=== PATIENT | male | born 1960 | race Caucasian/White ===

== ENCOUNTER 2019-11-11 09:38 | Inpatient (IN) | payer MEDICARE ==
[2019-11-11] MEDS ORDERED: SODIUM CHLORIDE 0.9% 1,000 ML IV STA (10:30)
[2019-11-11] MEDS ORDERED: LORazepam 2 MG/ML INJ IV STA (10:30)
[2019-11-11] MEDS ORDERED: SODIUM CHLORIDE 0.9% 500 ML 500 ML IV STA (10:31)
--- NOTE | 2019-11-11 10:34 | ED ---
General Adult HPI - General Source: patient, family, RN notes reviewed Mode of arrival: wheelchair Limitations: no limitations <Ozzie Naranjo - Last Filed: 11/11/19 12:40> <Christiano Tirado - Last Filed: 11/11/19 14:11> - General Chief complaint: Seizure Stated complaint: Seizure,withdrawal Time Seen by Provider: 11/11/19 10:22 - History of Present Illness Initial comments: 59-year-old male with a past medical history of alcoholism presents to the emergency department for seizure. Patient states that he quit drinking around midnight last night. States he usually drinks a few pints of vodka per day. States he has had a lot going on his life and his daughter was recently released from an ICU so he decided to quit drinking. States that this morning he had a seizure. States that he hit his head, unsure of loss of consciousness. States he does have a headache at this time. States he cannot stop shaking.Patient has no other complaints at this time including shortness of breath, chest pain, abdominal pain, nausea or vomiting, headache, or visual changes. (Ozzie Naranjo) - Related Data Allergies Allergy/AdvReac Type Severity Reaction Status Date / Time No Known Allergies Allergy Verified 11/11/19 10:06 Review of Systems ROS Other: All systems not noted in ROS Statement are negative. <Ozzie Naranjo - Last Filed: 11/11/19 12:40> ROS Other: All systems not noted in ROS Statement are negative. <Christiano Tirado - Last Filed: 11/11/19 14:11> ROS Statement: Those systems with pertinent positive or pertinent negative responses have been documented in the HPI. Past Medical History Additional Past Medical History / Comment(s): seizure from etoh states drank last night and had seizure this am states hit head requesting meds in triage for shaking Past Surgical History: Joint Replacement, Orthopedic Surgery Additional Past Surgical History / Comment(s): 3 l knee replacement r hip Past Psychological History: Anxiety, Depression Smoking Status: Current every day smoker Past Alcohol Use History: Abuse, Daily, Heavy Past Drug Use History: None Reported <Ozzie Naranjo - Last Filed: 11/11/19 12:40> General Exam Limitations: no limitations General appearance: alert, in no apparent distress Head exam: Present: atraumatic, normocephalic, normal inspection Eye exam: Present: normal appearance, PERRL, EOMI, other (Patient has abnormal right pupil secondary to injury from childhood). Absent: scleral icterus, conjunctival injection, periorbital swelling ENT exam: Present: normal exam, mucous membranes moist Neck exam: Present: normal inspection, full ROM. Absent: tenderness, meningismus Respiratory exam: Present: normal lung sounds bilaterally. Absent: respiratory distress, wheezes, rales, rhonchi, stridor Cardiovascular Exam: Present: regular rate, normal rhythm, normal heart sounds. Absent: systolic murmur, diastolic murmur, rubs, gallop, clicks Extremities exam: Present: other (Tremors noted) <Ozzie Naranjo - Last Filed: 11/11/19 12:40> Course <Christiano Tirado - Last Filed: 11/11/19 14:11> Vital Signs 11/11/19 10:02 Temperature 98.3 F Pulse Rate 71 Respiratory 18 Rate Blood Pressure 120/77 O2 Sat by Pulse 95 Oximetry - Reevaluation(s) Reevaluation #1: 11/11/19 12:47 Reevaluation: I proceeded evaluate this patient he did present with complaints of a seizure today. He is alcoholic and does drink large amount of alcohol daily. He states he had none since yesterday. Alcohol level still over 100 upon arrival here. Patient's impending alcohol withdrawal/DTs. Patient will be admitted I did discuss case with Dr. Lazaro (Christiano Tirado) EKG Findings - EKG Comments: EKG Findings:: Normal sinus rhythm, right bundle-branch block, ventricular rate 66, MI interval 166, QTc 457 <Ozzie Naranjo - Last Filed: 11/11/19 12:40> Medical Decision Making - Lab Data Result diagrams: 11/11/19 10:41 11/11/19 10:41 <Ozzie Naranjo - Last Filed: 11/11/19 12:40> - Lab Data Result diagrams: 11/11/19 10:41 11/11/19 10:41 <Christiano Tirado - Last Filed: 11/11/19 14:11> - Medical Decision Making CBC CMP unremarkable. Urinalysis unremarkable. Patient has a serum alcohol of 103. CT of the brain and C-spine was obtained which showed age-related atrophic and chronic small vessel ischemic change without acute intercranial process seen. CT cervical spine shows no evidence for acute fracture or subluxation. Patient was given Ativan which did help with tremors. However as patient did have a seizure earlier today he will be admitted on [facility] protocol for impending DTs. (Ozzie Naranjo) - Lab Data Lab Results 11/11/19 11/11/19 11/11/19 Range/Units 10:41 10:41 10:41 WBC 8.0 (3.8-10.6) k/uL RBC 4.18 L (4.30-5.90) m/uL Hgb 13.6 (13.0-17.5) gm/dL Hct 39.0 (39.0-53.0) % MCV 93.3 (80.0-100.0) fL MCH 32.4 (25.0-35.0) pg MCHC 34.7 (31.0-37.0) g/dL RDW 16.3 H (11.5-15.5) % Plt Count 256 (150-450) k/uL Neutrophils % 74 % Lymphocytes % 15 % Monocytes % 8 % Eosinophils % 2 % Basophils % 0 % Neutrophils # 5.9 (1.3-7.7) k/uL Lymphocytes # 1.2 (1.0-4.8) k/uL Monocytes # 0.6 (0-1.0) k/uL Eosinophils # 0.2 (0-0.7) k/uL Basophils # 0.0 (0-0.2) k/uL Anisocytosis Slight Sodium 139 (137-145) mmol/L Potassium 4.4 (3.5-5.1) mmol/L Chloride 101 (98-107) mmol/L Carbon Dioxide 27 (22-30) mmol/L Anion Gap 11 mmol/L BUN 15 (9-20) mg/dL Creatinine 0.91 (0.66-1.25) mg/dL Est GFR (CKD-EPI)AfAm >90 (>60 ml/min/1.73 sqM) Est GFR (CKD-EPI)NonAf >90 (>60 ml/min/1.73 sqM) Glucose 83 (74-99) mg/dL Calcium 9.3 (8.4-10.2) mg/dL Magnesium 1.7 (1.6-2.3) mg/dL Total Bilirubin 0.8 (0.2-1.3) mg/dL AST 54 (17-59) U/L ALT 17 (4-49) U/L Alkaline Phosphatase 64 (38-126) U/L Total Protein 7.3 (6.3-8.2) g/dL Albumin 4.4 (3.5-5.0) g/dL Urine Color Yellow Urine Appearance Clear (Clear) Urine pH 5.5 (5.0-8.0) Ur Specific [place] 1.015 (1.001-1.035) Urine Protein 2+ H (Negative) Urine Glucose (UA) Negative (Negative) Urine Ketones Negative (Negative) Urine Blood Negative (Negative) Urine Nitrite Negative (Negative) Urine Bilirubin Negative (Negative) Urine Urobilinogen <2.0 (<2.0) mg/dL Ur Leukocyte Esterase Negative (Negative) Urine RBC 1 (0-5) /hpf Urine WBC <1 (0-5) /hpf Ur Squamous Epith Cells <1 (0-4) /hpf Hyaline Casts 3 H (0-2) /lpf Urine Mucus Rare H (None) /hpf Salicylates <1.0 mg/dL Urine Opiates Screen Not Detected (NotDetected) Ur Oxycodone Screen Not Detected (NotDetected) Urine Methadone Screen Not Detected (NotDetected) Ur Propoxyphene Screen Not Detected (NotDetected) Ur Barbiturates Screen Not Detected (NotDetected) U Tricyclic Antidepress Not Detected (NotDetected) Ur Phencyclidine Scrn Not Detected (NotDetected) Ur Amphetamines Screen Not Detected (NotDetected) U Methamphetamines Scrn Not Detected (NotDetected) U Benzodiazepines Scrn Not Detected (NotDetected) Urine Cocaine Screen Not Detected (NotDetected) U Marijuana (THC) Screen Not Detected (NotDetected) Serum Alcohol 103 mg/dL Disposition Is patient prescribed a controlled substance at d/c from ED?: No Time of Disposition: 12:42 <Ozzie Naranjo - Last Filed: 11/11/19 12:40> <Christiano Tirado - Last Filed: 11/11/19 14:11> Clinical Impression: Alcohol withdrawal, Seizure Disposition: ADMITTED IP TO THIS HOSP Condition: Fair Referrals: Nonstaff,Physician [REFERRING] - 1-2 days
[2019-11-11 11:16] LABS: Anisocytosis Slight; Basophils % (A) 0 %; Eosinophils # (A) 0.2 k/uL (0-0.7); Eosinophils % (A) 2 %; HGB 13.6 gm/dL (13.0-17.5); Lymphocytes # (A) 1.2 k/uL (1.0-4.8); Lymphocytes % (A) 15 %; MCH 32.4 pg (25.0-35.0); MCHC 34.7 g/dL (31.0-37.0); MCV 93.3 fL (80.0-100.0); Monocytes # (A) 0.6 k/uL (0-1.0); Monocytes % (A) 8 %; Neutrophils # (A) 5.9 k/uL (1.3-7.7); Neutrophils % (A) 74 %; Platelet Count 256 k/uL (150-450); RBC 4.18 m/uL (4.30-5.90); RDW 16.3 % (11.5-15.5)
[2019-11-11 11:21] LABS: ALT 17 U/L (4-49); AST 54 U/L (17-59); African American GFR (CKD) >90 (>60 ml/min/1.73 sqM); Albumin 4.4 g/dL (3.5-5.0); Alkaline Phosphatase 64 U/L (38-126); Anion Gap 11 mmol/L; Blood Urea Nitrogen 15 mg/dL (9-20); Calcium 9.3 mg/dL (8.4-10.2); Carbon Dioxide 27 mmol/L (22-30); Chloride 101 mmol/L (98-107); Glucose 83 mg/dL (74-99); Magnesium 1.7 mg/dL (1.6-2.3); Non-African American GFR(CKD) >90 (>60 ml/min/1.73 sqM); Potassium 4.4 mmol/L (3.5-5.1); Salicylate <1.0 mg/dL; Sodium 139 mmol/L (137-145); Total Bilirubin 0.8 mg/dL (0.2-1.3); Total Protein 7.3 g/dL (6.3-8.2)
[2019-11-11 11:27] LABS: Alcohol 103 mg/dL
[2019-11-11 11:33] LABS: Appearance,Urine Clear (Clear); Bilirubin,Urine Negative (Negative); Blood,Urine Negative (Negative); Color,Urine Yellow; Glucose,Urine (UA) Negative (Negative); Hyaline Casts,Urine 3 /lpf (0-2); Ketones,Urine Negative (Negative); Leukocyte Esterase,Urine Negative (Negative); Mucus,Urine Rare /hpf; Nitrite,Urine Negative (Negative); PH, Urine 5.5 (5.0-8.0); Protein,Urine 2+ (Negative); RBC,Urine 1 /hpf (0-5); Specific Gravity,Urine 1.015 (1.001-1.035); Squamous Epithelial Cell,Urine <1 /hpf (0-4); Urobilinogen,Urine <2.0 mg/dL (<2.0); WBC,Urine <1 /hpf (0-5)
[2019-11-11 11:53] LABS: Amphetamine Screen,Urine Not Detected (NotDetected); Barbiturate Screen,Urine Not Detected (NotDetected); Benzodiazepines Screen,Urine Not Detected (NotDetected); Cocaine Screen,Urine Not Detected (NotDetected); Methadone Screen, Urine Not Detected (NotDetected); Opiate Screen,Urine Not Detected (NotDetected); Oxycodone Screen, Urine Not Detected (NotDetected); Phencyclidine Screen,Urine Not Detected (NotDetected); Tricyclic Antidepressant,Urine Not Detected (NotDetected); Urn Cannabinoid Scrn Not Detected (NotDetected)
--- NOTE | 2019-11-11 12:04 | CT ---
EXAMINATION TYPE: CT brain sung stuart DATE OF EXAM: 11/11/2019 COMPARISON: None HISTORY: Seizure CT DLP: 1349.[address] of the brain was performed. The ventricles, basal cisterns and sulci overlying the cerebral convexities demonstrate mild enlargem ent. There is no evidence for intracranial hemorrhage or sulcal effacement. There is decreased attenuatio n about the periventricular white matter and deep white matter of both cerebral hemispheres, compatib le with chronic small vessel ischemia. No mass effects are seen. If symptoms persist consider MRI. Osseous calvarium is intact. IMPRESSION: 1. Age related atrophic and chronic small vessel ischemic change without acute intracranial process seen at this time. CT Cervical Spine: Unenhanced CT of the cervical spine was performed with bone and soft tissue window settings submitted . Coronal and sagittal reconstruction is obtained. There is normal alignment and prevertebral soft tissues. No evidence for acute cervical fracture . Reversal of the normal cervical lordosis which can be seen in patients with muscle spasticity. Scatte red degenerative disc disease and spondylosis. Biapical scarring. IMPRESSION: 1. No evidence for acute fracture or subluxation of the cervical spine.
[2019-11-11] MEDS ORDERED: NALOXONE 0.4 MG/ML 1 ML VIAL IV PRN (12:42)
[2019-11-11] MEDS ORDERED: MAGNESIUM SULFATE-D5W PMX 1 GM in DEXTROSE/WATER 1 100ML.BAG IVPB ONE (12:42)
[2019-11-11] MEDS ORDERED: THIAMINE 100 MG/ML 2 ML VIAL IM STA (12:42)
[2019-11-11] MEDS ORDERED: LORazepam 2 MG/ML INJ IV PRN (12:42)
[2019-11-11] MEDS: SODIUM CHLORIDE 0.9% 1,000 ML IV SCH ×2 (13:34→21:43)
[2019-11-11] MEDS: LORazepam 2 MG/ML INJ IV PRN ×2 (16:00→21:29)
[2019-11-11] MEDS ORDERED: ALBUTEROL NEBULIZED 2.5 MG/3 ML INHALATION PRN (16:15)
--- NOTE | 2019-11-11 16:32 | P.HPIM ---
History of Present Illness 59-year-old male was admitted with the complaints of seizure patient is a poor historian and I can't get any clear history of seizures from the patient although he denies any bowel or bladder incontinence. I do not have any witnesses available at this time. Patient states he lives in a three quarters house which is a house for the people who quit alcohol but he started drinking about a week ago drinks about a pint of vodka quit drinking yesterday afternoon or evening started having seizure today. Although patient admits to having primary seizure disorder patient cannot remember the medication which we're trying to find out from the house where he lives. Patient says he had multiple seizures in the past because of which she is on antiseizure medication from his history patient appears like may have a primary seizure disorder. Patient is extremely poor historian and I do not see any of his past medical records to brandy racheal this unfortunately pharmacies are closed today as well. Patient will be on Ativan EEG will be obtained neurology will be consulted. Review of Systems REVIEW OF SYSTEMS: CONSTITUTIONAL: No fever, no malaise, no fatigue. HEENT: No recent visual problems or hearing problems. Denied any sore throat. CARDIOVASCULAR: No chest pain, orthopnea, PND, no palpitations, no syncope. PULMONARY: No shortness of breath, no cough, no hemoptysis. GASTROINTESTINAL: No diarrhea, no nausea, no vomiting, no abdominal pain. NEUROLOGICAL: No headaches, no weakness, no numbness. HEMATOLOGICAL: Denies any bleeding or petechiae. GENITOURINARY: Denies any burning micturition, frequency, or urgency. MUSCULOSKELETAL/RHEUMATOLOGICAL: Denies any joint pain, swelling, or any muscle pain. ENDOCRINE: Denies any polyuria or polydipsia. The rest of the 14-point review of systems is negative. Past Medical History Past Medical History: Seizure Disorder Additional Past Medical History / Comment(s): seizure from etoh states drank last night and had seizure this am states hit head requesting meds in triage fo r shaking History of Any Multi-Drug Resistant Organisms: None Reported Past Surgical History: Joint Replacement, Orthopedic Surgery Additional Past Surgical History / Comment(s): 3 l knee replacement r hip Past Anesthesia/Blood Transfusion Reactions: No Reported Reaction Past Psychological History: Anxiety, Depression Smoking Status: Current every day smoker Past Alcohol Use History: Abuse, Daily, Heavy Past Drug Use History: None Reported Medications and Allergies Home Medications Medication Instructions Recorded Confirmed Type Albuterol Inhaler [Ventolin Hfa 2 puff INHALATION RT-Q8H PRN 11/11/19 11/11/19 History Inhaler] Gabapentin [Neurontin] 600 mg PO QID 11/11/19 11/11/19 History LORazepam [Ativan] 2 mg PO HS 11/11/19 11/11/19 History Tamsulosin HCl [Flomax] 0.4 mg PO BID 11/11/19 11/11/19 History traZODone HCL 150 mg PO HS 11/11/19 11/11/19 History Allergies Allergy/AdvReac Type Severity Reaction Status Date / Time No Known Allergies Allergy Verified 11/11/19 13:16 Physical Exam Vitals: Vital Signs Temp Pulse Pulse Resp BP BP Pulse Ox 11/11/19 14:27 98.4 F 76 18 155/85 94 L 11/11/19 13:13 98.0 F 83 18 139/74 97 11/11/19 10:02 98.3 F 71 18 120/77 95 Intake and Output 11/11/19 11/11/19 11/11/19 06:59 14:59 22:59 Other: Weight 78.69 kg PHYSICAL EXAMINATION: GENERAL: The patient is oriented x3, not in any acute distress. Well developed, well nourished. Patient is drowsy sleepy HEENT: Pupils are round and equally reacting to light. EOMI. No scleral icterus. No conjunctival pallor. Normocephalic, atraumatic. No pharyngeal erythema. No thyromegaly. CARDIOVASCULAR: S1 and S2 present. No murmurs, rubs, or gallops. PULMONARY: Chest is clear to auscultation, no wheezing or crackles. ABDOMEN: Soft, nontender, nondistended, normoactive bowel sounds. No palpable organomegaly. MUSCULOSKELETAL: No joint swelling or deformity. EXTREMITIES: No cyanosis, clubbing, or pedal edema. NEUROLOGICAL: Gross neurological examination did not reveal any focal deficits. SKIN: No rashes. Results CBC & Chem 7: 11/11/19 10:41 11/11/19 10:41 Labs: Abnormal Lab Results - Last 24 Hours (Table) 11/11/19 11/11/19 Range/Units 10:41 10:41 RBC 4.18 L (4.30-5.90) m/uL RDW 16.3 H (11.5-15.5) % Urine Protein 2+ H (Negative) Hyaline Casts 3 H (0-2) /lpf Urine Mucus Rare H (None) /hpf Thrombosis Risk Factor Assmnt - Choose All That Apply Each Factor Represents 1 point: Medical pt on bed rest Thrombosis Risk Factor Assessment Total Risk Factor Score: 1 Thrombosis Risk Factor Assessment Level: Low Risk Assessment and Plan Plan: -Seizure: Patient may have had an alcohol withdrawal seizure although I cannot rule out a breakthrough seizure unsure whether what medications patient takes at home and patient is unable to give me a clear history. Neurology will be consulted EEG will be obtained. Patient will be on Ativan [facility] protocol. -Alcohol abuse -Alcohol withdrawal patient will be monitored and will be treated with Ativan as needed for withdrawal -Possible seizure disorder -Depression
[2019-11-11] MEDS: THIAMINE 100 MG TAB PO SCH (17:19)
[2019-11-11] MEDS: GABAPENTIN 300 MG CAP PO SCH ×2 (17:19→21:28)
[2019-11-11] MEDS: FAMOTIDINE 20 MG TAB PO SCH (21:29)
[2019-11-11] MEDS: TAMSULOSIN 0.4 MG CAP.ER.24H PO SCH (21:29)
[2019-11-11] MEDS ORDERED: traZODone HCL 50 MG TAB PO ONE (21:36)
[2019-11-11] MEDS: HEPARIN SODIUM,PORCINE 5,000 UNIT/ML 1 ML VIAL SQ SCH (23:21)
[2019-11-12] MEDS: LORazepam 2 MG/ML INJ IV PRN ×2 (06:05→21:11)
[2019-11-12] MEDS: SODIUM CHLORIDE 0.9% 1,000 ML IV SCH ×2 (06:06→19:44)
[2019-11-12] MEDS: FAMOTIDINE 20 MG TAB PO SCH ×2 (08:35→21:11)
[2019-11-12] MEDS: GABAPENTIN 300 MG CAP PO SCH ×4 (08:35→21:11)
[2019-11-12] MEDS: HEPARIN SODIUM,PORCINE 5,000 UNIT/ML 1 ML VIAL SQ SCH ×3 (08:35→23:07)
[2019-11-12] MEDS: THIAMINE 100 MG TAB PO SCH ×2 (08:36→17:29)
[2019-11-12] MEDS: TAMSULOSIN 0.4 MG CAP.ER.24H PO SCH ×2 (08:36→21:11)
[2019-11-12] MEDS ORDERED: IBUPROFEN 600 MG TAB PO PRN (14:46)
--- NOTE | 2019-11-12 15:56 | EEG ---
ELECTROENCEPHALOGRAM REPORT DATE OF SERVICE: 11/12/2019. PREAMBLE: This is a 59-year-old male with history of seizure disorder and alcoholism. He has been drinking a pint of vodka a day. EEG FINDINGS: A routine 21-channel awake digital EEG recording was accomplished utilizing the 10/20 international system with bipolar and referential montages. The background consists of well developed, well regulated, moderate amplitude activity in 8 to 9 Hz alpha. Background is posterior-dominant and reactive to eye opening and closing. Photic driving response was not clearly seen. Drowsiness was seen with appearance of bilaterally symmetric theta frequency rhythm, but deeper stages of sleep were not seen. No focal or generalized epileptiform activity was seen. EKG rhythm lead revealed no acute dysrhythmia. IMPRESSION: This is a normal awake and drowsy EEG. No focal lateralized or epileptiform activity was seen. MMGRACEL / IJN: [id number] / MTDD
--- NOTE | 2019-11-12 18:05 | P.CNNES ---
History of Present Illness Consult date: 11/12/19 Requesting physician: Karly Franco Reason for Consult: Recent seizure History of Present Illness: Patient is a 59-year-old male, who is not a very good historian, states has history of alcoholism since he was age 25. Patient states that he is currently living in three-quarter house, and was sober, mated 90 days. He states that a few days ago, his daughter was involved in a car accident. He got stressed out. He started drinking, has been drinking fifth of vodka daily for last 3 days. He had a seizure, fell backwards. Did not bite his tongue or lost control of urine. Patient frequently changes statement about his seizure history. He states that he had suffered from some facial injury from scissors at age 8. Afterwards he started having seizures. He states that he was not treated for seizures in [place]. He states that he had about 15 seizures in his lifetime. He states he has been on Keppra for 30 years, although Keppra has been in the market only for last 15 years. He states that he takes Keppra 500 mg once a day, although when I asked told him that it is typically taken twice a day, he states "yes probably it is twice a day". He states that he needs prescription of Keppra, as ran out of Keppra but later stated that he has about a bottle full of Keppra, but has not taken it for the last few days. Patient's blood alcohol level was 103. Urine drug screen negative. UA is negative. CMP normal. CBC with MCV 93.3. Patient had an EEG performed today, which is normal. No epileptiform activity was seen. Review of Systems Complains of back pain related to fall from seizure. Denies headache, double vision, numbness tingling focal weakness. Past Medical History Past Medical History: Seizure Disorder Additional Past Medical History / Comment(s): seizure from etoh states drank la st night and had seizure this am states hit head requesting meds in triage for shaking History of Any Multi-Drug Resistant Organisms: None Reported Past Surgical History: Joint Replacement, Orthopedic Surgery Additional Past Surgical History / Comment(s): 3 l knee replacement r hip Past Anesthesia/Blood Transfusion Reactions: No Reported Reaction Past Psychological History: Anxiety, Depression Smoking Status: Current every day smoker Past Alcohol Use History: Abuse, Daily, Heavy Past Drug Use History: None Reported Medications and Allergies Home Medications Medication Instructions Recorded Confirmed Type Albuterol Inhaler [Ventolin Hfa 2 puff INHALATION RT-Q8H PRN 11/11/19 11/11/19 History Inhaler] Gabapentin [Neurontin] 600 mg PO QID 11/11/19 11/11/19 History LORazepam [Ativan] 2 mg PO HS 11/11/19 11/11/19 History Tamsulosin HCl [Flomax] 0.4 mg PO BID 11/11/19 11/11/19 History traZODone HCL 150 mg PO HS 11/11/19 11/11/19 History Allergies Allergy/AdvReac Type Severity Reaction Status Date / Time No Known Allergies Allergy Verified 11/11/19 13:16 Physical Examination - Vital Signs Vital Signs: Vital Signs Temp Pulse Resp BP Pulse Ox 11/12/19 11:28 98.3 F 66 17 130/61 96 11/12/19 05:00 98.3 F 98 16 130/71 96 11/11/19 22:22 99.5 F 82 20 143/78 95 Intake and Output 11/12/19 11/12/19 11/12/19 06:59 14:59 22:59 Intake Total 960 Balance 960 Intake: Intake, IV Titration 960 Amount Sodium Chloride 0.9% 1, 960 000 ml @ 120 mls/hr IV . Q8H20M [facility] Rx#:[id number] Other: Voiding Method Urinal Urinal Weight 78.69 kg On examination patient is a late middle aged male, in no distress. He is alert and awake. Speech is mildly dysarthric, but no aphasia. On cranial nerve examination pupils are round and reacting to light, visual wolff are full on confrontation extra muscles are intact with no nystagmus. Face is symmetric and tongue protrudes to the midline. Palatal elevation and sensation normal. On muscle strength testing the strength is normal in arms and legs distally and proximally reflexes symmetric and plantars downgoing no ataxia for [id number] tone and bulk of muscles normal. No bruit or murmur. Results - Laboratory Findings CBC and BMP: 11/11/19 10:41 11/11/19 10:41 Abnormal Lab Findings: Abnormal Labs 11/11/19 11/11/19 10:41 10:41 RBC 4.18 L RDW 16.3 H Urine Protein 2+ H Hyaline Casts 3 H Urine Mucus Rare H Assessment and Plan Assessment: * 59-year-old male with history of alcoholism, seizure disorder, came with alcohol intoxication and a possible seizure. Patient has not been taking his Keppra for the last few days. Plan: * Resume Keppra 500 mg twice a day. * Abstinence from alcohol. * Mobic for low back pain. * Watch for alcohol withdrawal. * Patient was informed of [place] state law of no driving unless seizure free for 6 months, climbing ladders, operating dangerous machinery or unsupervised swimming.
[2019-11-12] MEDS: MELOXICAM 7.5 MG TAB PO SCH (19:43)
[2019-11-12] MEDS: levETIRAcetam 500 MG TAB PO SCH (21:11)
[2019-11-12] MEDS ORDERED: traZODone HCL 50 MG TAB PO ONE (21:44)
[2019-11-13] MEDS: LORazepam 2 MG/ML INJ IV PRN ×8 (02:37→21:37)
[2019-11-13] MEDS: SODIUM CHLORIDE 0.9% 1,000 ML IV SCH ×2 (02:48→09:14)
[2019-11-13] MEDS: GABAPENTIN 300 MG CAP PO SCH ×4 (09:13→21:16)
[2019-11-13] MEDS: TAMSULOSIN 0.4 MG CAP.ER.24H PO SCH ×2 (09:13→21:16)
[2019-11-13] MEDS: levETIRAcetam 500 MG TAB PO SCH ×2 (09:14→21:16)
[2019-11-13] MEDS: HEPARIN SODIUM,PORCINE 5,000 UNIT/ML 1 ML VIAL SQ SCH ×3 (09:14→21:16)
[2019-11-13] MEDS: THIAMINE 100 MG TAB PO SCH ×2 (09:14→16:55)
[2019-11-13] MEDS: FAMOTIDINE 20 MG TAB PO SCH ×2 (09:14→21:16)
[2019-11-13] MEDS: MELOXICAM 7.5 MG TAB PO SCH (09:33)
--- NOTE | 2019-11-13 15:49 | P.PN ---
Subjective Progress Note Date: 11/13/19 Principal diagnosis: 59-year-old male was admitted with the complaints of seizure patient is a poor historian and I can't get any clear history of seizures from the patient although he denies any bowel or bladder incontinence. I do not have any witnesses available at this time. Patient states he lives in a three quarters house which is a house for the people who quit alcohol but he started drinking about a week ago drinks about a pint of vodka quit drinking yesterday afternoon or evening started having seizure today. Although patient admits to having primary seizure disorder patient cannot remember the medication which we're trying to find out from the house where he lives. Patient says he had multiple seizures in the past because of which she is on antiseizure medication from his history patient appears like may have a primary seizure disorder. Patient is extremely poor historian and I do not see any of his past medical records to verify this unfortunately pharmacies are closed today as well. Patient will be on Ativan EEG will be obtained neurology will be consulted. 11/13/2019 Patient is lying in bed sleeping but easily arousable. Per nursing staff senthil ent had an episode of incontinence of urine and stool and attempted to make it to the bathroom and shower and left the water running and stool everywhere. Patient proceeded to another patient's room completely naked and had to be redirected by nursing staff back to his room. Patient was resumed on Keppra and will continue at this time. Neurology is following. Trazodone for sleep was reordered as patient normally takes this daily. Patient underwent an EEG yesterday and was normal. Case management and social work are following as the patient has been staying in a three-quarter house and was sober for at least 3 months. Patient states that his daughter was in a motor vehicle accident and patient became extremely stressed and started drinking again over the last couple of days. Will continue to monitor closely. Review of Systems: Cardiovascular: No reports of chest pain or palpitations Respiratory: No reports of shortness of breath or cough GI: No reports of nausea, vomiting, or diarrhea : No reports of dysuria or retention Objective - Vital Signs Vital signs: Vital Signs Temp 98 F 11/13/19 12:09 Pulse 91 11/13/19 12:09 Resp 20 11/13/19 12:09 BP 140/78 11/13/19 12:09 Pulse Ox 96 11/13/19 12:09 Intake & Output 11/12/19 11/13/19 11/13/19 18:59 06:59 18:59 Intake Total 1380 960 Output Total 600 Balance -600 1380 960 Weight 78.69 kg Intake: Intake, IV Titration 1380 960 Amount Sodium Chloride 0.9% 1, 1380 960 000 ml @ 120 mls/hr IV . Q8H20M [facility] Rx#:[id number] Output: Urine 600 Other: Voiding Method Urinal Toilet Urinal # Voids 3 3 1 - Exam GENERAL: The patient is oriented x3, not in any acute distress. Well developed, well nourished. Patient is drowsy and sleeping but easily arousable HEENT: Pupils are round and equally reacting to light. EOMI. No scleral icterus. No conjunctival pallor. Normocephalic, atraumatic. No pharyngeal erythema. No thyromegaly. CARDIOVASCULAR: S1 and S2 present. No murmurs, rubs, or gallops. PULMONARY: Chest is clear to auscultation, no wheezing or crackles. ABDOMEN: Soft, non-tender, nondistended, normoactive bowel sounds. No palpable organomegaly. MUSCULOSKELETAL: No joint swelling or deformity. EXTREMITIES: No cyanosis, clubbing, or pedal edema. NEUROLOGICAL: Gross neurological examination did not reveal any focal deficits. SKIN: No rashes. - Labs CBC & Chem 7: 11/11/19 10:41 11/11/19 10:41 Assessment and Plan Assessment: -Seizure: Patient may have had an alcohol withdrawal seizure although I cannot rule out a breakthrough seizure unsure whether what medications patient takes at home and patient is unable to give me a clear history. Neurology will be consulted EEG will be obtained. Patient will be on Ativan [facility] protocol. EEG was normal. Patient was resumed on Keppra 500 mg twice daily. Neurology is following. -Alcohol abuse -Alcohol withdrawal patient will be monitored and will be treated with Ativan as needed for withdrawal -Possible seizure disorder -Depression Plan: Continue current medications, management, and symptomatic treatment. Continue with [facility] protocol for acute alcohol withdrawals. Trazodone reordered as part of his home medications. Case management and social work are following as patient currently resides at a three-quarter home but unsure if they will accept him back as he was sober for 90 days and recently experienced some stress with family and has been binge drinking for the last 3 days. Further recommendations to follow.
--- NOTE | 2019-11-13 17:37 | P.PN ---
Subjective Progress Note Date: 11/12/19 Patient was admitted for seizures and alcohol withdrawal neurology was consulted as there is a concern of primary seizure disorder. They're recommending Keppra and patient underwent the EEG results of which are pending. Constitutional: Denied any fatigue denied any fever. Cardio vascular: denied any chest pain, palpitations Gastrointestinal denied any nausea vomiting Pulmonary: Denied any shortness of breath cough Neurologic denied any new focal deficits All inpatient medications were reviewed and appropriate changes in these medications as dictated in the interval history and assessment and plan. Objective - Vital Signs Vital signs: Vital Signs Temp 98 F 11/13/19 12:09 Pulse 91 11/13/19 12:09 Resp 20 11/13/19 12:09 BP 140/78 11/13/19 12:09 Pulse Ox 96 11/13/19 12:09 Intake & Output 11/12/19 11/13/19 11/13/19 18:59 06:59 18:59 Intake Total 1380 960 Output Total 600 Balance -600 1380 960 Weight 78.69 kg Intake: Intake, IV Titration 1380 960 Amount Sodium Chloride 0.9% 1, 1380 960 000 ml @ 120 mls/hr IV . Q8H20M [facility] Rx#:[id number] Output: Urine 600 Other: Voiding Method Urinal Toilet Urinal # Voids 3 3 1 - Exam PHYSICAL EXAMINATION: GENERAL: The patient is alert and oriented x2-3, not in any acute distress. Well developed, well nourished. Patient does have alcohol withdrawal tremors HEENT: Pupils are round and equally reacting to light. EOMI. No scleral icterus. No conjunctival pallor. Normocephalic, atraumatic. No pharyngeal erythema. No thyromegaly. CARDIOVASCULAR: S1 and S2 present. No murmurs, rubs, or gallops. PULMONARY: Chest is clear to auscultation, no wheezing or crackles. ABDOMEN: Soft, nontender, nondistended, normoactive bowel sounds. No palpable organomegaly. MUSCULOSKELETAL: No joint swelling or deformity. EXTREMITIES: No cyanosis, clubbing, or pedal edema. NEUROLOGICAL: Gross neurological examination did not reveal any focal deficits. SKIN: No rashes. - Labs CBC & Chem 7: 11/11/19 10:41 11/11/19 10:41 Assessment and Plan Plan: -Seizure: Patient may have had an alcohol withdrawal seizure , neurology evaluated the patient patient on Keppra which will be resumed. Patient will be on Ativan CIWA protocol. -Alcohol abuse -Alcohol withdrawal patient will be monitored and will be treated with Ativan as needed for withdrawal -Possible seizure disorder -Depression
--- NOTE | 2019-11-13 19:05 | P.PN ---
Subjective Progress Note Date: 11/13/19 No further seizures. Patient seems to be slightly withdrawing from alcohol. His CIWA score is high. He is receiving Ativan 1 mg every 2-3 hours. Patient also has significant anxiety problem. Patient is tolerating Keppra well. Objective - Vital Signs Vital signs: Vital Signs Temp 98 F 11/13/19 12:09 Pulse 91 11/13/19 12:09 Resp 20 11/13/19 12:09 BP 140/78 11/13/19 12:09 Pulse Ox 96 11/13/19 12:09 Intake & Output 11/13/19 11/13/19 11/14/19 06:59 18:59 06:59 Intake Total 1380 960 Balance 1380 960 Intake: Intake, IV Titration 1380 960 Amount Sodium Chloride 0.9% 1, 1380 960 000 ml @ 120 mls/hr IV . Q8H20M [facility] Rx#:[id number] Other: Voiding Method Toilet Urinal # Voids 3 1 - Exam Mental status, speech and functions are normal. Patient does appear tremulous. Strength is normal. - Labs CBC & Chem 7: 11/11/19 10:41 11/11/19 10:41 Assessment and Plan Assessment: * 59-year-old male with history of alcoholism, seizure disorder, came with alcohol intoxication and a possible seizure. Patient has not been taking his Keppra for the last few days. * Possible alcohol withdrawal syndrome with mild DTs. Plan: * Continue Keppra 500 mg twice a day. * Abstinence from alcohol. * Mobic for low back pain. * Continue CIWA protocol. * Patient was informed of [place] state law of no driving unless seizure free for 6 months, climbing ladders, operating dangerous machinery or unsupervised swimming.
[2019-11-13] MEDS: traZODone HCL 50 MG TAB PO SCH (21:16)
[2019-11-13] MEDS: chlordiazePOXIDE 25 MG CAP PO SCH (21:56)
[2019-11-14] LABS: Glucose,Whole Blood 121 mg/dL (75-99)
[2019-11-14 00:56] LABS: African American GFR (CKD) >90 (>60 ml/min/1.73 sqM); Anion Gap 5 mmol/L; Blood Urea Nitrogen 18 mg/dL (9-20); Calcium 9.6 mg/dL (8.4-10.2); Carbon Dioxide 28 mmol/L (22-30); Chloride 107 mmol/L (98-107); Glucose 108 mg/dL (74-99); Non-African American GFR(CKD) >90 (>60 ml/min/1.73 sqM); Potassium 4.4 mmol/L (3.5-5.1); Sodium 140 mmol/L (137-145)
[2019-11-14] MEDS: LORazepam 2 MG/ML INJ IV PRN ×3 (02:00→04:18)
[2019-11-14 05:40] LABS: African American GFR (CKD) >90 (>60 ml/min/1.73 sqM); Anion Gap 5 mmol/L; Blood Urea Nitrogen 13 mg/dL (9-20); Calcium 9.4 mg/dL (8.4-10.2); Carbon Dioxide 28 mmol/L (22-30); Chloride 108 mmol/L (98-107); Glucose 102 mg/dL (74-99); Non-African American GFR(CKD) >90 (>60 ml/min/1.73 sqM); Potassium 3.7 mmol/L (3.5-5.1); Sodium 141 mmol/L (137-145)
[2019-11-14] MEDS: chlordiazePOXIDE 25 MG CAP PO SCH ×4 (06:00→22:02)
[2019-11-14 07:05] LABS: Anisocytosis Slight; Basophils % (A) 0 %; Eosinophils # (A) 0.5 k/uL (0-0.7); Eosinophils % (A) 8 %; HCT 34.2 % (39.0-53.0); HGB 11.5 gm/dL (13.0-17.5); Lymphocytes # (A) 1.3 k/uL (1.0-4.8); Lymphocytes % (A) 21 %; MCHC 33.5 g/dL (31.0-37.0); MCV 95.5 fL (80.0-100.0); Monocytes # (A) 0.5 k/uL (0-1.0); Monocytes % (A) 7 %; Neutrophils # (A) 3.9 k/uL (1.3-7.7); Neutrophils % (A) 62 %; Platelet Count 207 k/uL (150-450); RBC 3.58 m/uL (4.30-5.90); RDW 16.3 % (11.5-15.5); WBC 6.3 k/uL (3.8-10.6)
[2019-11-14] MEDS: SODIUM CHLORIDE 0.9% 1,000 ML IV SCH ×4 (08:45→16:22)
[2019-11-14] MEDS: PROPOFOL 1,000 MG in EMPTY BAG 1 BAG IV SCH ×4 (09:44→18:49)
--- NOTE | 2019-11-14 09:56 | XR ---
EXAMINATION TYPE: XR chest 1V portable DATE OF EXAM: 11/14/2019 CLINICAL HISTORY: ETO G-tube placement. TECHNIQUE: 3 AP portable supine views of the chest are obtained.. COMPARISON: None. FINDINGS: There is endotracheal tube with tip just below inferior clavicular margin approximately 5 cm above luisa. There is orogastric tube with tip at level of diaphragmatic hiatus. Recommend advanc ing 9 to 10 cm. Lungs are clear without pleural effusion or pneumothorax. Cardiac silhouette size appears within norm al limits. Osseous structures are intact. Overlying EKG leads are seen. IMPRESSION: 1. New endotracheal tube satisfactory in position. Recommend advancing orogastric tube 9 to 10 cm to have side port below diaphragmatic hiatus. 2. No suspicious acute process.
[2019-11-14 10:19] LABS: ABG Base Excess 3.1 mmol/L; ABG HCO3 28 mmol/L (21-25); ABG Oxygen Saturation 99.6 % (94-97); ABG PCO2 47 mmHg (35-45); ABG PH 7.39 (7.35-7.45); ABG PO2 266 mmHg (83-108); ABG TCO2 30 mmol/L (19-24); Allen Test Performed? Yes
[2019-11-14] MEDS: MELOXICAM 7.5 MG TAB PO SCH (11:24)
[2019-11-14] MEDS: GABAPENTIN 300 MG CAP PO SCH ×4 (11:26→22:01)
[2019-11-14] MEDS: TAMSULOSIN 0.4 MG CAP.ER.24H PO SCH ×2 (11:30→21:58)
[2019-11-14] MEDS: FAMOTIDINE 20 MG TAB PO SCH ×2 (11:31→21:58)
[2019-11-14] MEDS: levETIRAcetam 500 MG TAB PO SCH ×2 (11:31→21:58)
[2019-11-14] MEDS: HEPARIN SODIUM,PORCINE 5,000 UNIT/ML 1 ML VIAL SQ SCH ×2 (11:31→17:02)
[2019-11-14] MEDS: THIAMINE 100 MG TAB PO SCH ×2 (11:31→18:06)
--- NOTE | 2019-11-14 12:35 | P.CNPUL ---
History of Present Illness Consult date: 11/14/19 Requesting physician: Ankit E Sheet Reason for consult: other (Acute alcohol withdrawal, and delirium tremens) Chief complaint: Seizure History of present illness: This is a 59-year-old white male with history of alcoholism, since he was 25 years old. Patient lives in a three-quarter house. And supposedly has been sober for the last 90 days. Few days prior to admission, his daughter was in volved in a motor vehicle accident, patient was stressed out, and he started drinking again on the average of fifth of vodka daily for the last 3 days prior to admission. He claimed that he had a seizure, fell backwards, did not bite his tongue, and did not lose control of urine. Patient is known to have history of seizure disorder and has been on Keppra. In the ER, patient was shaking continuously, extremely tremulous, and he had a very sketchy poor history. Patient was admitted and his alcohol level at the time was 103. Drug screen was negative. Labs were basically unremarkable, and he had an EEG on the day of admission which was basically normal. Patient was managed by the admitting physician for his alcohol withdrawal, and last night patient was enough for point leather restraints, and he was extremely agitated, he had an extremely high CIWA score. Patient was transferred to the ICU, and I have recommended intubation . However patient apparently calm down with medications in the ICU until early this morning he was extremely agitated, and the nurse taking care of the patient was concerned about patient not able to protect his airways. Then I recommended immediate intubation and placement on mechanical ventilation. I saw the patient in the ICU on mechanical ventilation, he is now on assist control mode of mechanical ventilation, rate is 14 tidal volume is 500 FiO2 down to 35% and PEEP of 5. Patient is on propofol at 30 mcg/kg/m, and he is on IV fluid at 1 20 mL per hour. Hemodynamically stable, he has sinus bradycardia, but no hemodynamic instability. Chest x-ray post intubation showed no suspicious process. Review of Systems ROS unobtainable: due to endotracheal tube Past Medical History Past Medical History: Seizure Disorder Additional Past Medical History / Comment(s): seizure from etoh states drank last night and had seizure this am states hit head requesting meds in triage for shaking History of Any Multi-Drug Resistant Organisms: None Reported Past Surgical History: Joint Replacement, Orthopedic Surgery Additional Past Surgical History / Comment(s): 3 l knee replacement r hip Past Anesthesia/Blood Transfusion Reactions: No Reported Reaction Past Psychological History: Anxiety, Depression Smoking Status: Current every day smoker Past Alcohol Use History: Abuse, Daily, Heavy Past Drug Use History: None Reported Medications and Allergies Home Medications Medication Instructions Recorded Confirmed Type Albuterol Inhaler [Ventolin Hfa 2 puff INHALATION RT-Q8H PRN 11/11/19 11/11/19 History Inhaler] Gabapentin [Neurontin] 600 mg PO QID 11/11/19 11/11/19 History LORazepam [Ativan] 2 mg PO HS 11/11/19 11/11/19 History Tamsulosin HCl [Flomax] 0.4 mg PO BID 11/11/19 11/11/19 History traZODone HCL 150 mg PO HS 11/11/19 11/11/19 History Allergies Allergy/AdvReac Type Severity Reaction Status Date / Time No Known Allergies Allergy Verified 11/11/19 13:16 Physical Exam Vitals: Vital Signs Temp Pulse Pulse Resp BP BP Pulse Ox 11/14/19 11:00 49 L 14 98/71 99 11/14/19 10:30 51 L 14 135/83 100 11/14/19 10:00 59 L 14 132/87 100 11/14/19 09:30 60 14 135/85 100 11/14/19 09:00 62 32 H 157/92 99 11/14/19 08:00 97.4 F L 53 L 62 19 143/70 99 11/14/19 07:00 52 L 12 132/81 98 11/14/19 06:00 45 L 12 102/66 98 11/14/19 05:00 48 L 14 135/69 95 11/14/19 04:00 97.7 F 66 19 138/80 97 11/14/19 03:00 60 15 157/83 97 11/14/19 02:00 62 17 149/83 96 11/14/19 01:00 57 L 15 156/85 97 11/14/19 00:00 97.8 F 61 21 151/82 95 11/13/19 21:00 98.0 F 62 16 137/83 97 Intake and Output 11/13/19 11/14/19 11/14/19 22:59 06:59 14:59 Intake Total 590 360 638.441 Output Total 1150 435 Balance 590 -790 203.441 Intake: Intake, IV Titration 360 638.441 Amount Propofol 1,000 mg In 38.441 Empty Bag 1 bag @ 10 MCG/ KG/MIN 4.721 mls/hr IV . [id number] [facility] Rx#:[id number] Sodium Chloride 0.9% 1, 360 600 000 ml @ 120 mls/hr IV . Q8H20M [facility] Rx#:[id number] Oral 590 Output: Urine 1150 435 Other: Voiding Method Indwelling Catheter # Voids 2 Weight 78.69 kg Physical Exam: Revealed a 59-year-old white male intubated, mechanically ventilated, in no distress. Sedated, on propofol. Head: Atraumatic, normocephalic. Endotracheal tube and orogastric tube are intact. HEENT:[Neck is supple.] [No neck masses.] [No thyromegaly.] [No JVD.] PERRLA, EOMI, no icterus. Chest: [Clear throughout, no crackles, no rhonchi, no wheezes.] Symmetrical chest expansion. Cardiac Exam: [Normal S1 and S2, no S3 gallop, no murmur.] Abdomen: [Soft, nontender, no megaly, no rebound, no guarding, normal bowel sounds.] Extremities: [No clubbing, no edema, no cyanosis.] Good distal pulses bilaterally. Skin: No rashes. No petechiae Neurological Exam: Sedated, on propofol, could not perform full neurological exam. Psychiatric: Could not be performed. Lymphatics: No lymphadenopathy. Results - Laboratory Findings CBC and BMP: 11/14/19 06:00 11/14/19 04:57 Abnormal lab findings: Abnormal Labs 11/11/19 11/11/19 11/13/19 10:41 10:41 23:31 RBC 4.18 L Hgb Hct RDW 16.3 H Chloride Glucose POC Glucose (mg/dL) 121 H Urine Protein 2+ H Hyaline Casts 3 H Urine Mucus Rare H 11/13/19 11/14/19 11/14/19 23:48 04:57 06:00 RBC 3.58 L Hgb 11.5 L Hct 34.2 L RDW 16.3 H Chloride 108 H Glucose 108 H 102 H POC Glucose (mg/dL) Urine Protein Hyaline Casts Urine Mucus - Diagnostic Findings Chest x-ray: image reviewed (As noted in HPI.) Additional studies: CT head and cervical spine on admission was basically unremarkable. Assessment and Plan Assessment: Impression: 1: Acute alcohol withdrawal, acute delirium tremens. 2: Possible seizure on presentation, patient is known to have history of seizures. May or may not be related to alcohol. This was not a witnessed seizure. 3: History of alcoholism. 4: Acute alcohol intoxication upon presentation to the ER. 5: History of depression. Recommendation: Patient was intubated mostly to protect his airways, and to protect from self- harm. Continue ventilatory support. Address nutritional support, started on enteral feeding. GI and DVT prophylaxis. Continue propofol and thiamine. Continue seizure meds as per neurology on the case. Continue to monitor in the ICU, will follow. Time with Patient: Greater than 30
[2019-11-14] MEDS ORDERED: DOPamine DRIP 800 MG in DEXTROSE/WATER 1 250ML.BAG IV SCH (12:45)
--- NOTE | 2019-11-14 15:00 | P.PN ---
Subjective anxiety and depression and cigarette smoker. He presents with signs symptoms of alcohol withdrawal and seizure. Patient was admitted for seizures and alcohol withdrawal neurology was consulted as there is a concern of primary seizure disorder. They're recommending Keppra and patient underwent the EEG results of which are showing normal awake pattern with no epileptiform activity.however patient got intubated in the ICU for protecting airway review of systems: Not applicable as patient is intubated Active Medications Generic Name Dose Route Start Last Admin Trade Name Freq PRN Reason Stop Dose Admin Albuterol Sulfate 2.5 mg 11/11/19 16:15 Ventolin Nebulized INHALATION RT-Q8H PRN Shortness Of Breath Chlordiazepoxide HCl 25 mg 11/13/19 22:00 11/14/19 11:24 Librium PO Not Given Q6H [facility] Chlorhexidine Gluconate 15 ml 11/14/19 21:00 Peridex MUCOUS MEM BID [facility] Famotidine 20 mg 11/11/19 21:00 11/14/19 11:31 Pepcid PO 20 mg BID [facility] Administration Gabapentin 600 mg 11/11/19 18:00 11/14/19 13:14 Neurontin PO Not Given QID [facility] Heparin Sodium (Porcine) 5,000 unit 11/12/19 00:00 11/14/19 11:31 Heparin SQ 5,000 unit Q8HR [facility] Administration Sodium Chloride 1,000 mls @ 120 mls/hr 11/11/19 12:45 11/14/19 08:51 Saline 0.9% IV 120 mls/hr .Q8H20M [facility] Administration Propofol 1,000 mg/ IV Solution 100 mls @ 4.721 mls/hr 11/14/19 09:30 11/14/19 14:05 IV 20 mcg/kg/min .[id number] [facility] 9.443 mls/hr Administration Protocol 10 MCG/KG/MIN Dopamine HCl/Dextrose 800 mg/ 250 mls @ 4.426 mls/hr 11/14/19 12:45 11/14/19 13:14 IV Solution IV Not Given .Q24H [facility] Protocol 3 MCG/KG/MIN Levetiracetam 500 mg 11/12/19 21:00 11/14/19 11:31 Keppra PO 500 mg Q12HR [facility] Administration Lorazepam 1 mg 11/11/19 12:42 11/13/19 17:53 Ativan IV 1 mg Q2HR PRN Administration CIWA 8 or 9 Lorazepam 1 mg 11/11/19 12:42 11/14/19 04:18 Ativan IV 1 mg Q1HR PRN Administration CIWA 10 to 15 Meloxicam 7.5 mg 11/12/19 18:15 11/14/19 11:24 Mobic PO Not Given DAILY [facility] Naloxone HCl 0.2 mg 11/11/19 12:42 Narcan IV Q2M PRN Opioid Reversal Tamsulosin HCl 0.4 mg 11/11/19 21:00 11/14/19 11:30 Flomax PO 0.4 mg BID [facility] Administration Thiamine HCl 100 mg 11/11/19 17:30 11/14/19 11:31 Vitamin B-1 PO 100 mg BID-W/MEALS [facility] Administration Trazodone HCl 150 mg 11/13/19 21:00 11/13/19 21:16 Desyrel PO 150 mg HS [facility] Administration Objective - Vital Signs Vital signs: Vital Signs Temp 97.6 F 11/14/19 12:00 Pulse 55 L 11/14/19 14:00 Resp 15 11/14/19 14:00 BP 128/84 11/14/19 14:00 Pulse Ox 100 11/14/19 14:00 Intake & Output 11/13/19 11/14/19 11/14/19 18:59 06:59 18:59 Intake Total 561 090 1301.114 Output Total 1150 680 Balance 960 -200 418.114 Weight 78.69 kg Intake: Intake, IV Titration 784 919 8079.114 Amount Propofol 1,000 mg In 58.114 Empty Bag 1 bag @ 10 MCG/ KG/MIN 4.721 mls/hr IV . [id number] [facility] Rx#:[id number] Sodium Chloride 0.9% 1, 960 360 960 000 ml @ 120 mls/hr IV . Q8H20M [facility] Rx#:[id number] Oral 590 Tube Feeding 50 Other 30 Output: Urine 1150 680 Other: Voiding Method Indwelling Catheter # Voids 1 2 - Exam -GENERAL: The patient is intubated and sedated HEENT: Pupils are round and equally reacting to light. EOMI. No scleral icterus. No conjunctival pallor. Normocephalic, atraumatic. No pharyngeal erythema. No thyromegaly. CARDIOVASCULAR: S1 and S2 present. No murmurs, rubs, or gallops. PULMONARY: Chest is clear to auscultation, no wheezing or crackles. ABDOMEN: Soft, nontender, nondistended, normoactive bowel sounds. No palpable organomegaly. MUSCULOSKELETAL: No joint swelling or deformity. EXTREMITIES: No cyanosis, clubbing, or pedal edema. NEUROLOGICAL: Gross neurological examination did not reveal any focal deficits. SKIN: No rashes. no petechiae. - Labs CBC & Chem 7: 11/14/19 06:00 11/14/19 04:57 Labs: Abnormal Lab Results - Last 24 Hours (Table) 11/13/19 11/13/19 11/14/19 Range/Units 23:31 23:48 04:57 RBC (4.30-5.90) m/uL Hgb (13.0-17.5) gm/dL Hct (39.0-53.0) % RDW (11.5-15.5) % ABG pCO2 (35-45) mmHg ABG pO2 (83-108) mmHg ABG HCO3 (21-25) mmol/L ABG Total CO2 (19-24) mmol/L ABG O2 Saturation (94-97) % Chloride 108 H (98-107) mmol/L Glucose 108 H 102 H (74-99) mg/dL POC Glucose (mg/dL) 121 H (75-99) mg/dL 11/14/19 11/14/19 Range/Units 06:00 10:08 RBC 3.58 L (4.30-5.90) m/uL Hgb 11.5 L (13.0-17.5) gm/dL Hct 34.2 L (39.0-53.0) % RDW 16.3 H (11.5-15.5) % ABG pCO2 47 H (35-45) mmHg ABG pO2 266 H (83-108) mmHg ABG HCO3 28 H (21-25) mmol/L ABG Total CO2 30 H (19-24) mmol/L ABG O2 Saturation 99.6 H (94-97) % Chloride (98-107) mmol/L Glucose (74-99) mg/dL POC Glucose (mg/dL) (75-99) mg/dL Assessment and Plan Assessment: Alcohol withdrawal with delirium tremens Seizure on presentation suspicious for withdrawal seizure. Primary incisional also suspected but EEG was negative Nicotine dependence History of anxiety and depression Plan: this is a pleasant 59 years old male who presents with seizure and alcohol withdrawal. He is currently intubated. His vent management as per pulmonar y/critical care team. Continue with CIWA protocol, continue with antiacids and IV fluids. Continue with thiamine. Continue with Keppra as per neurologist recommendations Labs and medication were reviewed.. Continue same treatment. Continue with symptomatic treatment. Resume home medication. Monitor lytes and vitals. DVT and GI prophylaxis. Further recommendations of the clinical course of the patient DVT prophylaxis: Subcutaneous heparin GI Prophylaxis: Pepcid Prognosis is guarded
[2019-11-14] MEDS ORDERED: hydrALAZINE HCL 20 MG/ML 1 ML VIAL IVP PRN (16:52)
[2019-11-14] MEDS: CHLORHEXIDINE GLUCONATE 15 ML CUP MUCOUS MEM SCH (21:58)
[2019-11-14] MEDS: traZODone HCL 50 MG TAB PO SCH (22:11)
[2019-11-15] MEDS: HEPARIN SODIUM,PORCINE 5,000 UNIT/ML 1 ML VIAL SQ SCH ×3 (00:34→17:03)
[2019-11-15] MEDS: SODIUM CHLORIDE 0.9% 1,000 ML IV SCH ×3 (00:37→17:03)
[2019-11-15] MEDS: PROPOFOL 1,000 MG in EMPTY BAG 1 BAG IV SCH ×3 (00:40→17:09)
[2019-11-15] MEDS: chlordiazePOXIDE 25 MG CAP PO SCH (04:42)
[2019-11-15 05:05] LABS: Anisocytosis Slight; Basophils % (A) 0 %; Eosinophils # (A) 0.5 k/uL (0-0.7); Eosinophils % (A) 9 %; HCT 35.7 % (39.0-53.0); HGB 11.3 gm/dL (13.0-17.5); Lymphocytes # (A) 1.2 k/uL (1.0-4.8); Lymphocytes % (A) 22 %; MCH 30.9 pg (25.0-35.0); MCHC 31.6 g/dL (31.0-37.0); MCV 97.8 fL (80.0-100.0); Macrocytosis Slight; Mean Platelet Volume 7.2; Monocytes # (A) 0.4 k/uL (0-1.0); Monocytes % (A) 7 %; Neutrophils # (A) 3.2 k/uL (1.3-7.7); Neutrophils % (A) 59 %; Platelet Count 199 k/uL (150-450); RBC 3.65 m/uL (4.30-5.90); RDW 16.6 % (11.5-15.5); WBC 5.4 k/uL (3.8-10.6)
[2019-11-15 05:20] LABS: African American GFR (CKD) >90 (>60 ml/min/1.73 sqM); Anion Gap 5 mmol/L; Blood Urea Nitrogen 12 mg/dL (9-20); Calcium 8.9 mg/dL (8.4-10.2); Carbon Dioxide 24 mmol/L (22-30); Chloride 112 mmol/L (98-107); Glucose 101 mg/dL (74-99); Magnesium 1.4 mg/dL (1.6-2.3); Non-African American GFR(CKD) >90 (>60 ml/min/1.73 sqM); Potassium 3.8 mmol/L (3.5-5.1); Sodium 141 mmol/L (137-145)
[2019-11-15] MEDS ORDERED: Magnesium Replacement Protocol 1 EACH MISC MISCELLANE PRN (06:14)
[2019-11-15] MEDS: MAGNESIUM SULFATE-D5W PMX 1 GM in DEXTROSE/WATER 1 100ML.BAG IVPB SCH ×3 (07:06→09:27)
--- NOTE | 2019-11-15 07:33 | XR ---
EXAMINATION TYPE: XR chest 1V portable DATE OF EXAM: 11/15/2019 COMPARISON: 11/14/2019 HISTORY: Tube placement TECHNIQUE: Single frontal view of the chest is obtained. FINDINGS: There is endotracheal tube with tip just below inferior clavicular margin approximately 5 cm above luisa. There is orogastric tube with tip at level of diaphragmatic hiatus. Subsegmental raisa nges are seen in the basis. Cardiac silhouette size appears within normal limits. Osseous structures are intact. Chronic deformity of the right clavicle and right rib cage noted suggestive of remote tra max. IMPRESSION: 1. Subsegmental changes at the lung bases most typical of atelectasis correlate clinically to exclude .
[2019-11-15 07:48] LABS: ABG Base Excess 0.4 mmol/L; ABG HCO3 26 mmol/L (21-25); ABG Oxygen Saturation 96.7 % (94-97); ABG PCO2 45 mmHg (35-45); ABG PH 7.37 (7.35-7.45); ABG PO2 88 mmHg (83-108); ABG TCO2 27 mmol/L (19-24); Allen Test Performed? Yes
[2019-11-15] MEDS: THIAMINE 100 MG TAB PO SCH ×2 (09:22→17:03)
[2019-11-15] MEDS: GABAPENTIN 300 MG CAP PO SCH ×3 (09:22→21:25)
[2019-11-15] MEDS: FAMOTIDINE 20 MG TAB PO SCH ×2 (09:22→21:25)
[2019-11-15] MEDS: CHLORHEXIDINE GLUCONATE 15 ML CUP MUCOUS MEM SCH ×2 (09:22→21:24)
[2019-11-15] MEDS: TAMSULOSIN 0.4 MG CAP.ER.24H PO SCH ×2 (09:23→21:24)
[2019-11-15] MEDS: levETIRAcetam 500 MG TAB PO SCH ×2 (09:23→21:25)
--- NOTE | 2019-11-15 11:54 | P.PN ---
Subjective Progress Note Date: 11/15/19 Principal diagnosis: Acute delirium tremens, acute alcohol withdrawal This is a 59-year-old white male with history of alcoholism, since he was 25 years old. Patient lives in a three-quarter house. And supposedly has been sober for the last 90 days. Few days prior to admission, his daughter was involved in a motor vehicle accident, patient was stressed out, and he started d rinking again on the average of fifth of vodka daily for the last 3 days prior to admission. He claimed that he had a seizure, fell backwards, did not bite his tongue, and did not lose control of urine. Patient is known to have history of seizure disorder and has been on Keppra. In the ER, patient was shaking continuously, extremely tremulous, and he had a very sketchy poor history. Patient was admitted and his alcohol level at the time was 103. Drug screen was negative. Labs were basically unremarkable, and he had an EEG on the day of admission which was basically normal. Patient was managed by the admitting physician for his alcohol withdrawal, and last night patient was enough for point leather restraints, and he was extremely agitated, he had an extremely high CIWA score. Patient was transferred to the ICU, and I have recommended intubation . However patient apparently calm down with medications in the ICU until early this morning he was extremely agitated, and the nurse taking care of the patient was concerned about patient not able to protect his airways. Then I recommended immediate intubation and placement on mechanical ventilation. I saw the patient in the ICU on mechanical ventilation, he is now on assist control mode of mechanical ventilation, rate is 14 tidal volume is 500 FiO2 down to 35% and PEEP of 5. Patient is on propofol at 30 mcg/kg/m, and he is on IV fluid at 1 20 mL per hour. Hemodynamically stable, he has sinus bradycardia, but no hemodynamic instability. Chest x-ray post intubation showed no suspicious process. Reevaluated today on 11/15/2019, patient remains in the ICU, intubated, and mechanically ventilated. His ventilator settings are assist control rate of 14, tidal volume is 500, FiO2 is 40%, PEEP is 5. Remains on propofol at 35 mcg/kg/m, not requiring any pressors, easily arousable when sedation is decreased. Hemodynamically stable. Chest x-ray showed mostly bibasilar atelectasis, no clear-cut evidence of pneumonia. ABG showed a pO2 of 88 pCO2 of 45 pH of 7.37 CBC is relatively normal basic metabolic profile is normal renal profile is normal. Magnesium is low, being corrected as per protocol. Objective - Vital Signs Vital signs: Vital Signs Temp 97.4 F L 11/15/19 08:00 Pulse 77 11/15/19 11:00 Resp 15 11/15/19 11:00 BP 114/81 11/15/19 11:00 Pulse Ox 97 11/15/19 11:00 Intake & Output 11/14/19 11/15/19 11/15/19 18:59 06:59 18:59 Intake Total 1813.074 2391 1130 Output Total 955 895 290 Balance 776.146 715 840 Weight 78.69 kg 78.7 kg Intake: Intake, IV Titration 9713.571 6298 900 Amount Magnesium Sulfate-D5w Pmx 200 1 gm In Dextrose/Water 1 100ml.bag @ 100 mls/hr IVPB Q1H RHEA Rx#: [id number] Propofol 1,000 mg In 121.146 100 100 Empty Bag 1 bag @ 10 MCG/ KG/MIN 4.721 mls/hr IV . [id number] RHEA Rx#:[id number] Sodium Chloride 0.9% 1, 1440 1440 600 000 ml @ 120 mls/hr IV . Q8H20M RHEA Rx#:[id number] Tube Feeding 110 70 200 Other 60 30 Output: Urine 955 895 290 Other: Voiding Method Indwelling Catheter Indwelling Catheter Indwelling Catheter - Exam Physical Exam: Revealed a 59-year-old white male intubated, mechanically ventilated, in no distress. Head: Atraumatic, normocephalic. Endotracheal tube and orogastric tube are intact. The orogastric tube was advanced about 5 cm HEENT:[Neck is supple.] [No neck masses.] [No thyromegaly.] [No JVD.] PERRLA, EOMI, no icterus. Chest: [Clear throughout, no crackles, no rhonchi, no wheezes.] Symmetrical chest expansion. Cardiac Exam: [Normal S1 and S2, no S3 gallop, no murmur.] Abdomen: [Soft, nontender, no megaly, no rebound, no guarding, normal bowel sounds.] Extremities: [No clubbing, no edema, no cyanosis.] Good distal pulses bilaterally. Skin: No rashes. No petechiae Neurological Exam: Easily arousable upon deep painful stimuli, but gets extremely agitated and restless. Psychiatric: Could not be performed. Lymphatics: No lymphadenopathy. - Labs CBC & Chem 7: 11/15/19 04:33 11/15/19 04:33 Labs: Abnormal Lab Results - Last 24 Hours (Table) 11/14/19 11/15/19 11/15/19 Range/Units 10:08 04:33 04:33 RBC 3.65 L (4.30-5.90) m/uL Hgb 11.3 L (13.0-17.5) gm/dL Hct 35.7 L (39.0-53.0) % RDW 16.6 H (11.5-15.5) % ABG pCO2 47 H (35-45) mmHg ABG pO2 266 H (83-108) mmHg ABG HCO3 28 H (21-25) mmol/L ABG Total CO2 30 H (19-24) mmol/L ABG O2 Saturation 99.6 H (94-97) % Chloride 112 H (98-107) mmol/L Creatinine 0.64 L (0.66-1.25) mg/dL Glucose 101 H (74-99) mg/dL Magnesium 1.4 L (1.6-2.3) mg/dL 11/15/19 Range/Units 07:40 RBC (4.30-5.90) m/uL Hgb (13.0-17.5) gm/dL Hct (39.0-53.0) % RDW (11.5-15.5) % ABG pCO2 (35-45) mmHg ABG pO2 (83-108) mmHg ABG HCO3 26 H (21-25) mmol/L ABG Total CO2 27 H (19-24) mmol/L ABG O2 Saturation (94-97) % Chloride (98-107) mmol/L Creatinine (0.66-1.25) mg/dL Glucose (74-99) mg/dL Magnesium (1.6-2.3) mg/dL Assessment and Plan Assessment: Impression: 1: Acute alcohol withdrawal, acute delirium tremens. 2: Possible seizure on presentation, patient is known to have history of seizures. May or may not be related to alcohol. This was not a witnessed seiz ure. 3: History of alcoholism. 4: Acute alcohol intoxication upon presentation to the ER. 5: History of depression. 6: Acute respiratory failure secondary to delirium tremens, patient was mostly intubated to protect his airways as noted below. He did not develop any hypoxia or hypercapnia. Recommendation: Patient was intubated mostly to protect his airways, and to protect from self- harm. Continue ventilatory support. ABG and ventilator settings were addressed accordingly. Continue nutritional support, via enteral feeding.. Continue GI and DVT prophylaxis. Continue propofol and thiamine. Continue seizure meds as per neurology on the case. Discontinued and adjusted some of his home meds including gabapentin, and trazodone, We'll continue to follow in the ICU, no plans to wean or extubate today or in the next 24 hours. Patient will need further detoxification before he can safely get extubated from mechanical ventilation. Critical care time is 33 minutes Time with Patient: Greater than 30
--- NOTE | 2019-11-15 15:14 | P.PN ---
Subjective anxiety and depression and cigarette smoker. He presents with signs symptoms of alcohol withdrawal and seizure. Patient was admitted for seizures and alcohol withdrawal neurology was consulted as there is a concern of primary seizure disorder. They're recommending Kerejira and patient underwent the EEG results of which are showing normal awake pattern with no epileptiform activity.however patient got intubated in the ICU for protecting airway 11/15/2019 Patient remains in the ICU intubated and on mechanical ventilation managed by the critical care team. NG tube is in place and tube feeding as started. Vitas looks stable, heart rate is at 55. CBC including the biopsies stable. BMP is normal change. Low magnesium was 1.4 is been replaced. Chest x-ray suspected atelectasis rather than pneumonia. review of systems: Not applicable as patient is intubated Active Medications Generic Name Dose Route Start Last Admin Trade Name Freq PRN Reason Stop Dose Admin Albuterol Sulfate 2.5 mg 11/11/19 16:15 11/15/19 11:48 Ventolin Nebulized INHALATION 2.5 mg RT-Q8H PRN Administration Shortness Of Breath Chlorhexidine Gluconate 15 ml 11/14/19 21:00 11/15/19 09:22 Peridex MUCOUS MEM 15 ml BID RHEA Administration Famotidine 20 mg 11/11/19 21:00 11/15/19 09:22 Pepcid PO 20 mg BID RHEA Administration Gabapentin 300 mg 11/15/19 09:00 11/15/19 09:22 Neurontin PO 300 mg TID RHEA Administration Heparin Sodium (Porcine) 5,000 unit 11/12/19 00:00 11/15/19 09:22 Heparin SQ 5,000 unit Q8HR RHEA Administration Hydralazine HCl 10 mg 11/14/19 16:52 11/14/19 17:15 Apresoline IVP 10 mg Q4HR PRN Administration Blood Pressure - High Sodium Chloride 1,000 mls @ 120 mls/hr 11/11/19 12:45 11/15/19 09:22 Saline 0.9% IV 120 mls/hr .Q8H20M RHEA Administration Propofol 1,000 mg/ IV Solution 100 mls @ 4.721 mls/hr 11/14/19 09:30 11/15/19 13:57 IV 35 mcg/kg/min .[id number] RHEA 16.525 mls/hr Administration Protocol 10 MCG/KG/MIN Levetiracetam 500 mg 11/12/19 21:00 11/15/19 09:23 Keppra PO 500 mg Q12HR RHEA Administration Miscellaneous Information 1 each 11/15/19 06:14 Magnesium Per Protocol MISCELLANE DAILY PRN Per Protocol Protocol Naloxone HCl 0.2 mg 11/11/19 12:42 Narcan IV Q2M PRN Opioid Reversal Tamsulosin HCl 0.4 mg 11/11/19 21:00 11/15/19 09:23 Flomax PO 0.4 mg BID RHEA Administration Thiamine HCl 100 mg 11/11/19 17:30 11/15/19 09:22 Vitamin B-1 PO 100 mg BID-W/MEALS RHEA Administration Objective - Vital Signs Vital signs: Vital Signs Temp 97.4 F L 11/15/19 12:00 Pulse 55 L 11/15/19 14:00 Resp 14 11/15/19 14:00 BP 125/71 11/15/19 14:00 Pulse Ox 98 11/15/19 14:00 Intake & Output 11/14/19 11/15/19 11/15/19 18:59 06:59 18:59 Intake Total 5377.153 9621 1680 Output Total 955 895 730 Balance 776.146 715 950 Weight 78.69 kg 78.7 kg Intake: Intake, IV Titration 1650.077 6884 1260 Amount Magnesium Sulfate-D5w Pmx 200 1 gm In Dextrose/Water 1 100ml.bag @ 100 mls/hr IVPB Q1H RHEA Rx#: [id number] Propofol 1,000 mg In 121.146 100 100 Empty Bag 1 bag @ 10 MCG/ KG/MIN 4.721 mls/hr IV . [id number] RHEA Rx#:[id number] Sodium Chloride 0.9% 1, 1440 1440 960 000 ml @ 120 mls/hr IV . Q8H20M RHEA Rx#:[id number] Tube Feeding 110 70 360 Other 60 60 Output: Urine 955 895 730 Other: Voiding Method Indwelling Catheter Indwelling Catheter Indwelling Catheter - Exam -GENERAL: The patient is intubated and sedated HEENT: Pupils are round and equally reacting to light. EOMI. No scleral icterus. No conjunctival pallor. Normocephalic, atraumatic. No pharyngeal erythema. No thyromegaly. CARDIOVASCULAR: S1 and S2 present. No murmurs, rubs, or gallops. PULMONARY: Chest is clear to auscultation, no wheezing or crackles. ABDOMEN: Soft, nontender, nondistended, normoactive bowel sounds. No palpable organomegaly. MUSCULOSKELETAL: No joint swelling or deformity. EXTREMITIES: No cyanosis, clubbing, or pedal edema. NEUROLOGICAL: Gross neurological examination did not reveal any focal deficits. SKIN: No rashes. no petechiae. - Labs CBC & Chem 7: 11/15/19 04:33 11/15/19 04:33 Labs: Abnormal Lab Results - Last 24 Hours (Table) 11/15/19 11/15/19 11/15/19 Range/Units 04:33 04:33 07:40 RBC 3.65 L (4.30-5.90) m/uL Hgb 11.3 L (13.0-17.5) gm/dL Hct 35.7 L (39.0-53.0) % RDW 16.6 H (11.5-15.5) % ABG HCO3 26 H (21-25) mmol/L ABG Total CO2 27 H (19-24) mmol/L Chloride 112 H (98-107) mmol/L Creatinine 0.64 L (0.66-1.25) mg/dL Glucose 101 H (74-99) mg/dL Magnesium 1.4 L (1.6-2.3) mg/dL Microbiology - Last 24 Hours (Table) 11/15/19 00:30 Sputum Culture - Preliminary Sputum Assessment and Plan Assessment: Alcohol withdrawal with delirium tremens Seizure on presentation suspicious for withdrawal seizure. Primary incisional also suspected but EEG was negative Status post intubation to protect airway. Nicotine dependence History of anxiety and depression Plan: this is a pleasant 59 years old male who presents with seizure and alcohol withdrawal. He is currently intubated. His vent management as per pulmonary/critical care team. Possible intubation Continue with CIWA protocol, continue with antiacids and IV fluids. Continue with thiamine. Continue with Keppra as per neurologist recommendations Labs and medication were reviewed.. Continue same treatment. Continue with symptomatic treatment. Resume home medication. Monitor lytes and vitals. DVT and GI prophylaxis. Further recommendations of the clinical course of the patient DVT prophylaxis: Subcutaneous heparin GI Prophylaxis: Pepcid Prognosis is guarded
[2019-11-16] MEDS: HEPARIN SODIUM,PORCINE 5,000 UNIT/ML 1 ML VIAL SQ SCH ×4 (00:07→23:47)
[2019-11-16] MEDS: SODIUM CHLORIDE 0.9% 1,000 ML IV SCH ×3 (02:00→20:42)
[2019-11-16 05:00] LABS: ABG Base Excess 2.6 mmol/L; ABG HCO3 27 mmol/L (21-25); ABG PCO2 42 mmHg (35-45); ABG PH 7.42 (7.35-7.45); ABG PO2 123 mmHg (83-108); ABG TCO2 28 mmol/L (19-24); Allen Test Performed? Yes
[2019-11-16 05:29] LABS: Anisocytosis Slight; Basophils % (A) 0 %; Eosinophils # (A) 0.5 k/uL (0-0.7); Eosinophils % (A) 7 %; HCT 36.6 % (39.0-53.0); HGB 11.9 gm/dL (13.0-17.5); Lymphocytes # (A) 1.3 k/uL (1.0-4.8); Lymphocytes % (A) 20 %; MCHC 32.5 g/dL (31.0-37.0); MCV 98.6 fL (80.0-100.0); Macrocytosis Slight; Mean Platelet Volume 7.5; Monocytes # (A) 0.6 k/uL (0-1.0); Monocytes % (A) 9 %; Neutrophils # (A) 4.1 k/uL (1.3-7.7); Neutrophils % (A) 60 %; Platelet Count 193 k/uL (150-450); RBC 3.71 m/uL (4.30-5.90); RDW 16.9 % (11.5-15.5); WBC 6.8 k/uL (3.8-10.6)
[2019-11-16] MEDS: THIAMINE 100 MG TAB PO SCH ×2 (07:15→17:02)
[2019-11-16 07:29] LABS: African American GFR (CKD) >90 (>60 ml/min/1.73 sqM); Anion Gap 8 mmol/L; Blood Urea Nitrogen 13 mg/dL (9-20); Calcium 8.9 mg/dL (8.4-10.2); Carbon Dioxide 24 mmol/L (22-30); Chloride 112 mmol/L (98-107); Glucose 78 mg/dL (74-99); Magnesium 1.9 mg/dL (1.6-2.3); Non-African American GFR(CKD) >90 (>60 ml/min/1.73 sqM); Potassium 4.1 mmol/L (3.5-5.1); Sodium 144 mmol/L (137-145)
--- NOTE | 2019-11-16 07:34 | XR ---
EXAMINATION TYPE: XR chest 1V portable DATE OF EXAM: 11/16/2019 CLINICAL HISTORY: Difficulty breathing progress study. TECHNIQUE: Single AP portable semiupright view of the chest is obtained. COMPARISON: Chest x-ray from one day earlier and older studies. FINDINGS: Stable endotracheal and orogastric tubes. Patchy bibasilar opacities remain present. No ne w focal airspace opacity, pleural effusion, or pneumothorax is seen bilaterally. Cardiac silhouette s ize upper limits of normal. Osseous structures are intact. IMPRESSION: Overall stable findings, patchy bibasilar scarring and/or atelectasis. No new suspiciou s focal infiltrate.
[2019-11-16] MEDS: CHLORHEXIDINE GLUCONATE 15 ML CUP MUCOUS MEM SCH ×2 (08:51→20:43)
[2019-11-16] MEDS: FAMOTIDINE 20 MG TAB PO SCH ×2 (08:51→20:43)
[2019-11-16] MEDS: levETIRAcetam 500 MG TAB PO SCH ×2 (08:51→20:43)
[2019-11-16] MEDS: TAMSULOSIN 0.4 MG CAP.ER.24H PO SCH ×2 (08:51→20:50)
[2019-11-16] MEDS: GABAPENTIN 300 MG CAP PO SCH ×3 (08:52→20:51)
[2019-11-16] MEDS ORDERED: LORazepam 2 MG/ML INJ IV PRN ×2 (09:38)
--- NOTE | 2019-11-16 11:18 | PN ---
PROGRESS NOTE PULMONARY/CRITICAL CARE PROGRESS NOTE: DATE OF SERVICE: November 16, 2019 CRITICAL CARE TIME: 34 minutes This is a 59-year-old male who was admitted back on November 11 for alcohol induced alcohol withdrawal syndrome. The patient was intubated on the for agitation and confusion and a seizure. Currently, the patient remains on mechanical ventilator. He becomes very agitated and restless when sedation is held. Anyway, he may be ready for extubation. He is currently on the volume assist-control mode rate of 14, tidal volume 500, FiO2 of 40%, PEEP of 5. Blood gases show pO2 of 123, pCO2 of 42, and pH 7.42. These gases are consistent with hyperoxia and normal acid-base disturbance and normal acid-base status. The FiO2 will be dropped from 40% to 30%. In addition, the patient may be able to be extubated. We will do a daily interruption of sedation. We will do a spontaneous breathing trial and if patient has got good weaning parameters and a cuff leak, he may be extubated. Currently, he is on propofol 45 mcg/kg per minute, a 0.9 IV at 110 mL an hour, Vital high-protein at 45 with a goal of 45 mL an hour. He appears to be very stable. According to the nurses, he was stable overnight. PHYSICAL EXAMINATION: VITAL SIGNS: Currently vital signs are reviewed. Temperature 97.5, heart rate 82, respiratory rate 15, blood pressure 141/91, mean 107, saturations are 97%. GENERAL: Appears in no acute distress. HEENT: Examination is grossly unremarkable. There is an orally placed endotracheal tube and NG tube. NECK: Supple. Full range of motion. No adenopathy or thyromegaly. Neck veins are flat. CARDIOVASCULAR: Examination reveals regular rhythm and rate. Heart rate 82 beats per minute. S1, S2 normal. Heart sounds are distant. LUNGS: Reveal a few scattered rhonchi. No wheezes or crackles. For the most part, lung sounds are relatively clear. ABDOMEN: Soft. Bowel sounds are heard. EXTREMITIES: Are intact. No cyanosis, clubbing, or edema. SKIN: Without rash. NEUROLOGIC: Examination is difficult to assess given the fact he is on propofol at 45 mcg/kg per minute. Microbiologic studies are thus far all negative. LABS: Labs are reviewed. White count 6.8, hemoglobin 11.9, hematocrit 36.6, platelet count 193,000. Blood gases have already been noted. Sodium 144, potassium 4.1, chloride 112, CO2 of 24. Anion gap 8. BUN and creatinine were 13 and 0.71. Chest x-ray shows relatively clear lung wolff. There may be some minimal atelectasis of the right lung base. Endotracheal tube is high in the trachea. MEDICATIONS: Medications are currently reviewed. In addition to the propofol, saline IV, and Vital high-protein, the patient is on updrafts with albuterol and Atrovent. The patient is also on chlorhexidine, Pepcid, gabapentin, heparin subcu, hydralazine p.r.n., Keppra, Ativan p.r.n., magnesium replacement, Narcan, Flomax, and thiamine. ASSESSMENT: 1. Acute respiratory failure secondary to mental status changes, agitation and seizure disorder caused by alcohol withdrawal syndrome, with routine ventilator management. 2. Acute alcohol withdrawal with acute delirium tremens. 3. Seizure, alcoholic induced seizure initially on presentation. 4. History of chronic alcohol abuse. 5. Acute alcohol intoxication upon presentation to the ER. 6. History of depression. PLAN: The patient will be given a daily interruption of sedation. If his weaning parameters were good and he has a cuff leak, we may consider extubation. Additional recommendations and suggestions are forthcoming. We will hold his tube feeds. Obviously we will hold his propofol. Additional recommendations and suggestions are forthcoming. Medications are reviewed. His prognosis is guarded. We will continue to follow closely. We will continue to observe him in the ICU for a period of time to make sure he does not express any additional signs or symptoms of alcohol withdrawal syndrome. CRITICAL CARE TIME: 34 minutes. MMGRACEL / IJN: [id number] /
[2019-11-16] MEDS: LORazepam 2 MG/ML INJ IV PRN (11:42)
[2019-11-16] MEDS: IPRATROPIUM-ALBUTEROL 3 ML NEB INHALATION SCH ×3 (12:48→21:36)
--- NOTE | 2019-11-16 17:34 | P.PN ---
Subjective anxiety and depression and cigarette smoker. He presents with signs symptoms of alcohol withdrawal and seizure. Patient was admitted for seizures and alcohol withdrawal neurology was consulted as there is a concern of primary seizure disorder. They're recommending Keppra and patient underwent the EEG results of which are showing normal awake pattern with no epileptiform activity.however patient got intubated in the ICU for protecting airway 11/15/2019 Patient remains in the ICU intubated and on mechanical ventilation managed by the critical care team. NG tube is in place and tube feeding as started. Vitas looks stable, heart rate is at 55. CBC including the biopsies stable. BMP is normal change. Low magnesium was 1.4 is been replaced. Chest x-ray suspected atelectasis rather than pneumonia. 11/16/2019 Patient remains in the ICU intubated and sedated. Heart rate is about between 50s to 100. History And 26, blood pressure 161/82. WBC is 6.8, hemoglobin 11.9. BMP is unremarkable. Chest x-ray: Stable findings, atelectasis. Patient remains on CIWA protocol. Eventually at 10:00 in the morning patient was extubated however patient is confused and open eyes to verbal stimuli's however he does not follow instructions appropriately review of systems: Not applicable as patient is intubated Active Medications Generic Name Dose Route Start Last Admin Trade Name Freq PRN Reason Stop Dose Admin Albuterol/Ipratropium 3 ml 11/16/19 12:00 11/16/19 16:39 Duoneb 0.5 Mg-3 Mg/3 Ml Soln INHALATION Not Given RT-QID RHEA Chlorhexidine Gluconate 15 ml 11/14/19 21:00 11/16/19 08:51 Peridex MUCOUS MEM 15 ml BID RHEA Administration Famotidine 20 mg 11/11/19 21:00 11/16/19 08:51 Pepcid PO 20 mg BID RHEA Administration Gabapentin 300 mg 11/15/19 09:00 11/16/19 17:02 Neurontin PO 300 mg TID RHEA Administration Heparin Sodium (Porcine) 5,000 unit 11/12/19 00:00 11/16/19 17:02 Heparin SQ 5,000 unit Q8HR RHEA Administration Hydralazine HCl 10 mg 11/14/19 16:52 11/14/19 17:15 Apresoline IVP 10 mg Q4HR PRN Administration Blood Pressure - High Sodium Chloride 1,000 mls @ 120 mls/hr 11/11/19 12:45 11/16/19 17:04 Saline 0.9% IV 120 mls/hr .Q8H20M RHEA Administration Propofol 1,000 mg/ IV Solution 100 mls @ 4.721 mls/hr 11/14/19 09:30 11/16/19 09:30 IV Infused .[id number] RHEA Titration Protocol 10 MCG/KG/MIN Levetiracetam 500 mg 11/12/19 21:00 11/16/19 08:51 Keppra PO 500 mg Q12HR RHEA Administration Lorazepam 1 mg 11/16/19 09:38 11/16/19 11:42 Ativan IV 1 mg Q2HR PRN Administration CIWA 8 or 9 Lorazepam 1 mg 11/16/19 09:38 Ativan IV Q1HR PRN CIWA 10 to 15 Lorazepam 2 mg 11/16/19 09:38 Ativan IV 11/18/19 09:38 Q10M PRN CIWA 16 or higher Miscellaneous Information 1 each 11/15/19 06:14 Magnesium Per Protocol MISCELLANE DAILY PRN Per Protocol Protocol Naloxone HCl 0.2 mg 11/11/19 12:42 Narcan IV Q2M PRN Opioid Reversal Tamsulosin HCl 0.4 mg 11/11/19 21:00 11/16/19 08:51 Flomax PO 0.4 mg BID RHEA Administration Thiamine HCl 100 mg 11/11/19 17:30 11/16/19 17:02 Vitamin B-1 PO 100 mg BID-W/MEALS RHEA Administration Objective - Vital Signs Vital signs: Vital Signs Temp 97.8 F 11/16/19 12:00 Pulse 111 H 11/16/19 15:00 Resp 26 H 11/16/19 15:00 BP 161/82 11/16/19 15:00 Pulse Ox 92 L 11/16/19 15:00 Intake & Output 11/15/19 11/16/19 11/16/19 18:59 06:59 18:59 Intake Total 2495.634 1665 1267.246 Output Total 1030 1125 1870 Balance 1465.634 540 -602.754 Weight 78.7 kg 80.6 kg Intake: IV 960 Sodium Chloride 0.9% 1, 960 000 ml @ 120 mls/hr IV . Q8H20M RHEA Rx#:[id number] Intake, IV Titration 8897.637 6055 217.246 Amount Magnesium Sulfate-D5w Pmx 200 1 gm In Dextrose/Water 1 100ml.bag @ 100 mls/hr IVPB Q1H RHEA Rx#: [id number] Propofol 1,000 mg In 155.634 97.246 Empty Bag 1 bag @ 10 MCG/ KG/MIN 4.721 mls/hr IV . [id number] RHEA Rx#:[id number] Sodium Chloride 0.9% 1, 1440 1440 120 000 ml @ 120 mls/hr IV . Q8H20M RHEA Rx#:[id number] Tube Feeding 610 225 90 Other 90 Output: Urine 1030 1125 1870 Other: Voiding Method Indwelling Catheter Indwelling Catheter Indwelling Catheter - Exam -GENERAL: The patient is status post extubation and his confused HEENT: Pupils are round and equally reacting to light. EOMI. No scleral icterus. No conjunctival pallor. Normocephalic, atraumatic. No pharyngeal erythema. No thyromegaly. CARDIOVASCULAR: S1 and S2 present. No murmurs, rubs, or gallops. PULMONARY: Chest is clear to auscultation, no wheezing or crackles. ABDOMEN: Soft, nontender, nondistended, normoactive bowel sounds. No palpable organomegaly. MUSCULOSKELETAL: No joint swelling or deformity. EXTREMITIES: No cyanosis, clubbing, or pedal edema. NEUROLOGICAL: Gross neurological examination did not reveal any focal deficits. SKIN: No rashes. no petechiae. - Labs CBC & Chem 7: 11/16/19 04:43 11/16/19 04:43 Labs: Abnormal Lab Results - Last 24 Hours (Table) 11/16/19 11/16/19 11/16/19 Range/Units 04:43 04:43 04:58 RBC 3.71 L (4.30-5.90) m/uL Hgb 11.9 L (13.0-17.5) gm/dL Hct 36.6 L (39.0-53.0) % RDW 16.9 H (11.5-15.5) % ABG pO2 123 H (83-108) mmHg ABG HCO3 27 H (21-25) mmol/L ABG Total CO2 28 H (19-24) mmol/L ABG O2 Saturation 99.0 H (94-97) % Chloride 112 H (98-107) mmol/L Microbiology - Last 24 Hours (Table) 11/15/19 00:30 Gram Stain - Preliminary Sputum Sputum Culture - Preliminary Assessment and Plan Assessment: Alcohol withdrawal with delirium tremens Seizure on presentation suspicious for withdrawal seizure. Primary incisional also suspected but EEG was negative Status post intubation to protect airway. He got extubated on 11/16/2019 Nicotine dependence History of anxiety and depression Plan: this is a pleasant 59 years old male who presents with seizure and alcohol withdrawal. His vent management as per pulmonary/critical care team. Possible intubation Continue with CIWA protocol, continue with antiacids and IV fluids. Continue with thiamine. Continue with Keppra as per neurologist r ecommendations Labs and medication were reviewed.. Continue same treatment. Continue with symptomatic treatment. Resume home medication. Monitor lytes and vitals. DVT and GI prophylaxis. Further recommendations of the clinical course of the patient DVT prophylaxis: Subcutaneous heparin GI Prophylaxis: Pepcid Prognosis is guarded
[2019-11-17] MEDS: SODIUM CHLORIDE 0.9% 1,000 ML IV SCH ×2 (00:25→12:00)
[2019-11-17 05:06] LABS: Anisocytosis Slight; HCT 32.2 % (39.0-53.0); MCV 96.9 fL (80.0-100.0); Mean Platelet Volume 7.8; Platelet Count 196 k/uL (150-450); RBC 3.33 m/uL (4.30-5.90); RDW 16.7 % (11.5-15.5); WBC 8.9 k/uL (3.8-10.6)
[2019-11-17 05:53] LABS: African American GFR (CKD) >90 (>60 ml/min/1.73 sqM); Anion Gap 5 mmol/L; Blood Urea Nitrogen 11 mg/dL (9-20); Calcium 8.7 mg/dL (8.4-10.2); Carbon Dioxide 24 mmol/L (22-30); Chloride 110 mmol/L (98-107); Glucose 75 mg/dL (74-99); Magnesium 1.3 mg/dL (1.6-2.3); Non-African American GFR(CKD) >90 (>60 ml/min/1.73 sqM); Potassium 3.7 mmol/L (3.5-5.1); Sodium 139 mmol/L (137-145)
[2019-11-17] MEDS: THIAMINE 100 MG TAB PO SCH ×2 (06:40→16:47)
--- NOTE | 2019-11-17 07:34 | XR ---
EXAMINATION TYPE: XR chest 1V portable DATE OF EXAM: 11/17/2019 CLINICAL HISTORY: Difficulty breathing progress study. TECHNIQUE: Single AP portable upright view of the chest is obtained. COMPARISON: Chest x-ray from one day earlier and older studies. FINDINGS: Interval extubation with removal of endotracheal and orogastric tubes. Some chronic parenc hymal change without suspicious new focal airspace opacity or pneumothorax seen bilaterally. Possible new small to tiny left pleural effusion as there is subtle blunting of left costophrenic angle. Avas cular necrosis with sclerosis and fracture deformity of left humeral head is noted. Overlying EKG doron ds are redemonstrated. IMPRESSION: Interval extubation. Possible new small to tiny left pleural effusion. No new focal infil trate.
[2019-11-17] MEDS: IPRATROPIUM-ALBUTEROL 3 ML NEB INHALATION SCH ×4 (09:01→19:43)
[2019-11-17] MEDS: HEPARIN SODIUM,PORCINE 5,000 UNIT/ML 1 ML VIAL SQ SCH ×3 (09:30→23:42)
[2019-11-17] MEDS: MAGNESIUM SULFATE-D5W PMX 1 GM in DEXTROSE/WATER 1 100ML.BAG IVPB SCH ×3 (09:30→13:00)
[2019-11-17] MEDS: GABAPENTIN 300 MG CAP PO SCH ×3 (09:30→21:48)
[2019-11-17] MEDS: FAMOTIDINE 20 MG TAB PO SCH ×2 (09:30→21:48)
[2019-11-17] MEDS: TAMSULOSIN 0.4 MG CAP.ER.24H PO SCH ×2 (09:30→21:48)
[2019-11-17] MEDS: levETIRAcetam 500 MG TAB PO SCH ×2 (09:31→21:48)
--- NOTE | 2019-11-17 09:35 | PN ---
PROGRESS NOTE PULMONARY/CRITICAL CARE PROGRESS NOTE: DATE OF SERVICE: November 17, 2019 This is a 59-year-old male who we seen yesterday. He was admitted back on November 11 for alcohol induced alcohol withdrawal syndrome. The patient was intubated on 14 of November for agitation and confusion with a seizure and inability to maintain an airway. The patient was seen yesterday here in the ICU. His arterial blood gases were excellent and we went ahead and gave him a daily interruption of sedation with a spontaneous breathing trial. The patient did well. He was extubated successfully yesterday on November 16. Currently, he goes between room air and 4 L nasal cannula. His IV is 0.9 at 100 mL an hour. I told the nurse that the IV could be pivel. In addition, his diet can be advanced. He could be transferred out to the general medical floor without telemetry. We can DC the Saavedra as well. He himself is doing very well. Yesterday, his weaning parameters were excellent. His RSBI was low and his cuff leak was positive. He is resting comfortably without complaints today. No additional seizures or any evidence of alcohol withdrawal syndrome. His vital signs have been stable. PHYSICAL EXAMINATION: VITAL SIGNS: Current vital signs include a temperature 98.2, heart rate 50, respiratory rate 15, blood pressure 127/67, mean 87 and saturations are 99% on 4 L. GENERAL: Appears in no acute distress. HEENT: Examination is grossly unremarkable. Mucous membranes are moist. Nasal O2 noted. NECK: Supple. Full range of motion. No adenopathy or thyromegaly. Neck veins are flat. CARDIOVASCULAR: Examination reveals regular rhythm and rate. Heart rate about 50 beats per minute. It is regular. S1, S2 normal. No murmur. LUNGS: Reveal clear breath sounds. No wheezes, rhonchi, or crackles. ABDOMEN: Soft. Bowel sounds are heard. No masses or tenderness. EXTREMITIES: Are intact. No cyanosis, clubbing, or edema. SKIN: Without rash. NEUROLOGIC: Examination is brief but nonfocal. Microbiologic studies are thus far negative. LABS: Labs are reviewed. White count 8.9, hemoglobin 11, hematocrit 32.2, platelet count 196,000. Sodium 139, potassium 3.7, chloride 110, CO2 of 24. Anion gap 5. BUN and creatinine were 11 and 0.78 respectively. Magnesium is a bit low at 1.3. The patient's chest x-ray post extubation shows it to be completely normal. Lung wolff are clear. MEDICATIONS: Medications are reviewed. ASSESSMENT: 1. Acute respiratory failure secondary to mental status changes, agitation, and seizure disorder as well as inability to protect the patient's airway, caused by alcohol withdrawal syndrome, with routine ventilator management. 2. Status post successful extubation on November 16, 2019. 3. Acute alcohol withdrawal with acute delirium tremens, improved. 4. Alcohol induced seizure activity, stable. 5. History of chronic alcohol abuse. 6. Acute alcohol intoxication upon presentation in the emergency room. 7. History of depression. PLAN: The patient's diet can be advanced. Saavedra catheter can be removed. The patient could be transferred out to the general medical floor with telemetry. His IV will be turned down to KVO or stopped altogether. His oxygen requirements ranged between no oxygen and 4 L depending on if he is sleeping or not. Additional recommendations and suggestions forthcoming. Prognosis is guarded. MMODL / IJN: [id number] /
[2019-11-17] MEDS: LORazepam 2 MG/ML INJ IV PRN ×3 (12:59→19:44)
--- NOTE | 2019-11-17 15:06 | P.PN ---
Subjective anxiety and depression and cigarette smoker. He presents with signs symptoms of alcohol withdrawal and seizure. Patient was admitted for seizures and alcohol withdrawal neurology was consulted as there is a concern of primary seizure disorder. They're recommending Keppra and patient underwent the EEG results of which are showing normal awake pattern with no epileptiform activity.however patient got intubated in the ICU for protecting airway 11/15/2019 Patient remains in the ICU intubated and on mechanical ventilation managed by the critical care team. NG tube is in place and tube feeding as started. Vitas looks stable, heart rate is at 55. CBC including the biopsies stable. BMP is normal change. Low magnesium was 1.4 is been replaced. Chest x-ray suspected atelectasis rather than pneumonia. 11/16/2019 Patient remains in the ICU intubated and sedated. Heart rate is about between 50s to 100. History And 26, blood pressure 161/82. WBC is 6.8, hemoglobin 11.9. BMP is unremarkable. Chest x-ray: Stable findings, atelectasis. Patient remains on CIWA protocol. Eventually at 10:00 in the morning patient was extubated however patient is confused and open eyes to verbal stimuli's however he does not follow instructions appropriately 11/17/2019 Patient in the ICU, his status post extubation yesterday. Yesterday he was co nfused however today he is awake. and alert and he knows his name, he knows in the hospital and he knows why he is in the hospital. However his sleepy, he does not want to participate much end encounter and conversation, however he was calm, and with appropriate behavior. Vital stable. Labs are stable. Chest x- ray: No infiltrates. He remains on CIWA protocol Review of systems CONSTITUTIONAL: No fever, no malaise, no fatigue. HEENT: No recent visual problems or hearing problems. Denied any sore throat. CARDIOVASCULAR: No orthopnea, PND, no palpitations, no syncope. PULMONARY: No shortness of breath, no cough, no hemoptysis. GASTROINTESTINAL: No diarrhea, no nausea, no vomiting, no abdominal pain. Normoactive bowel sounds. NEUROLOGICAL: No headaches, no weakness, no numbness. HEMATOLOGICAL: Denies any bleeding or petechiae. GENITOURINARY: Denies any burning micturition, frequency, or urgency. MUSCULOSKELETAL/RHEUMATOLOGICAL: Denies any joint pain, swelling, or any muscle pain. ENDOCRINE: Denies any polyuria or polydipsia. Active Medications Generic Name Dose Route Start Last Admin Trade Name Freq PRN Reason Stop Dose Admin Albuterol/Ipratropium 3 ml 11/16/19 12:00 11/17/19 11:20 Duoneb 0.5 Mg-3 Mg/3 Ml Soln INHALATION Not Given RT-QID RHEA Famotidine 20 mg 11/11/19 21:00 11/17/19 09:30 Pepcid PO 20 mg BID RHEA Administration Gabapentin 300 mg 11/15/19 09:00 11/17/19 09:30 Neurontin PO 300 mg TID RHEA Administration Heparin Sodium (Porcine) 5,000 unit 11/12/19 00:00 11/17/19 09:30 Heparin SQ 5,000 unit Q8HR RHEA Administration Hydralazine HCl 10 mg 11/14/19 16:52 11/14/19 17:15 Apresoline IVP 10 mg Q4HR PRN Administration Blood Pressure - High Sodium Chloride 1,000 mls @ 120 mls/hr 11/11/19 12:45 11/17/19 12:00 Saline 0.9% IV Not Given .Q8H20M RHEA Propofol 1,000 mg/ IV Solution 100 mls @ 4.721 mls/hr 11/14/19 09:30 11/16/19 09:30 IV Infused .[id number] RHEA Titration Protocol 10 MCG/KG/MIN Levetiracetam 500 mg 11/12/19 21:00 11/17/19 09:31 Keppra PO 500 mg Q12HR RHEA Administration Lorazepam 1 mg 11/16/19 09:38 11/17/19 12:59 Ativan IV 1 mg Q2HR PRN Administration CIWA 8 or 9 Lorazepam 1 mg 11/16/19 09:38 Ativan IV Q1HR PRN CIWA 10 to 15 Lorazepam 2 mg 11/16/19 09:38 11/17/19 04:39 Ativan IV 11/18/19 09:38 2 mg Q10M PRN Administration CIWA 16 or higher Miscellaneous Information 1 each 11/15/19 06:14 Magnesium Per Protocol MISCELLANE DAILY PRN Per Protocol Protocol Naloxone HCl 0.2 mg 11/11/19 12:42 Narcan IV Q2M PRN Opioid Reversal Tamsulosin HCl 0.4 mg 11/11/19 21:00 11/17/19 09:30 Flomax PO 0.4 mg BID RHEA Administration Thiamine HCl 100 mg 11/11/19 17:30 11/17/19 06:40 Vitamin B-1 PO 100 mg BID-W/MEALS RHEA Administration Objective - Vital Signs Vital signs: Vital Signs Temp 97.8 F 11/17/19 13:00 Pulse 56 L 11/17/19 13:00 Resp 16 11/17/19 13:00 BP 110/65 11/17/19 13:00 Pulse Ox 94 L 11/17/19 13:00 Intake & Output 11/16/19 11/17/19 11/17/19 18:59 06:59 18:59 Intake Total 7466.385 2975 Output Total 2320 1030 Balance -572.754 530 Weight 80.6 kg 77.1 kg 77.1 kg Intake: IV 1320 1560 Sodium Chloride 0.9% 1, 1320 1560 000 ml @ 120 mls/hr IV . Q8H20M RHEA Rx#:[id number] Intake, IV Titration 217.246 Amount Propofol 1,000 mg In 97.246 Empty Bag 1 bag @ 10 MCG/ KG/MIN 4.721 mls/hr IV . [id number] RHEA Rx#:[id number] Sodium Chloride 0.9% 1, 120 000 ml @ 120 mls/hr IV . Q8H20M RHEA Rx#:[id number] Oral 120 Tube Feeding 90 Output: Urine 2320 1030 Other: Voiding Method Indwelling Catheter Indwelling Catheter Indwelling Catheter - Exam -GENERAL: The patient is status post extubation and his confused HEENT: Pupils are round and equally reacting to light. EOMI. No scleral icterus. No conjunctival pallor. Normocephalic, atraumatic. No pharyngeal erythema. No thyromegaly. CARDIOVASCULAR: S1 and S2 present. No murmurs, rubs, or gallops. PULMONARY: Chest is clear to auscultation, no wheezing or crackles. ABDOMEN: Soft, nontender, nondistended, normoactive bowel sounds. No palpable organomegaly. MUSCULOSKELETAL: No joint swelling or deformity. EXTREMITIES: No cyanosis, clubbing, or pedal edema. NEUROLOGICAL: Gross neurological examination did not reveal any focal deficits. SKIN: No rashes. no petechiae. - Labs CBC & Chem 7: 11/17/19 04:17 11/17/19 04:14 Labs: Abnormal Lab Results - Last 24 Hours (Table) 11/17/19 11/17/19 Range/Units 04:14 04:17 RBC 3.33 L (4.30-5.90) m/uL Hgb 11.0 L (13.0-17.5) gm/dL Hct 32.2 L (39.0-53.0) % RDW 16.7 H (11.5-15.5) % Chloride 110 H (98-107) mmol/L Magnesium 1.3 L (1.6-2.3) mg/dL Microbiology - Last 24 Hours (Table) 11/15/19 00:30 Gram Stain - Final Sputum Sputum Culture - Final Assessment and Plan Assessment: Alcohol withdrawal with delirium tremens Seizure on presentation suspicious for withdrawal seizure. Primary incisional also suspected but EEG was negative Status post intubation to protect airway. He got extubated on 11/16/2019 Nicotine dependence History of anxiety and depression Plan: this is a pleasant 59 years old male who presents with seizure and alcohol withdrawal. His vent management as per pulmonary/critical care team. Possible intubation Continue with CIWA protocol, continue with antiacids and IV fluids. Continue with thiamine. Continue with Keppra as per neurologist recommendations Labs and medication were reviewed.. Continue same treatment. Continue with symptomatic treatment. Resume home medication. Monitor lytes and vitals. DVT and GI prophylaxis. Further recommendations of the clinical course of the patient DVT prophylaxis: Subcutaneous heparin GI Prophylaxis: Pepcid Prognosis is guarded
[2019-11-17] MEDS: traZODone HCL 50 MG TAB PO PRN (23:40)
--- NOTE | 2019-11-18 08:03 | XR ---
EXAMINATION TYPE: XR chest 1V portable DATE OF EXAM: 11/18/2019 COMPARISON: 11/17/2019 INDICATION: Previous abnormal chest x-ray TECHNIQUE: Single frontal view of the chest is obtained. FINDINGS: The heart size is normal. The pulmonary vasculature is normal. The lungs are clear. Minimal left pleural effusion and costophrenic angles is not excluded. IMPRESSION: 1. Very minimal left pleural effusion is not excluded.
[2019-11-18] MEDS: IPRATROPIUM-ALBUTEROL 3 ML NEB INHALATION SCH ×4 (08:06→19:39)
[2019-11-18] MEDS ORDERED: Magnesium Replacement Protocol 1 EACH MISC MISCELLANE PRN (09:35)
[2019-11-18] MEDS: GABAPENTIN 300 MG CAP PO SCH ×3 (09:42→20:30)
[2019-11-18] MEDS: THIAMINE 100 MG TAB PO SCH ×2 (09:42→15:20)
[2019-11-18] MEDS: HEPARIN SODIUM,PORCINE 5,000 UNIT/ML 1 ML VIAL SQ SCH ×3 (09:42→23:09)
[2019-11-18] MEDS: TAMSULOSIN 0.4 MG CAP.ER.24H PO SCH ×2 (09:42→20:30)
[2019-11-18] MEDS: FAMOTIDINE 20 MG TAB PO SCH (09:42)
[2019-11-18] MEDS: levETIRAcetam 500 MG TAB PO SCH ×2 (09:42→20:43)
--- NOTE | 2019-11-18 10:45 | P.PN ---
Subjective Progress Note Date: 11/18/19 Principal diagnosis: Acute delirium tremens, acute alcohol withdrawal This is a 59-year-old white male with history of alcoholism, since he was 25 years old. Patient lives in a three-quarter house. And supposedly has been sober for the last 90 days. Few days prior to admission, his daughter was involved in a motor vehicle accident, patient was stressed out, and he started d rinking again on the average of fifth of vodka daily for the last 3 days prior to admission. He claimed that he had a seizure, fell backwards, did not bite his tongue, and did not lose control of urine. Patient is known to have history of seizure disorder and has been on Keppra. In the ER, patient was shaking continuously, extremely tremulous, and he had a very sketchy poor history. Patient was admitted and his alcohol level at the time was 103. Drug screen was negative. Labs were basically unremarkable, and he had an EEG on the day of admission which was basically normal. Patient was managed by the admitting physician for his alcohol withdrawal, and last night patient was enough for point leather restraints, and he was extremely agitated, he had an extremely high CIWA score. Patient was transferred to the ICU, and I have recommended intubation . However patient apparently calm down with medications in the ICU until early this morning he was extremely agitated, and the nurse taking care of the patient was concerned about patient not able to protect his airways. Then I recommended immediate intubation and placement on mechanical ventilation. I saw the patient in the ICU on mechanical ventilation, he is now on assist control mode of mechanical ventilation, rate is 14 tidal volume is 500 FiO2 down to 35% and PEEP of 5. Patient is on propofol at 30 mcg/kg/m, and he is on IV fluid at 1 20 mL per hour. Hemodynamically stable, he has sinus bradycardia, but no hemodynamic instability. Chest x-ray post intubation showed no suspicious process. Reevaluated today on 11/15/2019, patient remains in the ICU, intubated, and mechanically ventilated. His ventilator settings are assist control rate of 14, tidal volume is 500, FiO2 is 40%, PEEP is 5. Remains on propofol at 35 mcg/kg/m, not requiring any pressors, easily arousable when sedation is decreased. Hemodynamically stable. Chest x-ray showed mostly bibasilar atelectasis, no clear-cut evidence of pneumonia. ABG showed a pO2 of 88 pCO2 of 45 pH of 7.37 CBC is relatively normal basic metabolic profile is normal renal profile is normal. Magnesium is low, being corrected as per protocol. The patient is seen today 11/18/2019 in follow-up in the intensive care unit. He is currently awake and alert in no acute distress. He was extubated on 11/16/2019. He is currently on room air and maintaining O2 saturations in the 90s. No current IV. He's been afebrile. Hemodynamically stable. No seizure activity noted. Sputum culture reveals no growth. Magnesium 1.5. He is continued on DuoNeb inhalations. Remains on Keppra. Chest x-ray reveals minimal left pleural effusion. Objective - Vital Signs Vital signs: Vital Signs Temp 98.3 F 11/18/19 08:00 Pulse 62 11/18/19 08:00 Resp 15 11/18/19 08:00 BP 130/72 11/18/19 08:00 Pulse Ox 94 L 11/18/19 08:00 Intake & Output 11/17/19 11/18/19 11/18/19 18:59 06:59 18:59 Intake Total 200 Output Total 250 Balance -50 Weight 77.1 kg 81.1 kg Intake: Oral 200 Output: Urine 250 Other: Voiding Method Indwelling Catheter # Voids 2 - Exam GENERAL EXAM: Alert, pleasant 59-year-old gentleman, on room air comfortable in no apparent distress. HEAD: Normocephalic. EYES: Normal reaction of pupils, equal size. NOSE: Clear with pink turbinates. THROAT: No erythema or exudates. NECK: No masses, no JVD. CHEST: No chest wall deformity. LUNGS: Equal air entry with no crackles, wheeze, rhonchi or dullness. CVS: S1 and S2 normal with no audible murmur, regular rhythm. ABDOMEN: No hepatosplenomegaly, normal bowel sounds, no guarding or rigidity. SPINE: No scoliosis or deformity SKIN: No rashes CENTRAL NERVOUS SYSTEM: No focal deficits, tone is normal in all 4 extremities. EXTREMITIES: There is no peripheral edema. No clubbing, no cyanosis. Peripheral pulses are intact. - Labs CBC & Chem 7: 11/17/19 04:17 11/17/19 04:14 Labs: Abnormal Lab Results - Last 24 Hours (Table) 11/18/19 Range/Units 08:05 Magnesium 1.5 L (1.6-2.3) mg/dL Microbiology - Last 24 Hours (Table) 11/15/19 00:30 Gram Stain - Final Sputum Sputum Culture - Final Assessment and Plan Assessment: 1: Acute alcohol withdrawal, acute delirium tremens. 2: Possible seizure on presentation, patient is known to have history of seizures. May or may not be related to alcohol. This was not a witnessed seizure. 3: History of alcoholism. 4: Acute alcohol intoxication upon presentation to the ER. 5: History of depression. 6: Acute respiratory failure secondary to delirium tremens, patient was mostly intubated to protect his airways. Extubated on 11/16/2019. Currently on room air. Plan: The patient was seen and evaluated by Dr. Dwyer. He is currently stable from the pulmonary and critical care standpoint. He'll be transferred out to the [facility] medical floor. We will continue to follow and make further recommendations based on his clinical status. I, the cosigning physician, performed a history & physical examination of the patient. Lungs sounds are clear. Maintaining good O2 saturations in the 90s on room air. I discussed the assessment and plan of care with my nurse practitioner, Bertha Leavitt. I attest to the above note as dictated by her.
[2019-11-18] MEDS: MAGNESIUM SULFATE-D5W PMX 1 GM in DEXTROSE/WATER 1 100ML.BAG IVPB SCH ×2 (11:34→12:42)
[2019-11-18] MEDS: PROPOFOL 1,000 MG in EMPTY BAG 1 BAG IV SCH (16:57)
[2019-11-18] MEDS: PANTOPRAZOLE 40 MG TABLET PO SCH (17:00)
[2019-11-18] MEDS: traZODone HCL 50 MG TAB PO PRN (20:43)
--- NOTE | 2019-11-18 20:51 | PN ---
PROGRESS NOTE DATE OF SERVICE: 11/18/2019 This 59-year-old gentleman who was admitted with alcohol withdrawal and delirium tremens also had seizures. The patient is being closely monitored at this time. The EGD did not show acute abnormality. The patient is extubated currently. The patient continues to be confused. Patient is being closely monitored. A chest x-ray which was reviewed personally by me showed very minimal left pleural effusion. PAST MEDICAL HISTORY: Reviewed. REVIEW OF SYSTEMS: CARDIOVASCULAR SYSTEM: No angina. RESPIRATORY: No cough, no hemoptysis. GI: As mentioned earlier. : No dysuria. NEURO: No numbness or weakness. CURRENT MEDICATIONS: 1. DuoNeb q.i.d. and p.r.n. 2. Pepcid 20 mg p.o. b.i.d. 3. Neurontin 300 mg p.o. t.i.d. 4. Heparin. 5. Apresoline. 6. Keppra. 7. Ativan. 8. Replacement protocol. 9. Propofol. 10.Vitamin. 11.Desyrel. PHYSICAL EXAM: Patient is alert, oriented x2. Pulse is 61, blood pressure 140/69, respirations 16, temperature 97.6, pulse ox 98% on room air. HEENT: Conjunctivae normal. Oral mucosa moist. NECK: No jugular venous distention. No lymph node enlargement. CARDIOVASCULAR: S1, S2. RESPIRATORY: Diminished breath sounds at the bases. A few scattered rhonchi and crackles. ABDOMEN: Soft, obese, nontender. LEGS: No edema, no swelling. NERVOUS SYSTEM: Higher functions mentioned earlier. Moves all four limbs. Mild diffuse weakness. LYMPHATICS: No lymph node in neck or axilla. SKIN: No rash. JOINTS: No active deforming arthropathy. LABS: WBC 8.8, hemoglobin 11, sodium 130, potassium 3.7. Liver functions are pending and magnesium 1.3 and 1.5. ASSESSMENT: 1. Alcohol withdrawal and acute delirium tremens, present on admission with acute seizures secondary to delirium tremens, alcohol withdrawal. 2. Acute hypoxic respiratory failure status post mechanical ventilation. 3. Change in mental status, metabolic encephalopathy. 4. History of nicotine dependence. 5. History of anxiety, depression. 6. Hypomagnesemia. 7. Increased random blood sugar. 8. Anemia, normocytic anemia of chronic disease. 9. History of seizure disorder. 10.History of anxiety, depression. 11.History nicotine dependence. 12.FULL CODE. RECOMMENDATIONS AND DISCUSSION: In this 59-year-old gentleman who presented with multiple complex medical issues, we will monitor the patient closely, continue the current medication, extubated, supplement multivitamins. DVT prophylaxis. Proton pump inhibitors. Otherwise, closely monitor. Increase ambulation. Guarded prognosis. Further recommendations to follow. See orders for details. Alcohol cessation advice has been given. MMODL / IJN: [id number] /
[2019-11-19 07:23] LABS: Anisocytosis Slight; Basophils % (A) 0 %; Eosinophils # (A) 0.4 k/uL (0-0.7); Eosinophils % (A) 7 %; HCT 35.2 % (39.0-53.0); HGB 11.7 gm/dL (13.0-17.5); Lymphocytes # (A) 1.7 k/uL (1.0-4.8); Lymphocytes % (A) 27 %; MCH 31.8 pg (25.0-35.0); MCHC 33.2 g/dL (31.0-37.0); MCV 95.6 fL (80.0-100.0); Mean Platelet Volume 7.5; Monocytes # (A) 0.7 k/uL (0-1.0); Monocytes % (A) 11 %; Neutrophils # (A) 3.2 k/uL (1.3-7.7); Neutrophils % (A) 52 %; Platelet Count 197 k/uL (150-450); RBC 3.68 m/uL (4.30-5.90); RDW 16.4 % (11.5-15.5); WBC 6.3 k/uL (3.8-10.6)
[2019-11-19 07:41] LABS: ALT 12 U/L (4-49); AST 23 U/L (17-59); African American GFR (CKD) >90 (>60 ml/min/1.73 sqM); Albumin 3.5 g/dL (3.5-5.0); Alkaline Phosphatase 41 U/L (38-126); Anion Gap 4 mmol/L; Blood Urea Nitrogen 18 mg/dL (9-20); Calcium 9.5 mg/dL (8.4-10.2); Carbon Dioxide 32 mmol/L (22-30); Chloride 105 mmol/L (98-107); Glucose 92 mg/dL (74-99); Magnesium 1.5 mg/dL (1.6-2.3); Non-African American GFR(CKD) >90 (>60 ml/min/1.73 sqM); Sodium 141 mmol/L (137-145); Total Bilirubin 0.8 mg/dL (0.2-1.3); Total Protein 6.1 g/dL (6.3-8.2)
[2019-11-19] MEDS: IPRATROPIUM-ALBUTEROL 3 ML NEB INHALATION SCH ×2 (08:14→11:36)
[2019-11-19 08:58] VITALS: BP 106/63; RESP 17; TEMP 97.9
[2019-11-19] MEDS: GABAPENTIN 300 MG CAP PO SCH (09:06)
[2019-11-19] MEDS: levETIRAcetam 500 MG TAB PO SCH (09:06)
[2019-11-19] MEDS: THIAMINE 100 MG TAB PO SCH (09:06)
[2019-11-19] MEDS: HEPARIN SODIUM,PORCINE 5,000 UNIT/ML 1 ML VIAL SQ SCH (09:06)
[2019-11-19] MEDS: PANTOPRAZOLE 40 MG TABLET PO SCH (09:06)
[2019-11-19] MEDS: TAMSULOSIN 0.4 MG CAP.ER.24H PO SCH (09:06)
[2019-11-19 11:38] VITALS: PULSE 68
[2019-11-19] MEDS ORDERED: MULTIVITAMINS, THERA 1 EACH TAB PO SCH (12:00)
[2019-11-19] MEDS ORDERED: FOLIC ACID 1 MG TAB PO SCH (12:00)
[2019-11-19 13:16] VITALS: BMI 24.2
--- NOTE | 2019-11-19 15:36 | P.PN ---
Subjective Progress Note Date: 11/19/19 Principal diagnosis: Acute delirium tremens, acute alcohol withdrawal This is a 59-year-old white male with history of alcoholism, since he was 25 years old. Patient lives in a three-quarter house. And supposedly has been sober for the last 90 days. Few days prior to admission, his daughter was involved in a motor vehicle accident, patient was stressed out, and he started d rinking again on the average of fifth of vodka daily for the last 3 days prior to admission. He claimed that he had a seizure, fell backwards, did not bite his tongue, and did not lose control of urine. Patient is known to have history of seizure disorder and has been on Keppra. In the ER, patient was shaking continuously, extremely tremulous, and he had a very sketchy poor history. Patient was admitted and his alcohol level at the time was 103. Drug screen was negative. Labs were basically unremarkable, and he had an EEG on the day of admission which was basically normal. Patient was managed by the admitting physician for his alcohol withdrawal, and last night patient was enough for point leather restraints, and he was extremely agitated, he had an extremely high CIWA score. Patient was transferred to the ICU, and I have recommended intubation . However patient apparently calm down with medications in the ICU until early this morning he was extremely agitated, and the nurse taking care of the patient was concerned about patient not able to protect his airways. Then I recommended immediate intubation and placement on mechanical ventilation. I saw the patient in the ICU on mechanical ventilation, he is now on assist control mode of mechanical ventilation, rate is 14 tidal volume is 500 FiO2 down to 35% and PEEP of 5. Patient is on propofol at 30 mcg/kg/m, and he is on IV fluid at 1 20 mL per hour. Hemodynamically stable, he has sinus bradycardia, but no hemodynamic instability. Chest x-ray post intubation showed no suspicious process. Reevaluated today on 11/15/2019, patient remains in the ICU, intubated, and mechanically ventilated. His ventilator settings are assist control rate of 14, tidal volume is 500, FiO2 is 40%, PEEP is 5. Remains on propofol at 35 mcg/kg/m, not requiring any pressors, easily arousable when sedation is decreased. Hemodynamically stable. Chest x-ray showed mostly bibasilar atelectasis, no clear-cut evidence of pneumonia. ABG showed a pO2 of 88 pCO2 of 45 pH of 7.37 CBC is relatively normal basic metabolic profile is normal renal profile is normal. Magnesium is low, being corrected as per protocol. The patient is seen today 11/18/2019 in follow-up in the intensive care unit. He is currently awake and alert in no acute distress. He was extubated on 11/16/2019. He is currently on room air and maintaining O2 saturations in the 90s. No current IV. He's been afebrile. Hemodynamically stable. No seizure activity noted. Sputum culture reveals no growth. Magnesium 1.5. He is continued on DuoNeb inhalations. Remains on Keppra. Chest x-ray reveals minimal left pleural effusion. The patient is seen today 11/19/2019 in follow-up on the regular medical floor. He is currently awake and alert in no acute distress. He is maintaining O2 saturations in the 90s on room air. Sputum culture reveals no growth. White count 6.3. Hemoglobin 11.7. Creatinine 0.84. No further seizure activity. Objective - Vital Signs Vital signs: Vital Signs Temp 97.9 F 11/19/19 07:40 Pulse 68 11/19/19 11:47 Resp 17 11/19/19 08:15 BP 106/63 11/19/19 07:40 Pulse Ox 95 11/19/19 08:14 Intake & Output 11/18/19 11/19/19 11/19/19 18:59 06:59 18:59 Intake Total 400 650 Output Total 250 Balance 400 400 Weight 81.1 kg Intake: Oral 400 650 Output: Urine 250 Other: Voiding Method Urinal Urinal # Voids 1 1 3 - Exam GENERAL EXAM: Alert, pleasant 59-year-old gentleman, on room air comfortable in no apparent distress. HEAD: Normocephalic. EYES: Normal reaction of pupils, equal size. NOSE: Clear with pink turbinates. THROAT: No erythema or exudates. NECK: No masses, no JVD. CHEST: No chest wall deformity. LUNGS: Equal air entry with no crackles, wheeze, rhonchi or dullness. CVS: S1 and S2 normal with no audible murmur, regular rhythm. ABDOMEN: No hepatosplenomegaly, normal bowel sounds, no guarding or rigidity. SPINE: No scoliosis or deformity SKIN: No rashes CENTRAL NERVOUS SYSTEM: No focal deficits, tone is normal in all 4 extremities. EXTREMITIES: There is no peripheral edema. No clubbing, no cyanosis. Peripheral pulses are intact. - Labs CBC & Chem 7: 11/19/19 06:45 11/19/19 06:45 Labs: Abnormal Lab Results - Last 24 Hours (Table) 11/19/19 11/19/19 Range/Units 06:45 06:45 RBC 3.68 L (4.30-5.90) m/uL Hgb 11.7 L (13.0-17.5) gm/dL Hct 35.2 L (39.0-53.0) % RDW 16.4 H (11.5-15.5) % Carbon Dioxide 32 H (22-30) mmol/L Magnesium 1.5 L (1.6-2.3) mg/dL Total Protein 6.1 L (6.3-8.2) g/dL Assessment and Plan Assessment: 1: Acute alcohol withdrawal, acute delirium tremens. 2: Possible seizure on presentation, patient is known to have history of seizures. May or may not be related to alcohol. This was not a witnessed seizure. 3: History of alcoholism. 4: Acute alcohol intoxication upon presentation to the ER. 5: History of depression. 6: Acute respiratory failure secondary to delirium tremens, patient was mostly intubated to protect his airways. Extubated on 11/16/2019. Currently on room air. Plan: The patient was seen and evaluated by Dr. Dwyer. He is cleared for discharge from the pulmonary standpoint. We'll see the patient on an as-needed basis. I, the cosigning physician, performed a history & physical examination of the patient. Lungs sounds are clear. Maintaining good O2 saturations in the 90s on room air. I discussed the assessment and plan of care with my nurse practitioner, Bertha Leavitt. I attest to the above note as dictated by her.
--- NOTE | 2019-11-20 09:48 | DS ---
DISCHARGE SUMMARY DATE OF SERVICE: 11/19/2019 FINAL DIAGNOSES: 1. Alcohol withdrawal seizures, acute delirium tremens, present on admission with acute seizures secondary to delirium tremens, alcohol withdrawal. 2. Acute hypoxic respiratory failure, status post mechanical ventilation. 3. Change in mental status, metabolic encephalopathy. 4. History of nicotine dependence. 5. History of anxiety, depression. 6. Hypomagnesemia. 7. Increased random blood sugar. 8. Anemia, normocytic anemia of chronic disease. 9. History of seizure disorder. 10.Anxiety, depression. 11.History of nicotine dependence. 12.FULL CODE. DISCHARGE DISPOSITION: The patient will be discharged in a stable condition with guarded prognosis. HISTORY OF PRESENT ILLNESS: This is a 59-year-old gentleman with a past medical history of multiple medical problems admitted with alcohol withdrawal and multiple other medical issues. The patient was mechanically ventilated and monitored in ICU. The patient improved significantly, patient transferred out of ICU. Pulmonary saw the patient, cleared the patient for discharge. On exam, vitals are stable. CARDIOVASCULAR: S1, S2, muffled. ABDOMEN: Soft. NERVOUS SYSTEM: No focal deficits. DISCHARGE ADVICE AND MEDICATIONS: 1. Diet is cardiac diet. 2. Activity limited until followup. 3. Follow up with primary physician in 2-3 days. 4. Follow up with Pulmonary and Neurology as recommended. MEDICATIONS: 1. Ativan 2 mg q.h.s. 2. Flomax 0.4 b.i.d. 3. Neurontin 600 mg q.i.d. 4. Trazodone 150 mg q.h.s. 5. Albuterol 2 puffs q.i.d. p.r.n. 6. Folic acid 1 mg daily. 7. Keppra 500 mg p.o. b.i.d. 8. Multivitamins. 9. Thiamine 100 mg p.o. b.i.d. Follow up with Dr. Ernst as recommended. MMODL / IJN: [id number] /
== END 2019-11-19 14:56 | disposition home or self-care (01) | DRG 896 ==
LOC: EC 09:38 → 5NMEDONC 12:47 → 2SICU 11-13 23:26 → 4SSUR 11-18 11:04
PROVIDERS: ADMIT Internal Medicine; ATTEND Internal Medicine
PROC: 5A1945Z Respiratory Ventilation, 24-96 Consecutive Hours (ICD-10-PCS; principal; 2019-11-14)
PROC: 0BH17EZ Insertion of Endotracheal Airway into Trachea, Via Natural or Artificial Opening (ICD-10-PCS; principal; 2019-11-14)
DX: F10.231 Alcohol dependence with withdrawal delirium (principal); G93.41 Metabolic encephalopathy; J96.01 Acute respiratory failure with hypoxia; J98.11 Atelectasis; E83.42 Hypomagnesemia; D63.8 Anemia in other chronic diseases classified elsewhere; F17.210 Nicotine dependence, cigarettes, uncomplicated; F41.9 Anxiety disorder, unspecified; F32.9 Major depressive disorder, single episode, unspecified; G40.909 Epilepsy, unspecified, not intractable, without status epilepticus; R32 Unspecified urinary incontinence; Y90.5 Blood alcohol level of 100-119 mg/100 ml; Z96.653 Presence of artificial knee joint, bilateral; Z79.899 Other long term (current) drug therapy; Z78.1 Physical restraint status
CPT/HCPCS: 36415; 36600; 70450; 71045; 72125; 80048; 80053; 80306; 80320; 81001; 82805; 83520; 83735; 85025; 85027; 87070; 87205; 93005; 94002; 94003; 94640; 94760; 95816; 96372; 96374; 99285

== ENCOUNTER 2019-12-18 13:59 | Observation (INO) | payer MEDICARE ==
[2019-12-18] MEDS ORDERED: LORazepam 2 MG/ML INJ IV STA (14:45)
[2019-12-18] MEDS ORDERED: SODIUM CHLORIDE 0.9% 1,000 ML with MVI, ADULT NO.4 WITH VIT K 10 ML, THIAMINE 100 MG, F... IV ONE ×4 (14:45)
[2019-12-18 14:48] LABS: Anisocytosis Slight; Basophils % (A) 1 %; Eosinophils # (A) 0.1 k/uL (0-0.7); Eosinophils % (A) 2 %; HGB 13.5 gm/dL (13.0-17.5); Lymphocytes # (A) 1.7 k/uL (1.0-4.8); Lymphocytes % (A) 22 %; MCH 32.4 pg (25.0-35.0); MCHC 33.8 g/dL (31.0-37.0); MCV 95.8 fL (80.0-100.0); Mean Platelet Volume 6.7; Monocytes # (A) 0.3 k/uL (0-1.0); Monocytes % (A) 4 %; Neutrophils # (A) 5.4 k/uL (1.3-7.7); Neutrophils % (A) 70 %; Platelet Count 221 k/uL (150-450); RBC 4.18 m/uL (4.30-5.90); RDW 16.2 % (11.5-15.5); WBC 7.7 k/uL (3.8-10.6)
--- NOTE | 2019-12-18 14:54 | ED ---
Alcohol HPI - General Chief Complaint: Alcohol Stated Complaint: Altered Mental Status Time Seen by Provider: 12/18/19 14:00 Source: patient, EMS, RN notes reviewed, old records reviewed Mode of arrival: EMS Limitations: no limitations - History of Present Illness Initial Comments: This is a 58-year-old male with a history of alcoholism who was found apparently unresponsive at home by her roommate EMS was called the patient brought here for evaluation he was awake and alert though he did have a breath alcohol level to 70 upon arrival. He denies any drugs or other medications denies any trauma states he has not slept for the past 3 days. No fevers chills sweats no cough no other modifying factors at this time he has had alcohol withdrawal in the past and was recently admitted for the same MD Complaint: alcohol intoxication - Related Data Home Medications Medication Instructions Recorded Confirmed Albuterol Inhaler [Ventolin Hfa 2 puff INHALATION RT-Q8H PRN 11/11/19 11/11/19 Inhaler] Gabapentin [Neurontin] 600 mg PO QID 11/11/19 11/11/19 LORazepam [Ativan] 2 mg PO HS 11/11/19 11/11/19 Tamsulosin HCl [Flomax] 0.4 mg PO BID 11/11/19 11/11/19 traZODone HCL 150 mg PO HS 11/11/19 11/11/19 Previous Rx's Medication Instructions Recorded Folic Acid 1 mg PO DAILY@1200 #30 tab 11/19/19 Multivitamins, Thera [Multivitamin 1 each PO DAILY@1200 #30 tab 11/19/19 (formulary)] Thiamine [Vitamin B-1] 100 mg PO BID-W/MEALS #30 tab 11/19/19 levETIRAcetam [Keppra] 500 mg PO Q12HR #60 tab 11/19/19 Allergies Allergy/AdvReac Type Severity Reaction Status Date / Time No Known Allergies Allergy Verified 11/11/19 13:16 Review of Systems ROS Statement: Those systems with pertinent positive or pertinent negative responses have been documented in the HPI. ROS Other: All systems not noted in ROS Statement are negative. Past Medical History Past Medical History: Seizure Disorder Additional Past Medical History / Comment(s): seizure from etoh states drank last night and had seizure this am states hit head requesting meds in triage for shaking History of Any Multi-Drug Resistant Organisms: None Reported Past Surgical History: Joint Replacement, Orthopedic Surgery Additional Past Surgical History / Comment(s): 3 l knee replacement r hip Past Anesthesia/Blood Transfusion Reactions: No Reported Reaction Past Psychological History: Anxiety, Depression Smoking Status: Current every day smoker Past Alcohol Use History: Abuse, Daily, Heavy Past Drug Use History: None Reported General Exam - General Exam Comments Initial Comments: This is a well-developed sec appearing male who is awake alert somewhat lethargic with the smell of alcohol conjoiners on his breath Limitations: no limitations General appearance: alert, lethargic Head exam: Present: atraumatic, normocephalic, normal inspection Eye exam: Present: normal appearance, PERRL, EOMI. Absent: scleral icterus, conjunctival injection, periorbital swelling ENT exam: Present: normal exam, mucous membranes moist Neck exam: Present: normal inspection. Absent: tenderness, meningismus, lymphadenopathy Respiratory exam: Present: normal lung sounds bilaterally. Absent: respiratory distress, wheezes, rales, rhonchi, stridor Cardiovascular Exam: Present: regular rate, normal rhythm, normal heart sounds. Absent: systolic murmur, diastolic murmur, rubs, gallop, clicks GI/Abdominal exam: Present: soft, normal bowel sounds. Absent: distended, tenderness, guarding, rebound, rigid Extremities exam: Present: normal inspection, full ROM, normal capillary refill. Absent: tenderness, pedal edema, joint swelling, calf tenderness Back exam: Present: normal inspection Neurological exam: Present: alert, oriented X3, CN II-XII intact Psychiatric exam: Present: normal affect, depressed. Absent: suicidal ideation Skin exam: Present: warm, dry, intact, normal color. Absent: rash Course Vital Signs 12/18/19 14:01 Temperature 98.4 F Pulse Rate 73 Respiratory 16 Rate Blood Pressure 128/91 O2 Sat by Pulse 94 L Oximetry - Reevaluation(s) Reevaluation #1: 12/18/19 17:40 Patient is resting comfortably without any distress at this time Medical Decision Making - Medical Decision Making Patient does demonstrate evidence of acute alcohol intoxication as well as rhabdomyolysis hypomagnesemia and dehydration. He was hypoglycemic additionally. This is a repeat visit for the patient with a similar presentation in the past. He will be admitted for treatment of the above I did discuss the case with Dr. Riley who did come to see the patient in the ER. - Lab Data Result diagrams: 12/18/19 14:31 12/18/19 14:31 Lab Results 12/18/19 12/18/19 Range/Units 14:31 14:31 WBC 7.7 (3.8-10.6) k/uL RBC 4.18 L (4.30-5.90) m/uL Hgb 13.5 (13.0-17.5) gm/dL Hct 40.0 (39.0-53.0) % MCV 95.8 (80.0-100.0) fL MCH 32.4 (25.0-35.0) pg MCHC 33.8 (31.0-37.0) g/dL RDW 16.2 H (11.5-15.5) % Plt Count 221 (150-450) k/uL Neutrophils % 70 % Lymphocytes % 22 % Monocytes % 4 % Eosinophils % 2 % Basophils % 1 % Neutrophils # 5.4 (1.3-7.7) k/uL Lymphocytes # 1.7 (1.0-4.8) k/uL Monocytes # 0.3 (0-1.0) k/uL Eosinophils # 0.1 (0-0.7) k/uL Basophils # 0.0 (0-0.2) k/uL Anisocytosis Slight Sodium 142 (137-145) mmol/L Potassium 4.2 (3.5-5.1) mmol/L Chloride 103 (98-107) mmol/L Carbon Dioxide 25 (22-30) mmol/L Anion Gap 14 mmol/L BUN 17 (9-20) mg/dL Creatinine 0.95 (0.66-1.25) mg/dL Est GFR (CKD-EPI)AfAm >90 (>60 ml/min/1.73 sqM) Est GFR (CKD-EPI)NonAf 88 (>60 ml/min/1.73 sqM) Glucose 69 L (74-99) mg/dL Calcium 8.9 (8.4-10.2) mg/dL Magnesium 1.5 L (1.6-2.3) mg/dL Total Bilirubin 0.5 (0.2-1.3) mg/dL AST 94 H (17-59) U/L ALT 27 (4-49) U/L Alkaline Phosphatase 72 (38-126) U/L Creatine Kinase 1554 H* (55-170) U/L Total Protein 7.4 (6.3-8.2) g/dL Albumin 4.3 (3.5-5.0) g/dL Serum Alcohol 329 H* mg/dL Disposition Clinical Impression: Alcoholic intoxication, Rhabdomyolysis, Dehydration, Hypomagnesemia Disposition: ADMITTED IP TO THIS HOSP Condition: Fair Referrals: Tamanna Barbosa DO [Primary Care Provider] - 1-2 days
[2019-12-18 15:07] LABS: ALT 27 U/L (4-49); AST 94 U/L (17-59); African American GFR (CKD) >90 (>60 ml/min/1.73 sqM); Albumin 4.3 g/dL (3.5-5.0); Alkaline Phosphatase 72 U/L (38-126); Anion Gap 14 mmol/L; Blood Urea Nitrogen 17 mg/dL (9-20); Calcium 8.9 mg/dL (8.4-10.2); Carbon Dioxide 25 mmol/L (22-30); Chloride 103 mmol/L (98-107); Glucose 69 mg/dL (74-99); Magnesium 1.5 mg/dL (1.6-2.3); Non-African American GFR(CKD) 88 (>60 ml/min/1.73 sqM); Potassium 4.2 mmol/L (3.5-5.1); Sodium 142 mmol/L (137-145); Total Bilirubin 0.5 mg/dL (0.2-1.3); Total Protein 7.4 g/dL (6.3-8.2)
[2019-12-18 15:17] LABS: Creatine Kinase 1554 U/L (55-170)
[2019-12-18 15:18] LABS: Alcohol 329 mg/dL
[2019-12-18] MEDS ORDERED: SODIUM CHLORIDE 0.9% 1,000 ML IV STA (15:27)
[2019-12-18] MEDS ORDERED: LORazepam 2 MG/ML INJ IV PRN ×3 (17:39)
[2019-12-18] MEDS ORDERED: THIAMINE 100 MG/ML 2 ML VIAL IM STA (17:39)
[2019-12-18] MEDS ORDERED: MAGNESIUM SULFATE-D5W PMX 1 GM in DEXTROSE/WATER 1 100ML.BAG IVPB ONE (17:41)
[2019-12-18] MEDS ORDERED: NALOXONE 0.4 MG/ML 1 ML VIAL IV PRN (17:43)
[2019-12-18] MEDS ORDERED: SODIUM CHLORIDE 0.9% 1,000 ML IV SCH (17:45)
--- NOTE | 2019-12-18 17:51 | P.HPIM ---
History of Present Illness H&P Date: 12/18/19 Chief Complaint: Unresponsive 59-year-old male with history of seizures, alcohol withdrawal seizures, anxiety Patient was brought in today by EMS. There is a reported that his roommate found him unresponsive. Patient claims that he was at [facility], he tells me that he lives in [place] is not clear why he is here he is a bit confused though during the interview. By the time he arrived to the hospital he was awake alert smells of alcohol his blood alcohol level was very high. Patient is shaky reports that he goes into very bad withdrawals he tells me that he only drinks 4 beers every day he admits to smoking denies any drugs denies any suicidal or homicidal ideation. He tells me that he is very anxious person he needs Ativan. He also reports some pain in his lower extremities over the left knee from prior injuries in the past. In the ED was also found to have elevated creatinine kinase suspicion of rhabdomyolysis however his kidney function is normal. Patient denies any chest pain or trouble breathing denies any fevers or chills patient looks anxious and tells me that he needs to sleep and he has not slept for 3 days. No other history is obtainable from the patient at this time Review of Systems Very limited due to patient mental status acutely intoxicated otherwise as mentioned in HPI Past Medical History Past Medical History: Seizure Disorder Additional Past Medical History / Comment(s): seizure from etoh states drank last night and had seizure this am states hit head requesting meds in triage for shaking History of Any Multi-Drug Resistant Organisms: None Reported Past Surgical History: Joint Replacement, Orthopedic Surgery Additional Past Surgical History / Comment(s): 3 l knee replacement r hip Past Anesthesia/Blood Transfusion Reactions: No Reported Reaction Past Psychological History: Anxiety, Depression Smoking Status: Current every day smoker Past Alcohol Use History: Abuse, Daily, Heavy Past Drug Use History: None Reported - Past Family History Family Family Medical History: Unable to Obtain Medications and Allergies Home Medications Medication Instructions Recorded Confirmed Type Albuterol Inhaler [Ventolin Hfa 2 puff INHALATION RT-Q8H PRN 11/11/19 11/11/19 History Inhaler] Gabapentin [Neurontin] 600 mg PO QID 11/11/19 11/11/19 History LORazepam [Ativan] 2 mg PO HS 11/11/19 11/11/19 History Tamsulosin HCl [Flomax] 0.4 mg PO BID 11/11/19 11/11/19 History traZODone HCL 150 mg PO HS 11/11/19 11/11/19 History Folic Acid 1 mg PO DAILY@1200 #30 tab 11/19/19 Rx Multivitamins, Thera [Multivitamin 1 each PO DAILY@1200 #30 tab 11/19/19 Rx (formulary)] Thiamine [Vitamin B-1] 100 mg PO BID-W/MEALS #30 tab 11/19/19 Rx levETIRAcetam [Keppra] 500 mg PO Q12HR #60 tab 11/19/19 Rx Allergies Allergy/AdvReac Type Severity Reaction Status Date / Time No Known Allergies Allergy Verified 11/11/19 13:16 Physical Exam Vitals: Vital Signs Temp Pulse Resp BP Pulse Ox 12/18/19 14:01 98.4 F 73 16 128/91 94 L Intake and Output 12/18/19 12/18/19 12/18/19 06:59 14:59 22:59 Other: Weight 79.379 kg Constitutional: Patient is very anxious, looks suspicious, shaky, cooperative with exam Eyes: Anicteric sclerae, moist conjunctiva, Pupils equal round reactive to light ENMT: NC/AT Oropharynx clear, no erythema, or exudates Neck: Supple, FROM, no masses, or JVD No carotid bruits No thyromegaly Lungs: Clear to auscultation Clear to percussion Normal respiratory effort, no accessory muscle use Cardiovascular: Heart regular in rate and rhythm, No murmurs, gallops, or rubs No peripheral edema Abdominal: Soft Nontender, no guarding, rebound or rigidity Abdomen moving with respiration Normoactive bowel sounds No hepatomegaly, No splenomegaly No palpable mass No abdominal wall hernia noted Skin: Normal temperature, tone, texture, turgor No induration No subcutaneous nodules No rash, lesions No ulcers Extremities: No digital cyanosis No clubbing Pedal pulses intact and symmetrical Radial pulses intact and symmetrical No calf tenderness Psychiatric: Alert and oriented to person, place Patient looks suspicious and paranoid Poor judgement Neuro Muscles Strength 4/5 in all 4 extremities Sensation to light touch grossly present throughout Cranial nerves II-XII grossly intact No focal sensory deficits Lymphatics: no palpable cervical or supraclavicular , or inguinal lymph nodes Results CBC & Chem 7: 12/18/19 14:31 12/18/19 14:31 Labs: Abnormal Lab Results - Last 24 Hours (Table) 12/18/19 12/18/19 Range/Units 14:31 14:31 RBC 4.18 L (4.30-5.90) m/uL RDW 16.2 H (11.5-15.5) % Glucose 69 L (74-99) mg/dL Magnesium 1.5 L (1.6-2.3) mg/dL AST 94 H (17-59) U/L Creatine Kinase 1554 H* (55-170) U/L Serum Alcohol 329 H* mg/dL Assessment and Plan Assessment: 59-year-old male with history of alcohol abuse and recent hospitalization for acute alcohol intoxication and withdrawal seizures. Patient also reports history of seizures. Severe anxiety Comes in today due to his roommate found him unresponsive and was brought to the hospital and was found to have elevated alcohol level and acute rhabdo myolysis Admitted under observation with anticipated length of stay less than 2 midnight Plan: Acute severe alcohol intoxication with delirium Rhabdomyolysis, renal function is within normal limits History of DM tremens and withdrawal seizures History of seizure on Keppra Anxiety Nicotine dependence, smoking Plan Aggressive IV fluid hydration Seizure precautions Fall precautions Benzodiazepines per CIWA scale Thiamine Folic acid Monitor renal function, creatine kinase Supportive care Continue home meds Keppra and trazodone Pain control with Motrin PPI nicotine replacement therapy, counseled to quit drinking and smoking DVT prophylaxis heparin subcu 3 times a day Preformed a thorough record review from recent hospitalization for acute intoxication and withdrawal seizures patient had to be intubated during his most recent hospital stay 2 weeks ago CODE STATUS:full code Discussed with: Patient, ER Anticipated length of stay < than [address]: pending clinical course A total of 60 minutes was spent on the care of this complex patient more than 50% of the time was spent in counseling and care coordination.
[2019-12-18] MEDS: NICOTINE 21MG/24HR PATCH TRANSDERM SCH (19:35)
[2019-12-18] MEDS: GABAPENTIN 300 MG CAP PO SCH ×2 (19:42→22:39)
[2019-12-18] MEDS: IBUPROFEN 400 MG TAB PO SCH (19:43)
[2019-12-18] MEDS: PANTOPRAZOLE 40 MG TABLET PO SCH (19:45)
[2019-12-18 20:32] LABS: Glucose,Whole Blood 81 mg/dL (75-99)
[2019-12-18] MEDS ORDERED: traZODone HCL 50 MG TAB PO SCH (21:00)
[2019-12-18] MEDS ORDERED: levETIRAcetam 500 MG TAB PO SCH (21:00)
[2019-12-18] MEDS: HEPARIN SODIUM,PORCINE 5,000 UNIT/ML 1 ML VIAL SQ SCH (22:39)
[2019-12-18] MEDS: levETIRAcetam 500 MG TAB PO SCH (22:39)
[2019-12-18] MEDS: TAMSULOSIN 0.4 MG CAP.ER.24H PO SCH (22:39)
[2019-12-19] MEDS: IBUPROFEN 400 MG TAB PO SCH ×2 (00:53→08:06)
[2019-12-19] MEDS ORDERED: IPRATROPIUM-ALBUTEROL 3 ML NEB INHALATION PRN (01:05)
[2019-12-19] MEDS: SODIUM CHLORIDE 0.9% 1,000 ML IV SCH ×3 (01:56→13:29)
[2019-12-19 04:57] VITALS: TEMP 97.7
[2019-12-19] MEDS: GABAPENTIN 300 MG CAP PO SCH ×2 (08:05→14:15)
[2019-12-19] MEDS: TAMSULOSIN 0.4 MG CAP.ER.24H PO SCH (08:06)
[2019-12-19] MEDS: levETIRAcetam 500 MG TAB PO SCH (08:06)
[2019-12-19] MEDS: PANTOPRAZOLE 40 MG TABLET PO SCH (08:06)
[2019-12-19] MEDS: HEPARIN SODIUM,PORCINE 5,000 UNIT/ML 1 ML VIAL SQ SCH ×2 (08:07→15:35)
[2019-12-19] MEDS: NICOTINE 21MG/24HR PATCH TRANSDERM SCH (08:08)
[2019-12-19 08:20] LABS: ALT 26 U/L (4-49); AST 79 U/L (17-59); African American GFR (CKD) >90 (>60 ml/min/1.73 sqM); Albumin 3.5 g/dL (3.5-5.0); Alkaline Phosphatase 64 U/L (38-126); Anion Gap 7 mmol/L; Blood Urea Nitrogen 21 mg/dL (9-20); Calcium 8.4 mg/dL (8.4-10.2); Carbon Dioxide 25 mmol/L (22-30); Chloride 109 mmol/L (98-107); Glucose 83 mg/dL (74-99); Non-African American GFR(CKD) 85 (>60 ml/min/1.73 sqM); Potassium 4.4 mmol/L (3.5-5.1); Sodium 141 mmol/L (137-145); Total Bilirubin 1.1 mg/dL (0.2-1.3); Total Protein 6.4 g/dL (6.3-8.2)
[2019-12-19 09:01] LABS: Creatine Kinase 1059 U/L (55-170)
[2019-12-19 10:20] VITALS: BMI 18.2
[2019-12-19] MEDS ORDERED: IBUPROFEN 400 MG TAB PO PRN (11:44)
[2019-12-19 11:50] VITALS: BP 138/77; PULSE 78; RESP 18
[2019-12-19] MEDS ORDERED: MULTIVITAMINS, THERA 1 EACH TAB PO SCH (12:00)
[2019-12-19 15:07] LABS: Calcium 8.5 mg/dL (8.4-10.2); Potassium 4.6 mmol/L (3.5-5.1)
--- NOTE | 2019-12-19 15:44 | P.DS ---
Providers Date of admission: 12/18/19 17:43 Expected date of discharge: 12/19/19 Attending physician: Tj Holliday MD Primary care physician: Tamanna Barbosa Hospital Course: Discharge Diagnosis: Possible seizure Acute alcoholic intoxication Alcoholism with impending DTs Rhabdomyolysis Hypomagnesemia Hospital Course: Patient is a 59-year-old male past medical history of alcohol-induced seizure activity, and anxiety who was brought in by EMS after his friend found him unresponsive in their hotel room. In the ER he was found to be confused but he was awake. He arrived with the smell of alcohol on his breath. He has been drinking fairly heavily recently. In the emergency department he underwent an extensive evaluation. He had a mildly elevated CPK with suspicion for possible impending rhabdo. Patient feels as though he may have had a seizure, however this was not confirmed and he may have passed out secondary to alcoholism. He was also found have a low magnesium level. He was given IV fluids, Ativan, and magnesium. He is admitted for further monitoring. After admission he did not develop any signs of alcohol withdrawal. He was awake alert and oriented on the morning of 12/19/2019. He is complaining of some leg cramping. His CPKs continued to downtrend. We discussed whether or not he should detox and alcohol during his hospital stay, however he does not have any intentions of stopping drinking. He recounts that his daughter was admitted her with an automobile accident this October which caused him to lose his sobriety of 90 days. He is currently homeless and he was provided information on shelters. He was determined stable for discharge. He should continue to intake water or Gatorade substances at home to help with his muscle pain. He reports that he is out of his Keppra and gabapentin. 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 He was admitted here 11/12 for possible seizure activity. At that point in time he was seen by neurology who recommended continuing his Keppra, abstaining from alcohol, and not driving for 6 months. He had an EEG done which showed no seizure activity. Patient was discharged from the hospital. Patient seen and examined at bedside. Complains of some lower extremity cramping and feeling sore over similar 20s had seizures in the past. Does not have any plans on stopping drinking. States he wants to see in the hospital so he can take a shower and feels slightly sharper. Offered inpatient detox if he is ready and willing to stop drinking however patient indicates that he has no intentions of quitting drinking. Vital signs reviewed and stable. General: non toxic, no distress, appears at stated age Derm: warm, dry Head: atraumatic, normocephalic, symmetric Eyes: EOMI, no lid lag, anicteric sclera Mouth: no lip lesion, mucus membranes moist Cardiovascular: S1S2 reg, no murmur, positive posterior tibial pulse bilateral, Lungs: CTA bilateral, no rhonchi, no rales , no accessory muscle use Abdominal: soft, nontender to palpation, no guarding, no appreciable organomegaly Ext: no gross muscle atrophy, no edema, no contractures Neuro: CN II-XI grossly intact, no focal neuro deficits Psych: Alert, oriented, appropriate affect A total of 25 minutes of time were spent preparing this complex discharge summary . Patient Condition at Discharge: Stable Plan - Discharge Summary Discharge Rx Participant: Yes New Discharge Prescriptions: Continue Albuterol Inhaler [Ventolin Hfa Inhaler] 2 puff INHALATION RT-Q8H PRN PRN Reason: Shortness Of Breath traZODone HCL 150 mg PO HS Tamsulosin HCl [Flomax] 0.4 mg PO BID LORazepam [Ativan] 2 mg PO HS Folic Acid 1 mg PO DAILY@1200 #30 tab levETIRAcetam [Keppra] 500 mg PO Q12HR #60 tab Gabapentin [Neurontin] 600 mg PO QID #28 cap Changed Thiamine [Vitamin B-1] 100 mg PO DAILY #30 tab Discontinued Multivitamins, Thera [Multivitamin (formulary)] 1 each PO DAILY@1200 #30 tab Discharge Medication List Albuterol Inhaler [Ventolin Hfa Inhaler] 2 puff INHALATION RT-Q8H PRN 11/11/19 [History] LORazepam [Ativan] 2 mg PO HS 11/11/19 [History] Tamsulosin HCl [Flomax] 0.4 mg PO BID 11/11/19 [History] traZODone HCL 150 mg PO HS 11/11/19 [History] Folic Acid 1 mg PO DAILY@1200 #30 tab 12/19/19 [Rx] Gabapentin [Neurontin] 600 mg PO QID #28 cap 12/19/19 [Rx] Thiamine [Vitamin B-1] 100 mg PO DAILY #30 tab 12/19/19 [Rx] levETIRAcetam [Keppra] 500 mg PO Q12HR #60 tab 12/19/19 [Rx] Follow up Appointment(s)/Referral(s): Tamanna Barbosa DO [Primary Care Provider] - 1-2 days Activity/Diet/Wound Care/Special Instructions: Activity: as tolerated Diet: regular Special Instructions: Stop drinking alcohol Please increase your consumption of water or Gatorade for the next 4 days. No driving until seizure free for 6 months Discharge Disposition: HOME SELF-CARE
== END 2019-12-19 16:16 | disposition home or self-care (01) ==
LOC: EC 13:59 → INTOOBSV 17:43 → 5NMEDONC 17:43 → UNDODISIN 12-19 16:16
PROVIDERS: ADMIT Internal Medicine; ATTEND Internal Medicine
DX: F10.221 Alcohol dependence with intoxication delirium (principal); Y90.8 Blood alcohol level of 240 mg/100 ml or more; E86.0 Dehydration; M62.82 Rhabdomyolysis; E83.42 Hypomagnesemia; G40.909 Epilepsy, unspecified, not intractable, without status epilepticus; F41.9 Anxiety disorder, unspecified; F32.9 Major depressive disorder, single episode, unspecified; F17.200 Nicotine dependence, unspecified, uncomplicated; Z79.899 Other long term (current) drug therapy; Z79.891 Long term (current) use of opiate analgesic; Z96.652 Presence of left artificial knee joint; Z96.641 Presence of right artificial hip joint
CPT/HCPCS: 96376; 96366 ×3; 96372 ×3; 82075; 96368; 96365; 96375; 99285; 36415; 80053 ×2; 80048; 80177; 82550 ×2; 83735 ×2; 85025; G0378 ×2; G0480; S4990 ×2; J2060 ×2; J1644 ×2; J3411; J3475; 80320

== ENCOUNTER 2019-12-21 11:15 | Inpatient (IN) | payer MEDICARE ==
[2019-12-21] MEDS ORDERED: SODIUM CHLORIDE 0.9% 1,000 ML IV STA ×2 (11:41)
[2019-12-21] MEDS ORDERED: LORazepam 2 MG/ML INJ IV STA (11:41)
[2019-12-21 12:10] LABS: Anisocytosis Slight; Basophils % (A) 0 %; Eosinophils # (A) 0.5 k/uL (0-0.7); Eosinophils % (A) 11 %; HCT 39.1 % (39.0-53.0); HGB 12.5 gm/dL (13.0-17.5); Lymphocytes # (A) 1.5 k/uL (1.0-4.8); Lymphocytes % (A) 33 %; MCH 31.2 pg (25.0-35.0); MCHC 31.9 g/dL (31.0-37.0); MCV 97.8 fL (80.0-100.0); Macrocytosis Slight; Mean Platelet Volume 6.7; Monocytes # (A) 0.3 k/uL (0-1.0); Monocytes % (A) 6 %; Neutrophils # (A) 2.1 k/uL (1.3-7.7); Neutrophils % (A) 45 %; Platelet Count 212 k/uL (150-450); RDW 16.5 % (11.5-15.5); WBC 4.5 k/uL (3.8-10.6)
[2019-12-21 12:23] LABS: ALT 34 U/L (4-49); AST 78 U/L (17-59); African American GFR (CKD) >90 (>60 ml/min/1.73 sqM); Albumin 3.7 g/dL (3.5-5.0); Alkaline Phosphatase 59 U/L (38-126); Amylase 51 U/L (30-110); Anion Gap 10 mmol/L; Blood Urea Nitrogen 14 mg/dL (9-20); Calcium 8.8 mg/dL (8.4-10.2); Carbon Dioxide 27 mmol/L (22-30); Chloride 108 mmol/L (98-107); Glucose 81 mg/dL (74-99); Magnesium 1.4 mg/dL (1.6-2.3); Non-African American GFR(CKD) >90 (>60 ml/min/1.73 sqM); Potassium 4.4 mmol/L (3.5-5.1); Sodium 145 mmol/L (137-145); Total Bilirubin 0.6 mg/dL (0.2-1.3); Total Protein 6.6 g/dL (6.3-8.2)
[2019-12-21 12:32] LABS: Prothrombin Time 10.1 sec (9.0-12.0)
[2019-12-21 12:54] LABS: Alcohol 348 mg/dL
--- NOTE | 2019-12-21 13:13 | ED ---
General Adult HPI - General Source: patient, EMS, RN notes reviewed, old records reviewed Mode of arrival: EMS Limitations: altered mental status, physical limitation <Leanna Jerome - Last Filed: 12/21/19 14:09> <Christiano Tirado - Last Filed: 12/21/19 14:22> - General Chief complaint: Alcohol Stated complaint: seizure, alcohol Time Seen by Provider: 12/21/19 11:27 - History of Present Illness Initial comments: Patient is a 59-year-old male history of alcoholism. Presents emergency department today from days and hotel EMS for complaint for seizure and alcohol intoxication. Was discharged from the hospital approximately 2 days ago for similar episode. Patient states that when he returned back to the hotel he continued drinking. Patient reports no falls. (Leanna Jerome) - Related Data Home Medications Medication Instructions Recorded Confirmed Albuterol Inhaler [Ventolin Hfa 2 puff INHALATION RT-Q8H PRN 11/11/19 12/18/19 Inhaler] LORazepam [Ativan] 2 mg PO HS 11/11/19 12/18/19 Tamsulosin HCl [Flomax] 0.4 mg PO BID 11/11/19 12/18/19 traZODone HCL 150 mg PO HS 11/11/19 12/18/19 Previous Rx's Medication Instructions Recorded Folic Acid 1 mg PO DAILY@1200 #30 tab 12/19/19 Gabapentin [Neurontin] 600 mg PO QID #28 cap 12/19/19 Thiamine [Vitamin B-1] 100 mg PO DAILY #30 tab 12/19/19 levETIRAcetam [Keppra] 500 mg PO Q12HR #60 tab 12/19/19 Allergies Allergy/AdvReac Type Severity Reaction Status Date / Time No Known Allergies Allergy Verified 12/18/19 21:08 Review of Systems ROS Other: All systems not noted in ROS Statement are negative. <Leanna Jerome - Last Filed: 12/21/19 14:09> ROS Other: All systems not noted in ROS Statement are negative. <Christiano Tirado - Last Filed: 12/21/19 14:22> ROS Statement: Those systems with pertinent positive or pertinent negative responses have been documented in the HPI. Past Medical History Past Medical History: Osteoarthritis (OA), Pneumonia, Seizure Disorder Additional Past Medical History / Comment(s): seizure from etoh states drank last night and had seizure this am patient believes, enlarged prostate takes flomax, per pt scissors went into his right eye years ago and pupil is distorted and irregular in shape, he says it is very very blurry out of that eye. Last admission was in ICU on a ventilator. History of Any Multi-Drug Resistant Organisms: None Reported Past Surgical History: Joint Replacement, Orthopedic Surgery Additional Past Surgical History / Comment(s): 3 l knee replacement r hip Past Anesthesia/Blood Transfusion Reactions: No Reported Reaction Past Psychological History: Anxiety, Depression Smoking Status: Current every day smoker Past Alcohol Use History: Abuse, Daily, Heavy Past Drug Use History: None Reported - Past Family History Family Family Medical History: Unable to Obtain <Leanna Jerome - Last Filed: 12/21/19 14:09> General Exam Limitations: altered mental status, physical limitation General appearance: alert, in no apparent distress Head exam: Present: atraumatic, normocephalic, normal inspection Eye exam: Present: normal appearance, PERRL, EOMI. Absent: scleral icterus, conjunctival injection, periorbital swelling ENT exam: Present: normal exam, mucous membranes moist Neck exam: Present: normal inspection. Absent: tenderness, meningismus, lymphadenopathy Respiratory exam: Present: normal lung sounds bilaterally. Absent: respiratory distress, wheezes, rales, rhonchi, stridor Cardiovascular Exam: Present: regular rate, normal rhythm, normal heart sounds. Absent: systolic murmur, diastolic murmur, rubs, gallop, clicks GI/Abdominal exam: Present: soft, normal bowel sounds. Absent: distended, tenderness, guarding, rebound, rigid Extremities exam: Present: normal inspection, full ROM, normal capillary refill. Absent: tenderness, pedal edema, joint swelling, calf tenderness Back exam: Present: normal inspection Neurological exam: Present: alert, oriented X3, CN II-XII intact Psychiatric exam: Present: normal affect, normal mood Skin exam: Present: warm, dry, intact, normal color. Absent: rash <Leanna Jerome - Last Filed: 12/21/19 14:09> - General Exam Comments Initial Comments: Is a 59-year-old male, intoxicated. Patient appears in no distress. (Leanna Jerome) Course <Christiano Tirado - Last Filed: 12/21/19 14:22> Vital Signs 12/21/19 12/21/19 12/21/19 11:19 12:00 13:30 Temperature 97.8 F Pulse Rate 75 62 73 Respiratory 18 18 18 Rate Blood Pressure 130/72 128/80 144/94 O2 Sat by Pulse 93 L 92 L 96 Oximetry - Reevaluation(s) Reevaluation #1: 12/21/19 14:21 PA supervision: I personally evaluate this case patient does present with complaints consistent with alcohol intoxication and possible seizure he's also demonstrate evidence of hypomagnesemia. The case is discussed with Dr. Lazaro who is on city call for medicine. Patient be admitted and evaluated. ( Christiano Tirado) Medical Decision Making - Lab Data Result diagrams: 12/21/19 11:57 12/21/19 11:57 <Leanna Jerome - Last Filed: 12/21/19 14:09> - Lab Data Result diagrams: 12/21/19 11:57 12/21/19 11:57 <Christiano Tirado - Last Filed: 12/21/19 14:22> - Medical Decision Making Patient is a 9-year-old male, who presents emergency department. PATIENT. Patient reportedly has had history of seizure disorder related to EtOH abuse. He states that he had a possible seizure. EMS was called to his hotel racing. Upon arrival he has no head injuries or complaints no falls. He is tired stating he hasn't been sleeping well. Patient states he has been feeling somewhat shaky, feels he needs Ativan. He states that he drank a pint last night. Lab work was reviewed Patient was given IV fluids. Alcohol level is elevated at 348. Patient will be admitted at this time with under Dr. Lazaro. Discussed with Dr. Tirado. (Leanna Jerome) - Lab Data Lab Results 12/21/19 12/21/19 12/21/19 Range/Units 11:57 11:57 11:57 WBC 4.5 (3.8-10.6) k/uL RBC 4.00 L (4.30-5.90) m/uL Hgb 12.5 L (13.0-17.5) gm/dL Hct 39.1 (39.0-53.0) % MCV 97.8 (80.0-100.0) fL MCH 31.2 (25.0-35.0) pg MCHC 31.9 (31.0-37.0) g/dL RDW 16.5 H (11.5-15.5) % Plt Count 212 (150-450) k/uL Neutrophils % 45 % Lymphocytes % 33 % Monocytes % 6 % Eosinophils % 11 % Basophils % 0 % Neutrophils # 2.1 (1.3-7.7) k/uL Lymphocytes # 1.5 (1.0-4.8) k/uL Monocytes # 0.3 (0-1.0) k/uL Eosinophils # 0.5 (0-0.7) k/uL Basophils # 0.0 (0-0.2) k/uL Anisocytosis Slight Macrocytosis Slight PT 10.1 (9.0-12.0) sec INR 1.0 (<1.2) Sodium 145 (137-145) mmol/L Potassium 4.4 (3.5-5.1) mmol/L Chloride 108 H (98-107) mmol/L Carbon Dioxide 27 (22-30) mmol/L Anion Gap 10 mmol/L BUN 14 (9-20) mg/dL Creatinine 0.87 (0.66-1.25) mg/dL Est GFR (CKD-EPI)AfAm >90 (>60 ml/min/1.73 sqM) Est GFR (CKD-EPI)NonAf >90 (>60 ml/min/1.73 sqM) Glucose 81 (74-99) mg/dL Calcium 8.8 (8.4-10.2) mg/dL Magnesium 1.4 L (1.6-2.3) mg/dL Total Bilirubin 0.6 (0.2-1.3) mg/dL AST 78 H (17-59) U/L ALT 34 (4-49) U/L Alkaline Phosphatase 59 (38-126) U/L Total Protein 6.6 (6.3-8.2) g/dL Albumin 3.7 (3.5-5.0) g/dL Amylase 51 (30-110) U/L Lipase 63 (23-300) U/L Serum Alcohol 348 H* mg/dL Disposition Is patient prescribed a controlled substance at d/c from ED?: No Time of Disposition: 14:12 <Leanna Jerome Last Filed: 12/21/19 14:09> <Christiano Tirado - Last Filed: 12/21/19 14:22> Clinical Impression: Seizure, Alcoholic intoxication, Hypomagnesemia Disposition: ADMITTED IP TO THIS HOSP Condition: Stable Referrals: None,Stated [Primary Care Provider] - 1-2 days
[2019-12-21] MEDS ORDERED: MAGNESIUM SULFATE-D5W PMX 1 GM in DEXTROSE/WATER 1 100ML.BAG IVPB ONE (14:11)
[2019-12-21] MEDS ORDERED: ACETAMINOPHEN TAB 325 MG TAB PO PRN (14:42)
[2019-12-21] MEDS ORDERED: IBUPROFEN 400 MG TAB PO PRN (14:42)
[2019-12-21] MEDS ORDERED: NALOXONE 0.4 MG/ML 1 ML VIAL IV PRN (14:42)
[2019-12-21] MEDS ORDERED: MORPHINE SULFATE 4 MG/ML SYRINGE IV PRN (14:42)
--- NOTE | 2019-12-21 15:20 | P.HPIM ---
History of Present Illness This is a pleasant tenderness old male with past medical history of alcohol abuse, alcohol withdrawal, seizure disorder, BPH. Patient was in the hospital twice, who was admitted on 11/11/19 to the ICU for respiratory failure related to his alcohol problem and delirium tremens, status post extubation, readmitted again on 12/18/19-12/19/23 for similar problems. Patient was in the motel, he was drinking 1 pint of liquor, this morning a still some flashes of light followed by cold sweats and he had to lie down for half an hour, after that he woke up thinking he had a seizure was looking for seizure medication and he could not find them so he called 911. Patient states there was no medical syndrome. Patient says that he was not taking his seizure medication because he did not have money. Patient admits to drinking alcohol as above, he smokes about 1.0 pack per day. No illicit tracts. Patient denies suicidal ideation Patient is still in me he is willing to quit alcohol Vitals stable. Left showing unremarkable CBC, INR, BMP. Magnesium is low as 1.4, liver enzymes AST is mildly elevated at 78. Serum Alcohol Level Is High at 348 MAPS was checked, he is on gabapentin 600 mg and diazepam 60 tablets in 3 days Review of Systems CONSTITUTIONAL: No fever, no malaise, no fatigue. HEENT: No recent visual problems or hearing problems. Denied any sore throat. CARDIOVASCULAR: No orthopnea, PND, no palpitations, no syncope. PULMONARY: No shortness of breath, no cough, no hemoptysis. GASTROINTESTINAL: No diarrhea, no nausea, no vomiting, no abdominal pain. Normoactive bowel sounds. NEUROLOGICAL: No headaches, no weakness, no numbness. HEMATOLOGICAL: Denies any bleeding or petechiae. GENITOURINARY: Denies any burning micturition, frequency, or urgency. MUSCULOSKELETAL/RHEUMATOLOGICAL: Denies any joint pain, swelling, or any muscle pain. ENDOCRINE: Denies any polyuria or polydipsia. Past Medical History Past Medical History: Osteoarthritis (OA), Pneumonia, Seizure Disorder Additional Past Medical History / Comment(s): seizure from etoh states drank last night and had seizure this am patient believes, enlarged prostate takes flomax, per pt scissors went into his right eye years ago and pupil is distorted and irregular in shape, he says it is very very blurry out of that eye. Last admission was in ICU on a ventilator. History of Any Multi-Drug Resistant Organisms: None Reported Past Surgical History: Joint Replacement, Orthopedic Surgery Additional Past Surgical History / Comment(s): 3 l knee replacement r hip Past Anesthesia/Blood Transfusion Reactions: No Reported Reaction Past Psychological History: Anxiety, Depression Smoking Status: Current every day smoker Past Alcohol Use History: Abuse, Daily, Heavy Past Drug Use History: None Reported - Past Family History Family Family Medical History: Unable to Obtain Medications and Allergies Home Medications Medication Instructions Recorded Confirmed Type Albuterol Inhaler [Ventolin Hfa 2 puff INHALATION RT-Q8H PRN 11/11/19 12/21/19 History Inhaler] LORazepam [Ativan] 2 mg PO HS 11/11/19 12/21/19 History Tamsulosin HCl [Flomax] 0.4 mg PO BID 11/11/19 12/21/19 History traZODone HCL 150 mg PO HS 11/11/19 12/21/19 History Folic Acid 1 mg PO DAILY@1200 #30 tab 12/19/19 12/21/19 Rx Gabapentin [Neurontin] 600 mg PO QID #28 cap 12/19/19 12/21/19 Rx Thiamine [Vitamin B-1] 100 mg PO DAILY #30 tab 12/19/19 12/21/19 Rx levETIRAcetam [Keppra] 500 mg PO Q12HR #60 tab 12/19/19 12/21/19 Rx Allergies Allergy/AdvReac Type Severity Reaction Status Date / Time No Known Allergies Allergy Verified 12/21/19 14:53 Physical Exam Vitals: Vital Signs Temp Pulse Resp BP Pulse Ox 12/21/19 13:30 73 18 144/94 96 12/21/19 12:00 62 18 128/80 92 L 12/21/19 11:19 97.8 F 75 18 130/72 93 L Intake and Output 12/20/19 12/21/19 12/21/19 22:59 06:59 14:59 Other: Weight 79.379 kg GENERAL: The patient is alert and oriented x3, not in any acute distress. Well developed, well nourished. HEENT: Pupils are round and equally reacting to light. EOMI. No scleral icterus. No conjunctival pallor. Normocephalic, atraumatic. No pharyngeal erythema. No thyromegaly. CARDIOVASCULAR: S1 and S2 present. No murmurs, rubs, or gallops. PULMONARY: Chest is clear to auscultation, no wheezing or crackles. ABDOMEN: Soft, nontender, nondistended, normoactive bowel sounds. No palpable organomegaly. MUSCULOSKELETAL: No joint swelling or deformity. EXTREMITIES: No cyanosis, clubbing, or pedal edema. NEUROLOGICAL: Gross neurological examination did not reveal any focal deficits. SKIN: No rashes. No petechiae Results CBC & Chem 7: 12/21/19 11:57 12/21/19 11:57 Labs: Abnormal Lab Results - Last 24 Hours (Table) 12/21/19 12/21/19 Range/Units 11:57 11:57 RBC 4.00 L (4.30-5.90) m/uL Hgb 12.5 L (13.0-17.5) gm/dL RDW 16.5 H (11.5-15.5) % Chloride 108 H (98-107) mmol/L Magnesium 1.4 L (1.6-2.3) mg/dL AST 78 H (17-59) U/L Serum Alcohol 348 H* mg/dL Assessment and Plan Assessment: Alcohol abuse and withdrawal Possible seizure, with a known history of seizure disorder On entrance to medication Hypomagnesemia benign prostatic hypertrophy Plan: This is a pleasant 59 years old male who presents with alcohol abuse and withdrawal. Continue with CIWA protocol, thiamine. Neuro consult. Resume Keppra and ativan. I will call health and social care teacher consult. Labs and medication were reviewed.. Continue same treatment. Continue with symptomatic treatment. Resume home medication. Monitor lytes and vitals. DVT and GI prophylaxis. Further recommendations of the clinical course of the patie nt DVT prophylaxis: Subcutaneous heparin GI Prophylaxis: Pepcid PT/OT: Pending Prognosis is guarded
[2019-12-21] MEDS: THIAMINE 100 MG in SODIUM CHLORIDE 0.9% 50 ML IVPB SCH (16:13)
[2019-12-21] MEDS: GABAPENTIN 300 MG CAP PO SCH ×2 (17:16→19:59)
[2019-12-21] MEDS: traZODone HCL 50 MG TAB PO SCH (19:59)
[2019-12-21] MEDS: TAMSULOSIN 0.4 MG CAP.ER.24H PO SCH (19:59)
[2019-12-21] MEDS: LORazepam 1 MG TAB PO SCH (19:59)
[2019-12-21] MEDS: levETIRAcetam 500 MG TAB PO SCH (21:35)
[2019-12-22 06:26] LABS: Appearance,Urine Clear (Clear); Bilirubin,Urine Negative (Negative); Blood,Urine Negative (Negative); Color,Urine Yellow; Glucose,Urine (UA) Negative (Negative); Hyaline Casts,Urine 3 /lpf (0-2); Ketones,Urine Trace (Negative); Leukocyte Esterase,Urine Negative (Negative); Mucus,Urine Rare /hpf; Nitrite,Urine Negative (Negative); PH, Urine 5.5 (5.0-8.0); Protein,Urine 1+ (Negative); RBC,Urine <1 /hpf (0-5); Specific Gravity,Urine 1.016 (1.001-1.035); Urobilinogen,Urine <2.0 mg/dL (<2.0); WBC,Urine <1 /hpf (0-5)
[2019-12-22 06:33] LABS: Amphetamine Screen,Urine Not Detected (NotDetected); Barbiturate Screen,Urine Not Detected (NotDetected); Benzodiazepines Screen,Urine Detected (NotDetected); Cocaine Screen,Urine Not Detected (NotDetected); Methadone Screen, Urine Not Detected (NotDetected); Opiate Screen,Urine Not Detected (NotDetected); Oxycodone Screen, Urine Not Detected (NotDetected); Phencyclidine Screen,Urine Not Detected (NotDetected); Tricyclic Antidepressant,Urine Not Detected (NotDetected); Urn Cannabinoid Scrn Not Detected (NotDetected)
[2019-12-22 07:06] LABS: Anisocytosis Slight; Basophils % (A) 1 %; Eosinophils # (A) 0.5 k/uL (0-0.7); Eosinophils % (A) 9 %; HCT 37.9 % (39.0-53.0); HGB 12.2 gm/dL (13.0-17.5); Lymphocytes % (A) 17 %; MCH 31.4 pg (25.0-35.0); MCHC 32.1 g/dL (31.0-37.0); MCV 97.7 fL (80.0-100.0); Mean Platelet Volume 6.8; Monocytes # (A) 0.4 k/uL (0-1.0); Monocytes % (A) 6 %; Neutrophils # (A) 3.8 k/uL (1.3-7.7); Neutrophils % (A) 65 %; Platelet Count 184 k/uL (150-450); RBC 3.89 m/uL (4.30-5.90); RDW 16.2 % (11.5-15.5); WBC 5.8 k/uL (3.8-10.6)
[2019-12-22 07:12] LABS: African American GFR (CKD) >90 (>60 ml/min/1.73 sqM); Anion Gap 8 mmol/L; Blood Urea Nitrogen 16 mg/dL (9-20); Calcium 8.8 mg/dL (8.4-10.2); Carbon Dioxide 24 mmol/L (22-30); Chloride 109 mmol/L (98-107); Glucose 66 mg/dL (74-99); Magnesium 1.3 mg/dL (1.6-2.3); Non-African American GFR(CKD) >90 (>60 ml/min/1.73 sqM); Potassium 4.4 mmol/L (3.5-5.1); Sodium 141 mmol/L (137-145)
[2019-12-22] MEDS: GABAPENTIN 300 MG CAP PO SCH ×4 (08:29→20:31)
[2019-12-22] MEDS: levETIRAcetam 500 MG TAB PO SCH ×2 (08:29→20:30)
[2019-12-22] MEDS: THIAMINE 100 MG in SODIUM CHLORIDE 0.9% 50 ML IVPB SCH (08:30)
[2019-12-22] MEDS: TAMSULOSIN 0.4 MG CAP.ER.24H PO SCH ×2 (08:30→20:30)
[2019-12-22] MEDS ORDERED: PANTOPRAZOLE 40 MG/10 ML VIAL IV SCH (09:00)
--- NOTE | 2019-12-22 10:58 | P.PN ---
Subjective This is a pleasant tenderness old male with past medical history of alcohol abuse, alcohol withdrawal, seizure disorder, BPH. Patient was in the hospital twice, who was admitted on 11/11/19 to the ICU for respiratory failure related to his alcohol problem and delirium tremens, status post extubation, readmitted again on 12/18/19-12/19/23 for similar problems. Patient was in the motel, he was drinking 1 pint of liquor, this morning a still some flashes of light followed by cold sweats and he had to lie down for half an hour, after that he woke up thinking he had a seizure was looking for seizure medication and he could not find them so he called 911. Patient states there was no medical syndrome. Patient says that he was not taking his seizure medication because he did not have money. Patient admits to drinking alcohol as above, he smokes about 1.0 pack per day. No illicit tracts. Patient denies suicidal ideation Patient is still in me he is willing to quit alcohol Vitals stable. Left showing unremarkable CBC, INR, BMP. Magnesium is low as 1.4, liver enzymes AST is mildly elevated at 78. Serum Alcohol Level Is High at 348 MAPS was checked, he is on gabapentin 600 mg and diazepam 60 tablets in 3 days 12/22/2019 Patient is more awake and alert today, no more seizure-like activity. No other symptoms like no chest pain or dizziness. Patient otherwise states that sometimes he feels depressed is not depressed currently also he denies suicidal and homicidal ideation, no delusions or hallucinations. Discussed the case with the patient had a social work lecturer at bedside, he says that he takes Keppra and Ativan at home and he was not just taking his Keppra for the last 2 days, probably due to drinking. He states he takes gabapentin for his leg pains for many years and has not for seizure, he states that he lost his gabapentin, social work lecturer checked it with the pharmacy and he has a referral for gabapentin due on 12/28. However patient medically not clear for discharge today, continue seizure medication, continue with [facility] protocol. Follow-up with her neurologist (Vitals are stable, CBC is stable. BMP is unremarkable, magnesium is low at 1.3 which is is been replaced). Patient still wants to quit drinking alcohol Discussed with staff, review of systems CONSTITUTIONAL: No fever, no malaise, no fatigue. HEENT: No recent visual problems or hearing problems. Denied any sore throat. CARDIOVASCULAR: No orthopnea, PND, no palpitations, no syncope. PULMONARY: No shortness of breath, no cough, no hemoptysis. GASTROINTESTINAL: No diarrhea, no nausea, no vomiting, no abdominal pain. Normoactive bowel sounds. NEUROLOGICAL: No headaches, no weakness, no numbness. HEMATOLOGICAL: Denies any bleeding or petechiae. GENITOURINARY: Denies any burning micturition, frequency, or urgency. MUSCULOSKELETAL/RHEUMATOLOGICAL: Denies any joint pain, swelling, or any muscle pain. ENDOCRINE: Denies any polyuria or polydipsia. Active Medications Generic Name Dose Route Start Last Admin Trade Name Freq PRN Reason Stop Dose Admin Acetaminophen 650 mg 12/21/19 14:42 Tylenol Tab PO Q6HR PRN Mild Pain or Fever > 100.5 Folic Acid 1 mg 12/22/19 12:00 Folic Acid PO DAILY@1200 RHEA Gabapentin 600 mg 12/21/19 18:00 12/22/19 08:29 Neurontin PO 600 mg QID RHEA Administration Thiamine HCl 100 mg/ Sodium 51 mls @ 100 mls/hr 12/21/19 15:30 12/22/19 08:30 Chloride IVPB 100 mls/hr DAILY RHEA Administration Ibuprofen 400 mg 12/21/19 14:42 Motrin PO Q6HR PRN Mild Pain or Fever > 100.5 Levetiracetam 500 mg 12/21/19 21:00 12/22/19 08:29 Keppra PO 500 mg Q12HR RHEA Administration Lorazepam 0.5 mg 12/21/19 14:42 Ativan PO Q6HR PRN Anxiety Lorazepam 2 mg 12/21/19 21:00 12/21/19 19:59 Ativan PO 2 mg HS RHEA Administration Morphine Sulfate 4 mg 12/21/19 14:42 Morphine Sulfate (Inj) IV Q4HR PRN Severe Pain Naloxone HCl 0.2 mg 12/21/19 14:42 Narcan IV Q2M PRN Opioid Reversal Pantoprazole Sodium 40 mg 12/22/19 09:00 12/22/19 08:30 Protonix IV 40 mg DAILY RHEA Administration Tamsulosin HCl 0.4 mg 12/21/19 21:00 12/22/19 08:30 Flomax PO 0.4 mg BID RHEA Administration Trazodone HCl 150 mg 12/21/19 21:00 12/21/19 19:59 Desyrel PO 150 mg HS RHEA Administration Objective - Vital Signs Vital signs: Vital Signs Temp 98.0 F 12/22/19 07:00 Pulse 63 12/22/19 07:00 Resp 16 12/22/19 07:00 BP 140/78 12/22/19 07:00 Pulse Ox 93 L 12/22/19 07:00 Intake & Output 12/21/19 12/22/19 12/22/19 18:59 06:59 18:59 Intake Total 296 20 Balance 296 20 Weight 79.379 kg Intake: Oral 296 20 Other: Voiding Method Toilet Urinal # Voids 1 - Exam GENERAL: The patient is alert and oriented x3, not in any acute distress. Well developed, well nourished. HEENT: Pupils are round and equally reacting to light. EOMI. No scleral icterus. No conjunctival pallor. Normocephalic, atraumatic. No pharyngeal erythema. No thyromegaly. CARDIOVASCULAR: S1 and S2 present. No murmurs, rubs, or gallops. PULMONARY: Chest is clear to auscultation, no wheezing or crackles. ABDOMEN: Soft, nontender, nondistended, normoactive bowel sounds. No palpable organomegaly. MUSCULOSKELETAL: No joint swelling or deformity. EXTREMITIES: No cyanosis, clubbing, or pedal edema. NEUROLOGICAL: Gross neurological examination did not reveal any focal deficits. SKIN: No rashes. No petechiae - Labs CBC & Chem 7: 12/22/19 06:39 12/22/19 06:39 Labs: Abnormal Lab Results - Last 24 Hours (Table) 12/21/19 12/21/19 12/22/19 Range/Units 11:57 11:57 06:10 RBC 4.00 L (4.30-5.90) m/uL Hgb 12.5 L (13.0-17.5) gm/dL Hct (39.0-53.0) % RDW 16.5 H (11.5-15.5) % Chloride 108 H (98-107) mmol/L Glucose (74-99) mg/dL Magnesium 1.4 L (1.6-2.3) mg/dL AST 78 H (17-59) U/L Urine Protein 1+ H (Negative) Urine Ketones Trace H (Negative) Hyaline Casts 3 H (0-2) /lpf Urine Mucus Rare H (None) /hpf U Benzodiazepines Scrn Detected H (NotDetected) Serum Alcohol 348 H* mg/dL 12/22/19 12/22/19 Range/Units 06:39 06:39 RBC 3.89 L (4.30-5.90) m/uL Hgb 12.2 L (13.0-17.5) gm/dL Hct 37.9 L (39.0-53.0) % RDW 16.2 H (11.5-15.5) % Chloride 109 H (98-107) mmol/L Glucose 66 L (74-99) mg/dL Magnesium 1.3 L (1.6-2.3) mg/dL AST (17-59) U/L Urine Protein (Negative) Urine Ketones (Negative) Hyaline Casts (0-2) /lpf Urine Mucus (None) /hpf U Benzodiazepines Scrn (NotDetected) Serum Alcohol mg/dL Assessment and Plan Assessment: Alcohol abuse and withdrawal Possible seizure, with a known history of seizure disorder. Rule out alcohol withdrawal seizure Non-adherence to medication Hypomagnesemia benign prostatic hypertrophy Plan: This is a pleasant 59 years old male who presents with alcohol abuse and withdrawal. Continue with CIWA protocol, thiamine. Neuro consult. Resume K eppra and ativan. I will call social work lecturer consult. Labs and medication were reviewed.. Continue same treatment. Continue with symptomatic treatment. Resume home medication. Monitor lytes and vitals. DVT and GI prophylaxis. Further recommendations of the clinical course of the patient DVT prophylaxis: Subcutaneous heparin GI Prophylaxis: Pepcid PT/OT: Pending Prognosis is guarded
[2019-12-22] MEDS: LORazepam 0.5 MG TAB PO PRN ×2 (11:19→19:06)
[2019-12-22] MEDS: MAGNESIUM OXIDE 400 MG TAB PO SCH ×2 (11:19→20:30)
[2019-12-22] MEDS: MAGNESIUM SULFATE-D5W PMX 1 GM in DEXTROSE/WATER 1 100ML.BAG IVPB SCH ×2 (11:20→13:41)
[2019-12-22] MEDS ORDERED: FOLIC ACID 1 MG TAB PO SCH (12:00)
[2019-12-22 15:24] VITALS: RESP 18
--- NOTE | 2019-12-22 17:20 | P.CNNES ---
History of Present Illness Consult date: 12/22/19 Reason for Consult: Possible seizure History of Present Illness: HISTORY OF PRESENT ILLNESS: Thank you for allowing me to evaluate Mr. Kadeem Zelaya. Mr. Zelaya is a 59 year-old man with PMhx of EtOH abuse, seizures, osteoa rthritis, enlarged prostate, blurry R eye from trauma, presented to [facility] after a seizure episode. Patient lives at [facility] at this time. Patient states that he's been drinking about a pint of vodka everyday, last intake 2 days ago. patient with history of EtOH withdrawal seizures. Pt states that he also had seizures when he was a child, where there were moments of his mother having to clean up after himself. He's not very consistent with his story, but patient states he had been on Keppra for many years, and he has the medication at home, but he hasn't taken it for a while. Even when he takes it, he only takes it at night time because it causes sleepiness. Patient denies any headache, nausea, vomiting, dizziness, recent sickness, weakness, numbness or tingling. PAST MEDICAL HISTORY: EtOH abuse, seizures, osteoarthritis, enlarged prostate, blurry R eye from trauma PAST SURGICAL HISTORY: L knee replacement HOME MEDICATIONS: Trazodone, tamsulosin, folic acid, Keppra 500mg BID, gabapentin 600mg QID, thia mine 100mg qday ALLERGIES: NKDA SOCIAL HISTORY: Severe EtOH abuse, current everyday smoker REVIEW OF SYSTEMS: The 14 systems are reviewed and no additional points are identified compared to the review of systems documented history and physical PHYSICAL EXAMINATION: VITAL SIGNS: T 98.0 HR 63 RR 16 BP 140/78 O2 sat 93% on RA GEN.: NAD, pleasant and cooperative HEENT: NCAT, sclera without icterus NECK: Supple SKIN AND EXTREMITIES: Warm to touch, no edema NEURO: MENTAL STATUS: Patient alert and oriented to self, place, time. Able to name the current president. Speech fluent, able to name and repeat, following all commands readily. No right and left disorientation, neglect. CRANIAL NERVES II THROUGH XII: II: R pupil oddly shaped, with history of trauma to his R eye. Visual wolff are intact to confrontation III, IV, : No ptosis. Extraocular movements full. No nystagmus. V: Facial sensation intact from V1- 3. VII. No clear facial asymmetry. VIII: Hearing intact to finger rub bilaterally. IX, X: Symmetric palate elevation. XI: Shoulder shrug intact. XII: Tongue midline without fasciculation or atrophy. MOTOR: Normal bulk/tone. No pronator drift or tremor. Strength is 5/5 throughout all 4 extremities. SENSORY: Intact to light touch in all 4 extremities. REFLEXES: 1+ throughout. Toes are downgoing. COORDINATION: Finger to nose intact. No dysmetria. GAIT: not assessed DIAGNOSTIC TESTING: LABORATORY: WBC 5.8 Hgb 12.2 Platelet 184 Na 141 K 4.4 Cl 109 CO2 24 BUN 16 Cr 0.86 glucose 66 AST 78 ALT 34 AlkPhos 59 urinalysis negative UTox positive for benzo IMAGING: EEG 11/12/2020: Normal awake and drowsy EEG. CT Head w/o contrast 11/11/2019: Age-related atrophic and chronic small vessel ischemic change without acute intracranial process. ASSESSMENT: 59 year-old man with PMhx of EtOH abuse, seizures, osteoarthritis, enlarged prostate, blurry R eye from trauma, presented to [facility] after a seizure episode. This episode likely in setting of EtOH abuse/withdrawal. Patient reportedly with history of seizures since childhood. Patient is not driving. Most of his family is in [facility], and patient wondering if he can be seen by a psychiatrist because he feels down whenever he wakes up in the morning. No SI or HI. RECOMMENDATIONS: 1. No additional neurological work-up recommended at this time 2. Discussed with patient about the importance of quitting EtOH 3. Discussed seizure precautions with patient: Patient currently not driving, understands not to bathe, use heavy/dangerous machinery, climb ladders, swim 4. c/w home dose of Keppra 500mg BID 5. consider psychiatry consult 6. Neurology will sign off at this time. Please contact with additional questions or concerns. Past Medical History Past Medical History: Osteoarthritis (OA), Pneumonia, Seizure Disorder Additional Past Medical History / Comment(s): seizure from etoh states drank last night and had seizure this am patient believes, enlarged prostate takes flomax, per pt scissors went into his right eye years ago and pupil is distorted and irregular in shape, he says it is very very blurry out of that eye. Last admission was in ICU on a ventilator. History of Any Multi-Drug Resistant Organisms: None Reported Past Surgical History: Joint Replacement, Orthopedic Surgery Additional Past Surgical History / Comment(s): 3 l knee replacement r hip Past Anesthesia/Blood Transfusion Reactions: No Reported Reaction Past Psychological History: Anxiety, Depression Smoking Status: Current every day smoker Past Alcohol Use History: Abuse, Daily, Heavy Past Drug Use History: None Reported - Past Family History Family Family Medical History: Unable to Obtain Medications and Allergies Home Medications Medication Instructions Recorded Confirmed Type Albuterol Inhaler [Ventolin Hfa 2 puff INHALATION RT-Q8H PRN 11/11/19 12/21/19 History Inhaler] LORazepam [Ativan] 2 mg PO HS 11/11/19 12/21/19 History Tamsulosin HCl [Flomax] 0.4 mg PO BID 11/11/19 12/21/19 History traZODone HCL 150 mg PO HS 11/11/19 12/21/19 History Folic Acid 1 mg PO DAILY@1200 #30 tab 12/19/19 12/21/19 Rx Gabapentin [Neurontin] 600 mg PO QID #28 cap 12/19/19 12/21/19 Rx Thiamine [Vitamin B-1] 100 mg PO DAILY #30 tab 12/19/19 12/21/19 Rx levETIRAcetam [Keppra] 500 mg PO Q12HR #60 tab 12/19/19 12/21/19 Rx Allergies Allergy/AdvReac Type Severity Reaction Status Date / Time No Known Allergies Allergy Verified 12/21/19 14:53 Physical Examination - Vital Signs Vital Signs: Vital Signs Temp Pulse Pulse Resp BP BP Pulse Ox 12/22/19 07:00 98.0 F 63 16 140/78 93 L 12/22/19 01:25 97.8 F 96 144/66 92 L 12/21/19 19:15 97.9 F 73 138/66 95 12/21/19 16:10 97.8 F 64 18 144/78 95 12/21/19 15:00 57 L 18 131/87 95 Intake and Output 12/21/19 12/22/19 12/22/19 22:59 06:59 14:59 Intake Total 316 Balance 316 Intake: Oral 316 Other: Voiding Method Toilet Urinal # Voids 1 1 Weight 79.379 kg Results - Laboratory Findings CBC and BMP: 12/22/19 06:39 12/22/19 06:39 Abnormal Lab Findings: Abnormal Labs 12/21/19 12/21/19 12/22/19 11:57 11:57 06:10 RBC 4.00 L Hgb 12.5 L Hct RDW 16.5 H Chloride 108 H Glucose Magnesium 1.4 L AST 78 H Urine Protein 1+ H Urine Ketones Trace H Hyaline Casts 3 H Urine Mucus Rare H U Benzodiazepines Scrn Detected H Serum Alcohol 348 H* 12/22/19 12/22/19 06:39 06:39 RBC 3.89 L Hgb 12.2 L Hct 37.9 L RDW 16.2 H Chloride 109 H Glucose 66 L Magnesium 1.3 L AST Urine Protein Urine Ketones Hyaline Casts Urine Mucus U Benzodiazepines Scrn Serum Alcohol
[2019-12-22] MEDS: LORazepam 1 MG TAB PO SCH (20:30)
[2019-12-22] MEDS: traZODone HCL 50 MG TAB PO SCH (20:33)
[2019-12-23 03:30] VITALS: TEMP 98.1
[2019-12-23 07:05] VITALS: BP 144/77; PULSE 58
[2019-12-23] MEDS ORDERED: PANTOPRAZOLE 40 MG TABLET PO SCH (07:30)
[2019-12-23 07:50] LABS: African American GFR (CKD) >90 (>60 ml/min/1.73 sqM); Anion Gap 4 mmol/L; Blood Urea Nitrogen 16 mg/dL (9-20); Calcium 9.1 mg/dL (8.4-10.2); Carbon Dioxide 30 mmol/L (22-30); Chloride 104 mmol/L (98-107); Glucose 109 mg/dL (74-99); Magnesium 1.5 mg/dL (1.6-2.3); Non-African American GFR(CKD) >90 (>60 ml/min/1.73 sqM); Potassium 4.2 mmol/L (3.5-5.1); Sodium 138 mmol/L (137-145)
[2019-12-23] MEDS: MAGNESIUM OXIDE 400 MG TAB PO SCH (08:59)
[2019-12-23] MEDS: levETIRAcetam 500 MG TAB PO SCH (08:59)
[2019-12-23] MEDS: GABAPENTIN 300 MG CAP PO SCH (08:59)
[2019-12-23] MEDS: THIAMINE 100 MG in SODIUM CHLORIDE 0.9% 50 ML IVPB SCH (08:59)
[2019-12-23] MEDS: TAMSULOSIN 0.4 MG CAP.ER.24H PO SCH (08:59)
[2019-12-23] MEDS: MAGNESIUM SULFATE-D5W PMX 1 GM in DEXTROSE/WATER 1 100ML.BAG IVPB SCH ×2 (10:04→11:12)
--- NOTE | 2019-12-23 21:58 | P.DS ---
Providers Date of admission: 12/21/19 14:22 Attending physician: Ankit Lazaro MD Consults: 12/21/19 15:12 Consult Physician Routine Consulting Provider: Rona Akbar Consult Reason/Comments: Possible seizure Do you want consulting provider notified?: Yes Primary care physician: Stated None Hospital Course: please note pt signed leaving AMA Diagnoses: Alcohol abuse and withdrawal Possible seizure, with a known history of seizure disorder. Rule out alcohol withdrawal seizure Non-adherence to medication Hypomagnesemia benign prostatic hypertrophy Hospital course: This is a pleasant tenderness old male with past medical history of alcohol abuse, alcohol withdrawal, seizure disorder, BPH. Patient was in the hospital twice, who was admitted on 11/11/19 to the ICU for respiratory failure related to his alcohol problem and delirium tremens, status post extubation, readmitted again on 12/18/19-12/19/23 for similar problems. Patient was in the motel, he was drinking 1 pint of liquor, this morning a still some flashes of light followed by cold sweats and he had to lie down for half an hour, after that he woke up thinking he had a seizure was looking for seizure medication and he could not find them so he called 911. Patient was admitted for treatment for alcohol withdrawal. His CIWA score remained low, he was treated per protocol with Ativan as needed and Librium, also associated with vitamins and fluids. Patient symptoms improved and on the day of discharge he is fully awake and oriented. Eating well with no problem, gait is normal. No chest pain or dyspnea. No abdominal pain. No nausea vomiting. No change in urine or bowel habits. No fever. Patient feels himself is recommended to be discharged Patient has been evaluated by neurologist for possible seizure, however his problem mostly related to his alcohol and he is counseled to quit alcohol. Neurologist recommended to continue with the same seizure medication of Keppra and Ativan Neurologist cleared the patient for discharge. Patient will be discharged on tapered dose of Librium, patient is counseled about drinking again especially if he is using Librium and he agrees. Problems and management plan were discussed with the patient and he verbalized understanding and acceptance Patient was found stable and can be discharged home however he needs follow-up as an outpatient. Patient was instructed to follow up with PCP within one week and patient agrees Also social media intern met with the patient, he informed me of the social media intern he has Ativan and Keppra at home, however he does not have gabapentin, social media intern called the pharmacy and is due for referral on 12/28/19, prescription for Neurontin will be provided for 4-5 days still he fills his prescription i discussed with the pt in the morning that he might be ready for discharge but psychiatrist consult for alcohol abuse is recommended by neurologist and he told he is willing to stay and wait for [facility] doctor, although he was concerned because he has to pay for his rent or so. however later on pt did not want to wait and signed leaving AMA before i have a chance to talk to him or psychiatrist to see him. of note pt had no over signs or symptoms of depression and he denied to me any suicidal or homicidal ideation since admission and through the day of discharge ( today he confirmed to me no suicidal ideation ) and i even doubled checked with the bed side RN Jacob and he also was told by pt he has no suicidal ideation including the day of discharge based upon my evaluation pt has capacity to medical decision and medical team could not hold him against his will Gen: patient is a AAOx3, no distress CVS: S1-S2, RRR, no murmur Lungs: B/L CTA, no wheezing Abdomen: soft, no distention, no tenderness, positive bowel sounds Extremity: no leg edema or induration Time spent more than 35 minutes Patient Condition at Discharge: Stable Plan - Discharge Summary Discharge Rx Participant: Yes New Discharge Prescriptions: New RX: chlordiazePOXIDE HCl [Librium] 10 mg PO DIRECTED 2 Days #3 cap RX: Magnesium Oxide [Mag-Ox] 400 mg PO BID 8 Days #16 tab RX: Gabapentin [Neurontin] 600 mg PO QID 5 Days #40 cap RX: Acetaminophen Tab [Tylenol] 650 mg PO Q6HR PRN tab PRN Reason: Mild Pain Or Fever > 100.5 RX: levETIRAcetam [Keppra] 500 mg PO Q12HR #60 tab RX: Pantoprazole [Protonix] 40 mg PO AC-BRKFST #30 tablet.dr Continue RX: Albuterol Inhaler [Ventolin Hfa Inhaler] 2 puff INHALATION RT-Q8H PRN PRN Reason: Shortness Of Breath RX: traZODone HCL 150 mg PO HS RX: Tamsulosin HCl [Flomax] 0.4 mg PO BID RX: LORazepam [Ativan] 2 mg PO HS RX: levETIRAcetam [Keppra] 500 mg PO Q12HR #60 tab RX: Gabapentin [Neurontin] 600 mg PO QID #28 cap RX: Folic Acid 1 mg PO DAILY@1200 30 Days #30 tab RX: Thiamine [Vitamin B-1] 100 mg PO DAILY #30 tab Discharge Medication List RX: Albuterol Inhaler [Ventolin Hfa Inhaler] 2 puff INHALATION RT-Q8H PRN 11/11/19 [History] RX: LORazepam [Ativan] 2 mg PO HS 11/11/19 [History] RX: Tamsulosin HCl [Flomax] 0.4 mg PO BID 11/11/19 [History] RX: traZODone HCL 150 mg PO HS 11/11/19 [History] RX: Gabapentin [Neurontin] 600 mg PO QID #28 cap 12/19/19 [Rx] RX: levETIRAcetam [Keppra] 500 mg PO Q12HR #60 tab 12/19/19 [Rx] RX: Acetaminophen Tab [Tylenol] 650 mg PO Q6HR PRN tab 12/23/19 [Rx] RX: Folic Acid 1 mg PO DAILY@1200 30 Days #30 tab 12/23/19 [Rx] RX: Gabapentin [Neurontin] 600 mg PO QID 5 Days #40 cap 12/23/19 [Rx] RX: Magnesium Oxide [Mag-Ox] 400 mg PO BID 8 Days #16 tab 12/23/19 [Rx] RX: Pantoprazole [Protonix] 40 mg PO [id number] #30 mirna. 12/23/19 [Rx] RX: Thiamine [Vitamin B-1] 100 mg PO DAILY #30 tab 12/23/19 [Rx] RX: chlordiazePOXIDE HCl [Librium] 10 mg PO DIRECTED 2 Days #3 cap 12/23/19 [Rx] RX: levETIRAcetam [Keppra] 500 mg PO Q12HR #60 tab 12/23/19 [Rx] Follow up Appointment(s)/Referral(s): Tamanna Barbosa DO [REFERRING] - 1 Week Activity/Diet/Wound Care/Special Instructions: Heart healthy diet Activity is limited till you see your doctor Discharge Disposition: Left Against Medical Advice
== END 2019-12-23 12:51 | disposition left against medical advice (07) | DRG 894 ==
LOC: EC 11:15 → 5NMEDONC 14:22 → 4SSUR 15:37
PROVIDERS: ADMIT Internal Medicine; ATTEND Internal Medicine
DX: F10.239 Alcohol dependence with withdrawal, unspecified (principal); E83.42 Hypomagnesemia; F17.210 Nicotine dependence, cigarettes, uncomplicated; F32.9 Major depressive disorder, single episode, unspecified; F41.9 Anxiety disorder, unspecified; G40.909 Epilepsy, unspecified, not intractable, without status epilepticus; N40.0 Benign prostatic hyperplasia without lower urinary tract symptoms; Y90.8 Blood alcohol level of 240 mg/100 ml or more; Z96.653 Presence of artificial knee joint, bilateral; Z79.899 Other long term (current) drug therapy
CPT/HCPCS: 36415; 80048; 80053; 80306; 80320; 81001; 82150; 83690; 83735; 85025; 85610; 96361; 96365; 96375; 99285

== ENCOUNTER 2019-12-25 11:55 | Inpatient (IN) | payer MEDICARE ==
[2019-12-25] MEDS ORDERED: SODIUM CHLORIDE 0.9% 1,000 ML IV ONE ×2 (12:17→12:43)
[2019-12-25] MEDS ORDERED: SODIUM CHLORIDE 0.9% 1,000 ML with MVI, ADULT NO.4 WITH VIT K 10 ML, THIAMINE 100 MG, F... IV ONE ×4 (12:18)
--- NOTE | 2019-12-25 12:25 | ED ---
General Adult HPI - General Chief complaint: Alcohol Stated complaint: ETOH Time Seen by Provider: 12/25/19 11:55 Source: patient, EMS, RN notes reviewed, old records reviewed Mode of arrival: EMS Limitations: altered mental status - History of Present Illness Initial comments: This is a 59-year-old male who presents emergency department highly intoxicated. Patient comes in by EMS because he went to [place] and try to get him and he was too intoxicated for them to take him. Patient does admit to drinking but states he didn't drink that much. Patient denies any drug use patient denies any physical complaints today. Patient is very difficult to get a history from because he is so intoxicated. He does know his name and where he is but it's difficult to have him answer any other questions because he loses his train of thought - Related Data Home Medications Medication Instructions Recorded Confirmed Albuterol Inhaler [Ventolin Hfa 2 puff INHALATION RT-Q8H PRN 11/11/19 12/25/19 Inhaler] LORazepam [Ativan] 2 mg PO HS 11/11/19 12/25/19 Tamsulosin HCl [Flomax] 0.4 mg PO BID 11/11/19 12/25/19 traZODone HCL 150 mg PO HS 11/11/19 12/25/19 Gabapentin 600 mg PO QID 12/25/19 12/25/19 chlordiazePOXIDE HCl [Librium] See Taper PO DIRECTED 12/25/19 12/25/19 Previous Rx's Medication Instructions Recorded levETIRAcetam [Keppra] 500 mg PO Q12HR #60 tab 12/19/19 Acetaminophen Tab [Tylenol] 650 mg PO Q6HR PRN tab 12/23/19 Folic Acid 1 mg PO DAILY@1200 30 Days #30 tab 12/23/19 Magnesium Oxide [Mag-Ox] 400 mg PO BID 8 Days #16 tab 12/23/19 Pantoprazole [Protonix] 40 mg PO AC-BRKFST #30 tablet. 12/23/19 Thiamine [Vitamin B-1] 100 mg PO DAILY #30 tab 12/23/19 Allergies Allergy/AdvReac Type Severity Reaction Status Date / Time No Known Allergies Allergy Verified 12/21/19 14:53 Review of Systems ROS Statement: Those systems with pertinent positive or pertinent negative responses have been documented in the HPI. ROS Other: All systems not noted in ROS Statement are negative. Past Medical History Past Medical History: Osteoarthritis (OA), Pneumonia, Seizure Disorder Additional Past Medical History / Comment(s): seizure from etoh, enlarged prostate, per pt scissors went into his right eye years ago and pupil is distorted and irregular in shape, he says it is very very blurry out of that eye. Last admission was in ICU on a ventilator. History of Any Multi-Drug Resistant Organisms: None Reported Past Surgical History: Joint Replacement, Orthopedic Surgery Additional Past Surgical History / Comment(s): left knee replacement, right hip Past Anesthesia/Blood Transfusion Reactions: No Reported Reaction Past Psychological History: Anxiety, Depression Smoking Status: Current every day smoker Past Alcohol Use History: Abuse, Daily, Heavy Past Drug Use History: None Reported - Past Family History Family Family Medical History: Unable to Obtain General Exam - General Exam Comments Initial Comments: GENERAL: Patient is well-developed and well-nourished. Patient is nontoxic and well- hydrated and is in no acute distress. ENT: Neck is soft and supple. No significant lymphadenopathy is noted. Oropharynx is clear. Moist mucous membranes. Neck has full range of motion without eliciting any pain. EYES: The sclera were anicteric and conjunctiva were pink and moist. Extraocular movements were intact and pupils were equal round and reactive to light. Eyelids were unremarkable. PULMONARY: Unlabored respirations. Good breath sounds bilaterally. No audible rales rhonchi or wheezing was noted. CARDIOVASCULAR: There is a regular rate and rhythm without any murmurs gallops or rubs. ABDOMEN: Soft and nontender with normal bowel sounds. SKIN: Skin is clear with no lesions or rashes and otherwise unremarkable. NEUROLOGIC: Patient is alert and oriented x3. Cranial nerves II through XII are grossly intact. Motor and sensory are also intact. Normal speech, volume and content. Symmetrical smile. Patient is ataxic when he tries to get up and walk. MUSCULOSKELETAL: Normal extremities with adequate strength and full range of motion. LYMPHATICS: No significant lymphadenopathy is noted PSYCHIATRIC: Patient is highly intoxicated so a psychiatric exam cannot be done Limitations: altered mental status Course Vital Signs 12/25/19 12:00 Temperature 97.7 F Pulse Rate 69 Respiratory 20 Rate Blood Pressure 157/96 O2 Sat by Pulse 97 Oximetry Medical Decision Making - Medical Decision Making I spoke with Dr. Park he accepted the patient admitted the patient wrote admitting orders. Disposition Clinical Impression: Alcoholic intoxication Disposition: ADMITTED IP TO THIS HOSP Referrals: None,Stated [Primary Care Provider] - 1-2 days Time of Disposition: 12:29
[2019-12-25] MEDS ORDERED: LORazepam 2 MG/ML INJ IV STA (12:28)
[2019-12-25] MEDS ORDERED: LORazepam 2 MG/ML INJ IV PRN ×2 (12:44)
[2019-12-25] MEDS ORDERED: THIAMINE 100 MG/ML 2 ML VIAL IM STA (12:44)
[2019-12-25 12:46] LABS: Anisocytosis Slight; Basophils % (A) 1 %; Eosinophils # (A) 0.3 k/uL (0-0.7); Eosinophils % (A) 5 %; HCT 43.4 % (39.0-53.0); HGB 13.7 gm/dL (13.0-17.5); Lymphocytes # (A) 2.2 k/uL (1.0-4.8); Lymphocytes % (A) 33 %; MCH 31.6 pg (25.0-35.0); MCHC 31.6 g/dL (31.0-37.0); MCV 99.8 fL (80.0-100.0); Macrocytosis Slight; Mean Platelet Volume 7.3; Monocytes # (A) 0.4 k/uL (0-1.0); Monocytes % (A) 6 %; Neutrophils # (A) 3.4 k/uL (1.3-7.7); Neutrophils % (A) 51 %; Platelet Count 178 k/uL (150-450); RBC 4.35 m/uL (4.30-5.90); RDW 16.7 % (11.5-15.5); WBC 6.7 k/uL (3.8-10.6)
[2019-12-25 12:55] LABS: ALT 34 U/L (4-49); AST 50 U/L (17-59); African American GFR (CKD) >90 (>60 ml/min/1.73 sqM); Albumin 4.3 g/dL (3.5-5.0); Alkaline Phosphatase 77 U/L (38-126); Anion Gap 11 mmol/L; Blood Urea Nitrogen 16 mg/dL (9-20); Carbon Dioxide 25 mmol/L (22-30); Chloride 107 mmol/L (98-107); Glucose 86 mg/dL (74-99); Magnesium 1.4 mg/dL (1.6-2.3); Non-African American GFR(CKD) >90 (>60 ml/min/1.73 sqM); Potassium 4.5 mmol/L (3.5-5.1); Sodium 143 mmol/L (137-145); Total Bilirubin 0.5 mg/dL (0.2-1.3); Total Protein 7.4 g/dL (6.3-8.2)
[2019-12-25 13:16] LABS: Alcohol 362 mg/dL
[2019-12-25] MEDS: MAGNESIUM SULFATE-D5W PMX 1 GM in DEXTROSE/WATER 1 100ML.BAG IVPB SCH ×2 (15:26→16:41)
[2019-12-25] MEDS ORDERED: ALBUTEROL NEBULIZED 2.5 MG/3 ML INHALATION PRN (16:55)
[2019-12-25] MEDS ORDERED: MAGNESIUM SULFATE-D5W PMX 1 GM in DEXTROSE/WATER 1 100ML.BAG IVPB SCH (17:00)
[2019-12-25] MEDS: LORazepam 2 MG/ML INJ IV PRN ×3 (18:47→23:38)
[2019-12-25] MEDS: THIAMINE 100 MG TAB PO SCH (20:45)
[2019-12-25] MEDS: levETIRAcetam 500 MG TAB PO SCH (20:46)
[2019-12-25] MEDS: TAMSULOSIN 0.4 MG CAP.ER.24H PO SCH (20:46)
[2019-12-25] MEDS: MAGNESIUM OXIDE 400 MG TAB PO SCH (20:46)
[2019-12-25] MEDS: traZODone HCL 50 MG TAB PO SCH (20:46)
[2019-12-25] MEDS: TRIAMCINOLONE 0.1% CREAM 80 GM TUBE TOPICAL SCH (21:41)
--- NOTE | 2019-12-25 23:36 | P.HPIM ---
History of Present Illness H&P Date: 12/25/19 Chief Complaint: Acute alcohol intoxication Patient is a 59-year-old male with a known history of seizure disorder, BPH, osteoarthritis, anxiety/depression, severe alcohol abuse and currently every day smoker was brought to ER due to alcohol intoxication. Patient went to [place] and tried to get into rehab program but he was too intoxicated for them to take him. Patient otherwise denied any complaints of chest pain or shortness of breath. No nausea vomiting or abdominal pain. No hematemesis or melena. No headache or dizziness or lightheadedness. Patient is still shaky and was given IV Ativan. No fever no chills. No cough or sputum production. Alcohol level 362 and magnesium 1.4 Laboratory data reviewed. This is a 59-year-old male who presents emergency department highly intoxicated. Patient comes in by EMS because he went to [place] and try to get him and he was too intoxicated for them to take him. Patient does admit to drinking but states he didn't drink that much. Patient denies any drug use patient denies any physical complaints today. Patient is very difficult to get a history from because he is so intoxicated. He does know his name and where he is but it's difficult to have him answer any other questions because he loses his train of thought Past Medical History: Osteoarthritis (OA), Pneumonia, Seizure Disorder Additional Past Medical History / Comment(s): seizure from etoh, enlarged prostate, per pt scissors went into his right eye years ago and pupil is distorted and irregular in shape, he says it is very very blurry out of that eye. Last admission was in ICU on a ventilator. History of Any Multi-Drug Resistant Organisms: None Reported Past Surgical History: Joint Replacement, Orthopedic Surgery Additional Past Surgical History / Comment(s): left knee replacement, right hip Past Anesthesia/Blood Transfusion Reactions: No Reported Reaction Past Psychological History: Anxiety, Depression Smoking Status: Current every day smoker Past Alcohol Use History: Abuse, Daily, Heavy Past Drug Use History: None Reported Review of Systems Constitutional: Patient denies any fever or chills . Abdomen: Patient denied nausea vomiting and diarrhea and abdominal pain. Cardiovascular: Patient denies any chest pain or short of breath no palpitations. Respiratory: patient denied any cough is from production. No shortness of breath Neurologic: Patient denied any numbness or tingling headache. Musculoskeletal: Patient denies any complaints of joint swelling or deformity. Complete review of systems could not be obtained from the patient Past Medical History Past Medical History: Osteoarthritis (OA), Pneumonia, Seizure Disorder Additional Past Medical History / Comment(s): seizure from etoh, enlarged prostate, per pt scissors went into his right eye years ago and pupil is distorted and irregular in shape, he says it is very very blurry out of that eye. Last admission was in ICU on a ventilator. History of Any Multi-Drug Resistant Organisms: None Reported Past Surgical History: Joint Replacement, Orthopedic Surgery Additional Past Surgical History / Comment(s): left knee replacement, right hip Past Anesthesia/Blood Transfusion Reactions: No Reported Reaction Past Psychological History: Anxiety, Depression Smoking Status: Current every day smoker Past Alcohol Use History: Abuse, Daily, Heavy Past Drug Use History: None Reported - Past Family History Family Family Medical History: Unable to Obtain Mother Family Medical History: No Reported History Additional Family Medical History / Comment(s): age 85 and still living. Medications and Allergies Home Medications Medication Instructions Recorded Confirmed Type Albuterol Inhaler [Ventolin Hfa 2 puff INHALATION RT-Q8H PRN 11/11/19 12/25/19 History Inhaler] LORazepam [Ativan] 2 mg PO HS 11/11/19 12/25/19 History Tamsulosin HCl [Flomax] 0.4 mg PO BID 11/11/19 12/25/19 History traZODone HCL 150 mg PO HS 11/11/19 12/25/19 History levETIRAcetam [Keppra] 500 mg PO Q12HR #60 tab 12/19/19 12/25/19 Rx Acetaminophen Tab [Tylenol] 650 mg PO Q6HR PRN tab 12/23/19 12/25/19 Rx Folic Acid 1 mg PO DAILY@1200 30 Days #30 tab 12/23/19 12/25/19 Rx Magnesium Oxide [Mag-Ox] 400 mg PO BID 8 Days #16 tab 12/23/19 12/25/19 Rx Pantoprazole [Protonix] 40 mg PO BEATRIZ-BRKFST #30 tablet. 12/23/19 12/25/19 Rx Thiamine [Vitamin B-1] 100 mg PO DAILY #30 tab 12/23/19 12/25/19 Rx Gabapentin 600 mg PO QID 12/25/19 12/25/19 History chlordiazePOXIDE HCl [Librium] See Taper PO DIRECTED 12/25/19 12/25/19 Hist ory Allergies Allergy/AdvReac Type Severity Reaction Status Date / Time No Known Allergies Allergy Verified 12/21/19 14:53 Physical Exam Vitals: Vital Signs Temp Pulse Resp BP Pulse Ox 12/25/19 12:45 92 16 146/65 99 12/25/19 12:00 97.7 F 69 20 157/96 97 Intake and Output 12/25/19 12/25/19 12/25/19 06:59 14:59 22:59 Other: Weight 79.379 kg PHYSICAL EXAMINATION: Patient is lying in the bed comfortably, no acute distress, awake alert and intoxicated.. HEENT: Normocephalic. Neck is supple. Pupils reactive. Nostrils clear. Oral cavity is moist. Ears reveal no drainage. Neck reveals no JVD, carotid bruits, or thyromegaly. CHEST EXAMINATION: Trachea is central. Symmetrical expansion. Bibasilar diminished air entry. Lung wolff clear to auscultation and percussion. CARDIAC: Normal S1, S2 with no gallops. No murmurs ABDOMEN: Soft. Bowel sounds normal. No organomegaly. No abdominal bruits. Extremities: reveal no edema. No clubbing or cyanosis Neurologically awake, alert, oriented x2 with well-coordinated movements. No focal deficits noted Skin: No rash or skin lesions. Psychiatric: Coperative. Nonsuicidal. Could not be assessed completely. Musculoskeletal: No joint swelling or deformity. Normal range of motion. Results CBC & Chem 7: 12/25/19 12:18 12/25/19 12:18 Labs: Abnormal Lab Results - Last 24 Hours (Table) 12/25/19 12/25/19 Range/Units 12:18 12:18 RDW 16.7 H (11.5-15.5) % Magnesium 1.4 L (1.6-2.3) mg/dL Serum Alcohol 362 H* mg/dL Thrombosis Risk Factor Assmnt - DVT/VTE Prophylaxis DVT/VTE Prophylaxis: Pharmacologic Prophylaxis ordered Assessment and Plan Assessment: Acute alcohol intoxication with a blood level 362 Hypomagnesemia History of seizure disorder due to EtOH. Currently on Keppra at home Osteoarthritis Anxiety/depression BPH Severe alcohol abuse Nicotine addiction DVT prophylaxis with heparin subcu Plan: Patient will be continued on IV hydration with normal saline. Continue with thiamine and multivitamins and monitor for alcohol withdrawal symptoms. Continue with home medications including antiepileptic medications. Alcohol withdrawal protocol in place. reinforcing metal worker will be consulted for referral to alcohol abuse program. Further recommendations based on the clinical course. Time with Patient: Greater than 30
[2019-12-25] MEDS: HEPARIN SODIUM,PORCINE 5,000 UNIT/ML 1 ML VIAL SQ SCH (23:57)
[2019-12-26] MEDS: LORazepam 2 MG/ML INJ IV PRN ×7 (01:46→22:26)
[2019-12-26] MEDS: TAMSULOSIN 0.4 MG CAP.ER.24H PO SCH ×2 (10:10→20:12)
[2019-12-26] MEDS: THIAMINE 100 MG TAB PO SCH ×2 (10:10→16:52)
[2019-12-26] MEDS: MAGNESIUM OXIDE 400 MG TAB PO SCH ×2 (10:10→20:12)
[2019-12-26] MEDS: PANTOPRAZOLE 40 MG TABLET PO SCH (10:10)
[2019-12-26] MEDS: HEPARIN SODIUM,PORCINE 5,000 UNIT/ML 1 ML VIAL SQ SCH ×3 (10:14→23:20)
[2019-12-26] MEDS: levETIRAcetam 500 MG TAB PO SCH ×2 (10:14→20:12)
[2019-12-26] MEDS: TRIAMCINOLONE 0.1% CREAM 80 GM TUBE TOPICAL SCH ×2 (10:17→21:46)
[2019-12-26 10:36] VITALS: BMI 23.7
[2019-12-26] MEDS: traZODone HCL 50 MG TAB PO SCH (20:12)
--- NOTE | 2019-12-27 00:08 | P.PN ---
Subjective Progress Note Date: 12/26/19 Principal diagnosis: Alcohol intoxication and withdrawal Mr. Zelaya is a 59-year-old male with history of seizure disorder, BPH, anxiety, severe alcohol abuse, nicotine dependence daily, who was sent from [place] as he was found to be heavily intoxicated with alcohol. Patient is currently being treated for alcohol withdrawal. Today he is comfortably sleeping in bed appears to be in no acute distress. Patient denies having any chest pain or palpitations. No cough or difficulty breathing. No abdominal pain nausea vomiting or diarrhea. No lower extremity swelling. No dysuria or hematuria. No new labs from this morning. Patient's repeat magnesium is 1.9 today. Objective - Vital Signs Vital signs: Vital Signs Temp 97.3 F L 12/26/19 11:33 Pulse 90 12/26/19 15:49 Resp 16 12/26/19 15:49 BP 156/79 12/26/19 11:33 Pulse Ox 96 12/26/19 11:33 Intake & Output 12/25/19 12/26/19 12/26/19 18:59 06:59 18:59 Intake Total 120 Balance 120 Weight 79.379 kg 79.379 kg Intake: Oral 120 Other: Voiding Method Toilet Toilet # Voids 1 1 3 - Exam GEN. APPEARANCE: alert, in no apparent distress HEENT: no pallor, no icterus, No JVD RESPIRATORY EXAM: normal lung sounds bilaterally. Absent: respiratory distress, wheezes, rales, rhonchi, stridor CARDIOVASCULAR EXAM: regular rate, normal rhythm, normal heart sounds. GI/ABDOMINAL EXAM: soft, normal bowel sounds. Mild epigastric tenderness. EXTREMITIES EXAM: no edema NEUROLOGICAL EXAM: alert, oriented X3, no focal deficits PSYCHIATRIC EXAM: normal affect, normal mood - Labs CBC & Chem 7: 12/25/19 12:18 12/25/19 12:18 Assessment and Plan Assessment: Assessment: Acute alcohol intoxication with a blood level 362 Hypomagnesemia History of seizure disorder due to EtOH. Currently on Keppra at home Osteoarthritis Anxiety/depression BPH Severe alcohol abuse Nicotine addiction DVT prophylaxis with heparin subcu Plan: Patient will be continued on IV hydration with normal saline. Continue with thiamine and multivitamins and monitor for alcohol withdrawal symptoms. Continue with home medications including antiepileptic medications. [facility] protocol in place. ornamental metal worker apprentice will be consulted for referral to alcohol abuse program. Further recommendations based on the clinical progress.
[2019-12-27] MEDS: LORazepam 2 MG/ML INJ IV PRN ×8 (00:19→21:26)
[2019-12-27 07:40] LABS: Anisocytosis Slight; Basophils % (A) 0 %; Eosinophils # (A) 0.4 k/uL (0-0.7); Eosinophils % (A) 7 %; HGB 12.1 gm/dL (13.0-17.5); Lymphocytes # (A) 1.1 k/uL (1.0-4.8); Lymphocytes % (A) 19 %; MCH 32.5 pg (25.0-35.0); MCHC 32.8 g/dL (31.0-37.0); MCV 99.3 fL (80.0-100.0); Macrocytosis Slight; Mean Platelet Volume 7.5; Monocytes # (A) 0.4 k/uL (0-1.0); Monocytes % (A) 7 %; Neutrophils # (A) 3.6 k/uL (1.3-7.7); Neutrophils % (A) 64 %; Platelet Count 159 k/uL (150-450); RBC 3.72 m/uL (4.30-5.90); RDW 16.4 % (11.5-15.5); WBC 5.7 k/uL (3.8-10.6)
[2019-12-27 07:59] LABS: ALT 22 U/L (4-49); AST 34 U/L (17-59); African American GFR (CKD) >90 (>60 ml/min/1.73 sqM); Albumin 3.5 g/dL (3.5-5.0); Alkaline Phosphatase 63 U/L (38-126); Anion Gap 5 mmol/L; Blood Urea Nitrogen 17 mg/dL (9-20); Carbon Dioxide 29 mmol/L (22-30); Chloride 103 mmol/L (98-107); Glucose 93 mg/dL (74-99); Non-African American GFR(CKD) >90 (>60 ml/min/1.73 sqM); Potassium 4.2 mmol/L (3.5-5.1); Sodium 137 mmol/L (137-145); Total Bilirubin 1.3 mg/dL (0.2-1.3); Total Protein 6.2 g/dL (6.3-8.2)
[2019-12-27] MEDS: MAGNESIUM OXIDE 400 MG TAB PO SCH ×2 (09:08→20:55)
[2019-12-27] MEDS: levETIRAcetam 500 MG TAB PO SCH ×2 (09:08→20:55)
[2019-12-27] MEDS: THIAMINE 100 MG TAB PO SCH ×2 (09:08→17:51)
[2019-12-27] MEDS: TAMSULOSIN 0.4 MG CAP.ER.24H PO SCH ×2 (09:08→20:55)
[2019-12-27] MEDS: PANTOPRAZOLE 40 MG TABLET PO SCH (09:09)
[2019-12-27] MEDS: HEPARIN SODIUM,PORCINE 5,000 UNIT/ML 1 ML VIAL SQ SCH ×3 (09:09→23:26)
[2019-12-27] MEDS: TRIAMCINOLONE 0.1% CREAM 80 GM TUBE TOPICAL SCH ×2 (09:22→20:56)
[2019-12-27] MEDS: ALBUTEROL NEBULIZED 2.5 MG/3 ML INHALATION SCH (19:38)
[2019-12-27] MEDS: traZODone HCL 50 MG TAB PO SCH (20:55)
[2019-12-28] MEDS: LORazepam 2 MG/ML INJ IV PRN ×2 (04:13→21:51)
[2019-12-28] MEDS: ALBUTEROL NEBULIZED 2.5 MG/3 ML INHALATION SCH ×4 (07:20→19:19)
[2019-12-28] MEDS: MAGNESIUM OXIDE 400 MG TAB PO SCH ×2 (07:59→20:14)
[2019-12-28] MEDS: PANTOPRAZOLE 40 MG TABLET PO SCH (07:59)
[2019-12-28] MEDS: TAMSULOSIN 0.4 MG CAP.ER.24H PO SCH ×2 (07:59→20:15)
[2019-12-28] MEDS: levETIRAcetam 500 MG TAB PO SCH ×2 (07:59→20:14)
[2019-12-28] MEDS: THIAMINE 100 MG TAB PO SCH ×2 (07:59→17:13)
[2019-12-28] MEDS: HEPARIN SODIUM,PORCINE 5,000 UNIT/ML 1 ML VIAL SQ SCH ×3 (07:59→23:55)
[2019-12-28] MEDS: TRIAMCINOLONE 0.1% CREAM 80 GM TUBE TOPICAL SCH ×2 (14:42→20:15)
[2019-12-28] MEDS: traZODone HCL 50 MG TAB PO SCH (20:15)
--- NOTE | 2019-12-28 22:50 | P.PN ---
Subjective Progress Note Date: 12/27/19 Principal diagnosis: Alcohol intoxication and withdrawal Mr. Zelaya is a 59-year-old male with history of seizure disorder, BPH, anxiety, severe alcohol abuse, nicotine dependence daily, who was sent from [place] as he was found to be heavily intoxicated with alcohol. Patient is currently being treated for alcohol withdrawal. On 12/27/2019 -patient is lying in bed appears to be comfortable. Overnight no acute events reported by nursing staff. He states that he has generalized weakness. He denies having any active complaints. No chest pain or palpitati ons. No cough or difficulty breathing. Patient's medications and labs have been reviewed. Objective - Vital Signs Vital signs: Vital Signs Temp 97.3 F L 12/27/19 12:41 Pulse 78 12/27/19 12:41 Resp 18 12/27/19 04:39 BP 130/69 12/27/19 12:41 Pulse Ox 99 12/27/19 12:41 Intake & Output 12/26/19 12/27/19 12/27/19 18:59 06:59 18:59 Intake Total 120 Output Total 500 Balance 120 -500 Weight 79.379 kg Intake: Oral 120 Output: Urine 500 Other: Voiding Method Toilet Toilet Toilet # Voids 3 7 - Exam GEN. APPEARANCE: alert, in no apparent distress HEENT: no pallor, no icterus, No JVD RESPIRATORY EXAM: normal lung sounds bilaterally. No wheeze or crackles. CARDIOVASCULAR EXAM: regular rate, normal rhythm, normal heart sounds. GI/ABDOMINAL EXAM: soft, normal bowel sounds. Mild epigastric tenderness. EXTREMITIES EXAM: no edema NEUROLOGICAL EXAM: alert, oriented X3, no focal deficits PSYCHIATRIC EXAM: normal affect, normal mood - Labs CBC & Chem 7: 12/27/19 07:03 12/27/19 07:03 Labs: Abnormal Lab Results - Last 24 Hours (Table) 12/27/19 12/27/19 Range/Units 07:03 07:03 RBC 3.72 L (4.30-5.90) m/uL Hgb 12.1 L (13.0-17.5) gm/dL Hct 37.0 L (39.0-53.0) % RDW 16.4 H (11.5-15.5) % Total Protein 6.2 L (6.3-8.2) g/dL Assessment and Plan Assessment: Assessment: Acute alcohol intoxication with a blood level 362 Hypomagnesemia History of seizure disorder due to EtOH. Currently on Keppra at home Osteoarthritis Anxiety/depression BPH Severe alcohol abuse Nicotine addiction DVT prophylaxis with heparin subcu Plan:Continue with thiamine and multivitamins and monitor for DTs. Continue with home medications including antiepileptic medications. [facility] protocol in place. hall worker - consulted for referral to alcohol abuse program. Further recommendations depending on the progress of the patient.
--- NOTE | 2019-12-28 23:31 | P.PN ---
Subjective Progress Note Date: 12/28/19 Principal diagnosis: Alcohol intoxication and withdrawal Mr. Zelaya is a 59-year-old male with history of seizure disorder, BPH, anxiety, severe alcohol abuse, nicotine dependence daily, who was sent from [place] as he was found to be heavily intoxicated with alcohol. Patient is currently being treated for alcohol withdrawal. On 12/27/2019 -patient is lying in bed appears to be comfortable. Overnight no acute events reported by nursing staff. He states that he has generalized weakness. He denies having any active complaints. No chest pain or palpitati ons. No cough or difficulty breathing. Patient's medications and labs have been reviewed. On 12/28/2019 -patient is lying in bed appears to be comfortable. Patient's family members at the bedside. His daughter mentions that she is trying to find a place for him to go. Patient tried to walk to the bathroom and his gait was very properly and he needed assistance. So her consult PT OT. Overall patient complains of generalized weakness. Patient's vitals within normal limits over the past 24 hours. His labs and medications have been reviewed. Objective - Vital Signs Vital signs: Vital Signs Temp 97.7 F 12/28/19 11:13 Pulse 73 12/28/19 15:27 Resp 18 12/28/19 11:13 BP 122/72 12/28/19 11:13 Pulse Ox 97 12/28/19 11:13 Intake & Output 12/27/19 12/28/19 12/28/19 18:59 06:59 18:59 Output Total 500 Balance -500 Output: Urine 500 Other: Voiding Method Toilet Toilet Toilet # Voids 6 3 - Exam GEN. APPEARANCE: alert, in no apparent distress HEENT: no pallor, no icterus, No JVD RESPIRATORY EXAM: normal lung sounds bilaterally. No wheeze or crackles. CARDIOVASCULAR EXAM: regular rate, normal rhythm, normal heart sounds. GI/ABDOMINAL EXAM: soft, normal bowel sounds. Mild epigastric tenderness. EXTREMITIES EXAM: no edema NEUROLOGICAL EXAM: alert, oriented X3, no focal deficits, Gait is unsteady PSYCHIATRIC EXAM: normal affect, normal mood - Labs CBC & Chem 7: 12/27/19 07:03 12/27/19 07:03 Assessment and Plan Assessment: Assessment: Acute alcohol intoxication with a blood level 362 Hypomagnesemia History of seizure disorder due to EtOH. Currently on Keppra at home Osteoarthritis Anxiety/depression BPH Severe alcohol abuse Nicotine addiction DVT prophylaxis with heparin subcu Plan:Continue with thiamine and multivitamins and monitor for DTs. Continue with home medications including antiepileptic medications. [facility] protocol in place. coating line worker - consulted for referral to alcohol abuse program. PT/ OT has been consulted for possible rehab placement as the patient has unsteady gait. Discussed the treatment plan in detail with the patient's daughter who is at bedside.Further recommendations depending on the progress of the patient.
[2019-12-29 07:04] LABS: Anisocytosis Slight; Basophils # (A) 0.1 k/uL (0-0.2); Basophils % (A) 1 %; Eosinophils # (A) 0.5 k/uL (0-0.7); Eosinophils % (A) 8 %; HCT 37.8 % (39.0-53.0); HGB 12.1 gm/dL (13.0-17.5); Lymphocytes # (A) 1.3 k/uL (1.0-4.8); Lymphocytes % (A) 22 %; MCH 32.3 pg (25.0-35.0); MCHC 32.1 g/dL (31.0-37.0); MCV 100.4 fL (80.0-100.0); Macrocytosis Slight; Mean Platelet Volume 7.8; Monocytes # (A) 0.5 k/uL (0-1.0); Monocytes % (A) 8 %; Neutrophils # (A) 3.5 k/uL (1.3-7.7); Neutrophils % (A) 59 %; Platelet Count 165 k/uL (150-450); RBC 3.76 m/uL (4.30-5.90); RDW 16.1 % (11.5-15.5)
[2019-12-29 07:33] LABS: African American GFR (CKD) >90 (>60 ml/min/1.73 sqM); Anion Gap 5 mmol/L; Blood Urea Nitrogen 22 mg/dL (9-20); Calcium 9.2 mg/dL (8.4-10.2); Carbon Dioxide 29 mmol/L (22-30); Chloride 103 mmol/L (98-107); Glucose 103 mg/dL (74-99); Non-African American GFR(CKD) >90 (>60 ml/min/1.73 sqM); Potassium 4.1 mmol/L (3.5-5.1); Sodium 137 mmol/L (137-145)
[2019-12-29] MEDS: MAGNESIUM OXIDE 400 MG TAB PO SCH ×2 (07:58→21:16)
[2019-12-29] MEDS: TAMSULOSIN 0.4 MG CAP.ER.24H PO SCH ×2 (07:59→21:17)
[2019-12-29] MEDS: levETIRAcetam 500 MG TAB PO SCH ×2 (07:59→21:17)
[2019-12-29] MEDS: PANTOPRAZOLE 40 MG TABLET PO SCH (07:59)
[2019-12-29] MEDS: HEPARIN SODIUM,PORCINE 5,000 UNIT/ML 1 ML VIAL SQ SCH ×2 (07:59→16:27)
[2019-12-29] MEDS: THIAMINE 100 MG TAB PO SCH ×2 (07:59→16:28)
[2019-12-29] MEDS: ALBUTEROL NEBULIZED 2.5 MG/3 ML INHALATION SCH ×4 (08:09→19:10)
[2019-12-29] MEDS: TRIAMCINOLONE 0.1% CREAM 80 GM TUBE TOPICAL SCH ×2 (09:29→21:18)
[2019-12-29] MEDS: GABAPENTIN 300 MG CAP PO SCH ×2 (21:16→21:19)
[2019-12-29] MEDS: traZODone HCL 50 MG TAB PO SCH (21:17)
[2019-12-29] MEDS: LORazepam 1 MG TAB PO SCH (21:17)
--- NOTE | 2019-12-29 22:38 | P.PN ---
Subjective Progress Note Date: 12/29/19 Principal diagnosis: Acute alcohol withdrawal Mr. Zelaya is a 59-year-old male with history of seizure disorder, BPH, anxiety, severe alcohol abuse, nicotine dependence daily, who was sent from [place] as he was found to be heavily intoxicated with alcohol. Patient is currently being treated for alcohol withdrawal. On 12/27/2019 -patient is lying in bed appears to be comfortable. Overnight no acute events reported by nursing staff. He states that he has generalized weakness. He denies having any active complaints. No chest pain or palpitations. No cough or difficulty breathing. Patient's medications and labs have been reviewed. On 12/28/2019 -patient is lying in bed appears to be comfortable. Patient's family members at the bedside. His daughter mentions that she is trying to find a place for him to go. Patient tried to walk to the bathroom and his gait was very properly and he needed assistance. So her consult PT OT. Overall patient complains of generalized weakness. Patient's vitals within normal limits over the past 24 hours. His labs and medications have been reviewed. 12/29/2019 Patient is currently lying in the bed and seems drowsy. Says that he has not feeling very well. Denied any chest pain or shortness of breath. No fever no chills. Patient is still requiring Ativan with alcohol withdrawal protocol. PT OT on board. Case management is following possible discharge to alcohol rehab program in the next 24-48 hours. Patient would like Neurontin to be restarted. Patient is able to tolerate oral diet. No nausea vomiting or abdominal pain. Current medications reviewed. Objective - Vital Signs Vital signs: Vital Signs Temp 97.6 F 12/29/19 20:56 Pulse 65 12/29/19 20:56 Resp 16 12/29/19 20:56 BP 130/66 12/29/19 20:56 Pulse Ox 94 L 12/29/19 20:56 Intake & Output 12/29/19 12/29/19 12/30/19 06:59 18:59 06:59 Intake Total 840 480 Balance 840 480 Intake: Oral 840 480 Other: Voiding Method Toilet # Voids 1 3 - Exam GEN. APPEARANCE: alert, in no apparent distress HEENT: no pallor, no icterus, No JVD RESPIRATORY EXAM: normal lung sounds bilaterally. No wheeze or crackles. CARDIOVASCULAR EXAM: regular rate, normal rhythm, normal heart sounds. GI/ABDOMINAL EXAM: soft, normal bowel sounds. Mild epigastric tenderness. EXTREMITIES EXAM: no edema NEUROLOGICAL EXAM: alert, oriented X3, no focal deficits, Gait is unsteady PSYCHIATRIC EXAM: normal affect, normal mood - Labs CBC & Chem 7: 12/29/19 06:39 02 06:39 Labs: Abnormal Lab Results - Last 24 Hours (Table) 12/29/19 12/29/19 Range/Units 06:39 06:39 RBC 3.76 L (4.30-5.90) m/uL Hgb 12.1 L (13.0-17.5) gm/dL Hct 37.8 L (39.0-53.0) % MCV 100.4 H (80.0-100.0) fL RDW 16.1 H (11.5-15.5) % BUN 22 H (9-20) mg/dL Glucose 103 H (74-99) mg/dL Assessment and Plan Assessment: Acute alcohol withdrawal symptoms Acute alcohol intoxication with a blood level 362 Hypomagnesemia History of seizure disorder due to EtOH. Currently on Keppra at home Osteoarthritis Anxiety/depression BPH Severe alcohol abuse Nicotine addiction DVT prophylaxis with heparin subcu Plan:Continue with thiamine and multivitamins and monitor for DTs. Continue with home medications including antiepileptic medications. [facility] protocol in place. forestry workers - consulted for referral to alcohol abuse program. PT/ OT has been consulted for possible rehab placement as the patient has unsteady gait. Discussed the treatment plan in detail with the patient's daughter. Further recommendations depending on the progress of the patient. Time with Patient: Greater than 30
[2019-12-30] MEDS: HEPARIN SODIUM,PORCINE 5,000 UNIT/ML 1 ML VIAL SQ SCH ×3 (00:06→17:13)
[2019-12-30] MEDS: THIAMINE 100 MG TAB PO SCH ×2 (09:14→17:14)
[2019-12-30] MEDS: MAGNESIUM OXIDE 400 MG TAB PO SCH ×2 (09:14→22:21)
[2019-12-30] MEDS: GABAPENTIN 300 MG CAP PO SCH ×4 (09:14→22:23)
[2019-12-30] MEDS: levETIRAcetam 500 MG TAB PO SCH ×2 (09:14→22:21)
[2019-12-30] MEDS: TAMSULOSIN 0.4 MG CAP.ER.24H PO SCH ×2 (09:14→22:22)
[2019-12-30] MEDS: PANTOPRAZOLE 40 MG TABLET PO SCH (09:15)
[2019-12-30] MEDS: ALBUTEROL NEBULIZED 2.5 MG/3 ML INHALATION SCH ×4 (09:23→19:53)
[2019-12-30] MEDS: TRIAMCINOLONE 0.1% CREAM 80 GM TUBE TOPICAL SCH ×2 (09:24→22:22)
[2019-12-30] MEDS: LORazepam 1 MG TAB PO SCH (22:21)
[2019-12-30] MEDS: traZODone HCL 50 MG TAB PO SCH (22:21)
--- NOTE | 2019-12-30 23:58 | P.PN ---
Subjective Progress Note Date: 12/30/19 Principal diagnosis: Acute alcohol withdrawal Mr. Zelaya is a 59-year-old male with history of seizure disorder, BPH, anxiety, severe alcohol abuse, nicotine dependence daily, who was sent from [place] as he was found to be heavily intoxicated with alcohol. Patient is currently being treated for alcohol withdrawal. On 12/27/2019 -patient is lying in bed appears to be comfortable. Overnight no acute events reported by nursing staff. He states that he has generalized weakness. He denies having any active complaints. No chest pain or palpitations. No cough or difficulty breathing. Patient's medications and labs have been reviewed. On 12/28/2019 -patient is lying in bed appears to be comfortable. Patient's family members at the bedside. His daughter mentions that she is trying to find a place for him to go. Patient tried to walk to the bathroom and his gait was very properly and he needed assistance. So her consult PT OT. Overall patient complains of generalized weakness. Patient's vitals within normal limits over the past 24 hours. His labs and medications have been reviewed. 12/29/2019 Patient is currently lying in the bed and seems drowsy. Says that he has not feeling very well. Denied any chest pain or shortness of breath. No fever no chills. Patient is still requiring Ativan with alcohol withdrawal protocol. PT OT on board. Case management is following possible discharge to alcohol rehab program in the next 24-48 hours. Patient would like Neurontin to be restarted. Patient is able to tolerate oral diet. No nausea vomiting or abdominal pain. 12/30/2019 Patient is more awake and oriented. Able to tolerate oral diet. Pain is fairly controlled otherwise. Not requiring scheduled dose of Ativan. Patient is being continued on Neurontin and trazodone daily at bedtime. Anticipate discharged to rehab tomorrow morning. No fever no chills. No chest pain or shortness of breath. No nausea vomiting or abdominal pain. No diarrhea. Current medications reviewed. Objective - Vital Signs Vital signs: Vital Signs Temp 98 F 12/30/19 12:40 Pulse 70 12/30/19 16:06 Resp 20 12/30/19 15:52 BP 132/76 12/30/19 12:40 Pulse Ox 95 12/30/19 12:40 Intake & Output 02/10/0712/30/19 12/30/19 18:59 06:59 18:59 Intake Total 480 1550 Balance 480 1550 Intake: Oral 480 1550 Other: Voiding Method Toilet # Voids 3 2 2 - Exam PHYSICAL EXAMINATION: Patient is lying in the bed comfortably, no acute distress, awake alert and oriented.. HEENT: Normocephalic. Neck is supple. Pupils reactive. Nostrils clear. Oral cavity is moist. Ears reveal no drainage. Neck reveals no JVD, carotid bruits, or thyromegaly. CHEST EXAMINATION: Trachea is central. Symmetrical expansion. Lung wolff clear to auscultation and percussion. CARDIAC: Normal S1, S2 with no gallops. No murmurs ABDOMEN: Soft. Bowel sounds normal. No organomegaly. No abdominal bruits. Extremities: reveal no edema. No clubbing or cyanosis Neurologically awake, alert, oriented x3 with well-coordinated movements. No focal deficits noted Skin: No rash or skin lesions. Psychiatric: Coperative. Nonsuicidal Musculoskeletal: No joint swelling or deformity. Normal range of motion. - Labs CBC & Chem 7: 12/29/19 06:39 12/29/19 06:39 Assessment and Plan Assessment: Acute alcohol withdrawal symptoms. Rule out now Acute alcohol intoxication with a blood level 362 on admission. Hypomagnesemia. Replaced. History of seizure disorder due to EtOH. Currently on Keppra at home Osteoarthritis Anxiety/depression BPH Severe alcohol abuse Nicotine addiction DVT prophylaxis with heparin subcu Plan:Continue with thiamine and multivitamins. Continue with home medications including antiepileptic medications. [facility] protocol in place. 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 PT/ OT has been consulted for possible rehab placement as the patient has unsteady gait. Discussed the treatment plan in detail with the patient's daughter. Further recommendations depending on the progress of the patient. Time with Patient: Greater than 30
[2019-12-31] MEDS: HEPARIN SODIUM,PORCINE 5,000 UNIT/ML 1 ML VIAL SQ SCH ×5 (00:20→23:04)
[2019-12-31] MEDS: GABAPENTIN 300 MG CAP PO SCH ×4 (06:27→21:35)
[2019-12-31] MEDS: ALBUTEROL NEBULIZED 2.5 MG/3 ML INHALATION SCH ×4 (07:33→18:49)
[2019-12-31] MEDS: THIAMINE 100 MG TAB PO SCH ×2 (07:41→17:00)
[2019-12-31] MEDS: PANTOPRAZOLE 40 MG TABLET PO SCH (07:41)
[2019-12-31] MEDS: MAGNESIUM OXIDE 400 MG TAB PO SCH ×2 (07:41→21:35)
[2019-12-31] MEDS: TAMSULOSIN 0.4 MG CAP.ER.24H PO SCH ×2 (07:41→21:35)
[2019-12-31] MEDS: levETIRAcetam 500 MG TAB PO SCH ×2 (07:41→21:35)
[2019-12-31] MEDS: TRIAMCINOLONE 0.1% CREAM 80 GM TUBE TOPICAL SCH ×2 (07:42→21:39)
[2019-12-31 16:03] VITALS: RESP 16
[2019-12-31] MEDS: NICOTINE 14MG/24HR PATCH TRANSDERM SCH (17:01)
[2019-12-31] MEDS: LORazepam 1 MG TAB PO SCH (23:03)
[2019-12-31] MEDS: traZODone HCL 50 MG TAB PO SCH (23:03)
[2020-01-01 05:11] VITALS: BP 110/64; TEMP 97.7
[2020-01-01] MEDS: ALBUTEROL NEBULIZED 2.5 MG/3 ML INHALATION SCH ×2 (07:14→10:49)
[2020-01-01] MEDS: GABAPENTIN 300 MG CAP PO SCH (08:53)
[2020-01-01] MEDS: THIAMINE 100 MG TAB PO SCH (08:53)
[2020-01-01] MEDS: TAMSULOSIN 0.4 MG CAP.ER.24H PO SCH (08:53)
[2020-01-01] MEDS: MAGNESIUM OXIDE 400 MG TAB PO SCH (08:53)
[2020-01-01] MEDS: NICOTINE 14MG/24HR PATCH TRANSDERM SCH (08:53)
[2020-01-01] MEDS: PANTOPRAZOLE 40 MG TABLET PO SCH (08:54)
[2020-01-01] MEDS: levETIRAcetam 500 MG TAB PO SCH (08:54)
[2020-01-01] MEDS: TRIAMCINOLONE 0.1% CREAM 80 GM TUBE TOPICAL SCH (08:54)
[2020-01-01] MEDS: HEPARIN SODIUM,PORCINE 5,000 UNIT/ML 1 ML VIAL SQ SCH (08:54)
[2020-01-01 10:52] VITALS: PULSE 80
--- NOTE | 2020-01-01 13:08 | P.DS ---
Providers Date of admission: 12/25/19 12:43 Expected date of discharge: 01/01/20 Attending physician: Mary Alice Park Primary care physician: Stated None Hospital Course: final diagnosis Acute alcohol withdrawal symptoms Acute alcohol intoxication with a blood level 362 on admission. Hypomagnesemia History of seizure disorder due to EtOH Osteoarthritis Anxiety/depression BPH Severe alcohol abuse Nicotine addiction DVT prophylaxis Discharge disposition Patient is being discharged in a stable condition with guarded prognosis to [facility] alcoholics rehab. Patient will follow-up with primary care provider upon discharge. Total time taken is 35 minutes. History of present illness This is a 59-year-old male who was recently admitted for alcohol intoxication and was sent from [place] for evaluation and was being closely monitored. During hospitalization patient was maintained on the ciwa protocol. Patient does elicit history of seizure disorder along with anxiety and nicotine dependence and was resumed on home medications. Patient improved slowly and was awaiting for placement to a rehab facility that would accept him. Patient was accepted at [place] [facility] and will be discharged today with his son transporting him to the facility. Currently patient denies any chest pain, shortness of breath, or palpitations. Patient is afebrile. Patient denies any nausea or vomiting and is tolerating diet. On exam vital signs are stable. There is 97.7F, pulse is 64, respirations are 16, blood pressure is 110/64, oxygen saturation is 97% on room air. Cardio S1, S2 are present. Respiratory system shows clear to auscultation. Abdomen is soft and nontender. Nervous system shows no focal deficits. Please refer to medication reconciliation sheet for a list of medications. Patient Condition at Discharge: Stable Plan - Discharge Summary New Discharge Prescriptions: New Nicotine 14Mg/24Hr Patch [Habitrol] 1 patch TRANSDERM DAILY 14 Days #14 patch Gabapentin [Neurontin] 600 mg PO QID #30 cap Continue Albuterol Inhaler [Ventolin Hfa Inhaler] 2 puff INHALATION RT-Q8H PRN PRN Reason: Shortness Of Breath Tamsulosin HCl [Flomax] 0.4 mg PO BID levETIRAcetam [Keppra] 500 mg PO Q12HR #60 tab Magnesium Oxide [Mag-Ox] 400 mg PO BID 8 Days #16 tab Acetaminophen Tab [Tylenol] 650 mg PO Q6HR PRN tab PRN Reason: Mild Pain Or Fever > 100.5 Pantoprazole [Protonix] 40 mg PO AC-BRKFST #30 tablet. Folic Acid 1 mg PO DAILY@1200 30 Days #30 tab Thiamine [Vitamin B-1] 100 mg PO DAILY #30 tab LORazepam [Ativan] 2 mg PO HS #8 tab traZODone HCL 150 mg PO HS 12 Days #12 tab Discontinued chlordiazePOXIDE HCl [Librium] See Taper PO DIRECTED Gabapentin 600 mg PO QID Discharge Medication List Albuterol Inhaler [Ventolin Hfa Inhaler] 2 puff INHALATION RT-Q8H PRN 11/11/19 [History] Tamsulosin HCl [Flomax] 0.4 mg PO BID 11/11/19 [History] levETIRAcetam [Keppra] 500 mg PO Q12HR #60 tab 12/19/19 [Rx] Acetaminophen Tab [Tylenol] 650 mg PO Q6HR PRN tab 12/23/19 [Rx] Folic Acid 1 mg PO DAILY@1200 30 Days #30 tab 12/23/19 [Rx] Magnesium Oxide [Mag-Ox] 400 mg PO BID 8 Days #16 tab 12/23/19 [Rx] Pantoprazole [Protonix] 40 mg PO AC-BRKFST #30 tablet. 12/23/19 [Rx] Thiamine [Vitamin B-1] 100 mg PO DAILY #30 tab 12/23/19 [Rx] Gabapentin [Neurontin] 600 mg PO QID #30 cap 01/01/20 [Rx] LORazepam [Ativan] 2 mg PO HS #8 tab 01/01/20 [Rx] Nicotine 14Mg/24Hr Patch [Habitrol] 1 patch TRANSDERM DAILY 14 Days #14 patch 01/01/20 [Rx] traZODone HCL 150 mg PO HS 12 Days #12 tab 01/01/20 [Rx] Follow up Appointment(s)/Referral(s): [facility] [Other] - 01/01/20 3:00 pm (PATIENT'S INTAKE IS AT 3:00PM. ) None,Stated [Primary Care Provider] - 1-2 days Activity/Diet/Wound Care/Special Instructions: clothes and wallet are in security Patient is going to [facility] for rehab Activity as tolerated Continue current diet Follow-up with primary care provider upon discharge Continue to avoid all alcohol intake Discharge Disposition: OTHER INSTITUTION NOT DEFINED
== END 2020-01-01 11:40 | DRG 897 ==
LOC: EC 11:55 → OBSVTOIN 12:43 → 6NMEDSUR 12:43 → 3SCARD 13:36 → 5NMEDONC 16:53
PROVIDERS: ADMIT Internal Medicine; ATTEND Internal Medicine
DX: F10.239 Alcohol dependence with withdrawal, unspecified (principal); E83.42 Hypomagnesemia; F17.200 Nicotine dependence, unspecified, uncomplicated; F32.9 Major depressive disorder, single episode, unspecified; F41.9 Anxiety disorder, unspecified; G40.909 Epilepsy, unspecified, not intractable, without status epilepticus; M19.90 Unspecified osteoarthritis, unspecified site; N40.0 Benign prostatic hyperplasia without lower urinary tract symptoms; Z96.652 Presence of left artificial knee joint; Y90.8 Blood alcohol level of 240 mg/100 ml or more; Z79.899 Other long term (current) drug therapy
CPT/HCPCS: 36415; 80048; 80053; 80320; 83735; 85025; 94640; 96361; 96365; 96366; 96368; 96372; 96375; 96376; 99285